=== PATIENT | female | born 1990 | race Caucasian/White ===

== ENCOUNTER 2016-12-19 12:30 | Emergency (ER) | payer OTHER ==
[2016-12-19 14:45] LABS: MEAN CORPUSCULAR HEMOGLOBIN 30.3 pg (27.0-33.0); MEAN CORPUSCULAR HGB CONC 33.9 g/dl (32.0-36.5); MEAN CORPUSCULAR VOLUME 89.2 fl (80.0-96.0); WHITE BLOOD COUNT 10.2 K/mm3 (4.0-10.0)
--- NOTE | 2016-12-19 16:27 | EDDOCDS ---
Physician Documentation [facility] Name: Lynnette Hinojosa Age: 26 yrs Sex: Female : 1990 Arrival Date: 12/19/2016 Time: 12:30 Bed PR Private MD: NO PRIMARY PHYSICIAN, . Disposition: 12/19/16 16:13 Discharged to Home/Self Care. Impression: related conditions, unspecified, first trimester, Pelvic and perineal pain. - Condition is Stable. - Discharge Instructions: First Trimester of , Pelvic Pain, Female. - Medication Reconciliation form. - Follow up: Your Family Nurse Practitioner; When: Call to arrange an appointment; Reason: Wound/Symptom Recheck, Recheck today's complaints, Worsening of conditions, Continuance of care. - Problem is an ongoing problem. - Symptoms are unchanged. Historical: - Allergies: Ibuprofen (Upset stomach); - Home Meds: 1. Folic Acid Oral 1 tab once daily 2. Prilosec Oral 1 cap once daily 3. Enbrel 25 mg (1 mL) SubQ solr 1 mL 2 times per wk - PMHx: Arthritis; Gastric Reflux; - PSHx: right foot surgery; - Social history: Smoking status: Patient states was never smoker of tobacco. No barriers to communication noted, The patient speaks fluent Malawian. - Family history: Not pertinent. - : The pt / caregiver states he / she is not on anticoagulants. Home medication list is obtained from the patient. - Exposure Risk Screening:: None identified. 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 1 in. (154.94 cm); Pain 9/10; 16:14 BP 133 / 80; Pulse 102; Resp 18; Temp 97.6(O); Pulse Ox 98% on R/A; Pain 5/10; ct3 12:32 Body Mass Index 30.23 (72.57 kg, 154.94 cm) elp MDM: 14:20 Complete Blood Count Ordered. EDMS 14:20 Hcg, Serum Quantitative Ordered. EDMS 14:20 Rh Only Ordered. EDMS 14:20 Urinalysis Ordered. EDMS 14:20 Urine Culture Ordered. EDMS 14:22 US 1st trimester Ordered. EDMS 14:39 Financial registration complete. lg 15:06 TRANSVAGINAL US Ordered. EDMS 15:06 DUPLEX SCAN LIMITED (DOPPLER) Ordered. EDMS 15:15 [facility] Payment Agreement was scanned into [employer] and attached to record. lg 16:01 Complete Blood Count Reviewed. cc10 16:01 Urinalysis Reviewed. cc10 16:01 Hcg, Serum Quantitative Reviewed. cc10 16:01 Rh Only Reviewed. cc10 Signatures: Dispatcher [employer] Garcia CarrasquilloRN RN ms2 [place], Reg Reg lg Brooke PalaciosRN RN rs3 Manohar Vogt, PAJoleen PAJoleen cc10 The chart was reviewed and I authenticate all verbal orders and agree with the evaluation and treatment provided.Corrections: (The following items were deleted from the chart) 12:52 12:51 Home Meds: embryl weekly; takes every thursday; rs3 rs3 Attachments: 15:15 [facility] Payment Agreement lg MTDD
--- NOTE | 2016-12-19 16:27 | EDDOCDS ---
Nurse's Notes [facility] Name: Lynnette Hinojosa Age: 26 yrs Sex: Female : 1990 Arrival Date: 12/19/2016 Time: 12:30 Bed PR Private MD: NO PRIMARY PHYSICIAN, . Diagnosis: related conditions, unspecified, first trimester;Pelvic and perineal pain Presentation: 12/19 12:48 Presenting complaint: Patient states: back pain radiates lower abdomen, vomiting since rs3 last night. Risk factors: the patient reports no vaginal bleeding. Adult Sepsis Screening: The patient does not have new or worsening altered mentation. Patient's respiratory rate is less than 22. Systolic blood pressure is greater than 100. Patient has a qSOFA score of 0- Negative Sepsis Screen. Suicide/Homicide risk assessment- the patient denies having any suicidal and/or homicidal ideations and does not present with any other emotional, behavioral or mental health complaints. Status: Patient is not a cash register servicer or dependent. Transition of care: patient was not received from another setting of care. 12:48 Acuity: JULIO CESAR Level 4 rs3 12:48 Method Of Arrival: Walkin/Carried/Asstd rs3 Triage Assessment: 12:51 General: Appears in no apparent distress. Pain: Location: lumbar area. Pt Declines HIV rs3 testing. GI: Parent/caregiver reports the patient having nausea. 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 Folic Acid Oral 1 tab once daily 2. Prilosec Oral 1 cap once daily 3. Enbrel 25 mg (1 mL) SubQ solr 1 mL 2 times per wk - PMHx: Arthritis; Gastric Reflux; - PSHx: right foot surgery; - Social history: Smoking status: Patient states was never smoker of tobacco. No barriers to communication noted, The patient speaks fluent Yakut. - Family history: Not pertinent. - : The pt / caregiver states he / she is not on anticoagulants. Home medication list is obtained from the patient. - Exposure Risk Screening:: None identified. Screenin:25 Screening information is obtained from prior medical records. Fall risk: No risks ms2 identified. Assistance ADL's: requires no assistance with activities of daily living. Abuse/DV Screen: The patient / caregiver reports he/she is: not in a situation that causes fear, pain or injury. Nutritional screening: No deficits noted. Advance Directives: Currently, there is no health care proxy. There is no active DNR order. There is no living will. There is no Power of Chief Investment Officer. Advance directive information has not previously been placed in an [facility] medical record. Further advance directive information is declined. home support is adequate. Assessment: 16:20 General: Appears in no apparent distress, Behavior is cooperative. Neurological: Level ms2 of Consciousness is awake, alert, obeys commands. Respiratory: No deficits noted. Airway is patent Respiratory effort is even, unlabored, Respiratory pattern is regular, symmetrical. GI: Abdomen is non- distended. Derm: Skin is pink, warm & dry. Musculoskeletal: Range of motion intact in all extremities. Vital Signs: 12:32 BP 142 / 85; Pulse 99; Resp 18; Temp 99.1; Pulse Ox 99% ; Weight 72.57 kg; Height 5 ft. elp 1 in. (154.94 cm); Pain 9/10; 16:14 BP 133 / 80; Pulse 102; Resp 18; Temp 97.6(O); Pulse Ox 98% on R/A; Pain 5/10; ct3 12:32 Body Mass Index 30.23 (72.57 kg, 154.94 cm) elp Vitals: 12:32 Log In Time: December 19, 2016 at 12:30. elp ED Course: 12:32 Patient visited by No Moran PCA. elp 12:32 NO PRIMARY PHYSICIAN, . is Private Physician. elp 12:32 Patient moved to Waiting elp 12:33 Patient moved to Pre RCE elp 12:49 Triage Initiated rs3 13:50 Patient moved to Triage 1 dwg 14:09 Manohar Vogt [facility]-C [facility] cc10 14:09 Maximilian Jackson MD is Attending Physician. cc10 14:15 Patient visited by Manohar Vogt PA-C. cc10 14:15 Patient visited by Manohar Vogt PA-C. cc10 14:32 Patient moved to TR3 ct3 14:32 Complete Blood Count Sent. ct3 14:32 Hcg, Serum Quantitative Sent. ct3 14:32 Rh Only Sent. ct3 14:32 Urinalysis Sent. ct3 14:32 Urine Culture Sent. ct3 14:37 Patient moved to TR1 ct3 14:50 Patient visited by Helen Salcido PCA. ct3 15:01 Patient moved to Ultrasound sm5 15:15 [facility] Payment Agreement was scanned into [employer] and attached to record. lg 15:51 Patient moved to TR1 sm5 15:54 Patient visited by Helen Salcido PCA. ct3 16:03 Patient moved to PR2 / ct3 16:13 Your Flanging Roll Operator is Referral Physician. cc10 16:15 Patient visited by Helen Salcido PCA. ct3 16:20 Patient visited by Garcia Phillips RN. ms2 16:25 The patient / caregiver is instructed regarding the plan of care and ED course. ms2 16:25 No IV's were initiated during this patient's visit. No procedures done that require ms2 assistance. Order Results: Lab Order: Complete Blood Count; SPEC'M 12/19/16 14:32 Test: WHITE BLOOD COUNT; Value: 10.2; Range: 4.0-10.0; Abnormal: Above high normal; Units: K/mm3; Status: F Test: RED BLOOD COUNT; Value: 4.38; Range: 4.00-5.40; Units: M/mm3; Status: F Test: HEMOGLOBIN; Value: 13.3; Range: 12.0-16.0; Units: g/dl; Status: F Test: HEMATOCRIT; Value: 39.1; Range: 36.0-47.0; Units: %; Status: F Test: MEAN CORPUSCULAR VOLUME; Value: 89.2; Range: 80.0-96.0; Units: fl; Status: F Test: MEAN CORPUSCULAR HEMOGLOBIN; Value: 30.3; Range: 27.0-33.0; Units: pg; Status: F Test: MEAN CORPUSCULAR HGB CONC; Value: 33.9; Range: 32.0-36.5; Units: g/dl; Status: F Test: RED CELL DISTRIBUTION WIDTH; Value: 13.0; Range: 11.5-14.5; Units: %; Status: F Test: PLATELET COUNT, AUTOMATED; Value: 297; Range: 150-450; Units: k/mm3; Status: F Lab Order: Hcg, Serum Quantitative; [facility] 12/19/16 14:32 Test: HCG, SERUM QUANTITATIVE; Value: 8436; Units: MIU/ML; Status: F Test Note: ; GESTATIONAL AGE APPROXIMATE HCG RANGE (MIU/ML) 0.2-1 WEEK 5-50 1-2 WEEKS 50-500 2-3 WEEKS 100-5,000 3-4 WEEKS 500-10,000 4-5 WEEKS 1,000-50,000 5-6 WEEKS 10,000-100,000 6-8 WEEKS 15,000-200,000 2-3 MONTHS 10,000-100,000 NON FEMALES LESS THAN 3.0 Patient samples may contain human heterophilic antibodies that could react with immunoassays to give falsely elevated or depressed results. This assay has been designed to minimize interference from heterophilic antibodies. Elevated hCG levels have also been associated with trophoblastic disease and nontrophoblastic neoplasms. The possibility of having these diseases should be considered before a diagnosis of is made. This test is not intended for use as a surrogate marker for aiding in the diagnosis or monitoring the treatment of cancer patients. Siemens Questli methodology. Lab Order: Rh Only; [facility] 12/19/16 14:32 Test: RH; Value: NEGATIVE; Status: F Lab Order: Urinalysis; [facility] 12/19/16 14:32 Test: APPEARANCE, URINE; Value: CLEAR; Range: CLEAR; Status: F Test: COLOR, URINE; Value: STRAW; Range: YELLOW; Status: F Test: PH,URINE; Value: 6.0; Range: 5.0-9.0; Units: UNITS; Status: F Test: SPECIFIC GRAVITY URINE AUTO; Value: 1.005; Range: 1.002-1.035; Status: F Test: PROTEIN, URINE AUTO; Value: NEGATIVE; Range: NEGATIVE; Units: mg/dL; Status: F Test: GLUCOSE, URINE (UA) AUTO; Value: NEGATIVE; Range: NEGATIVE; Units: mg/dL; Status: F Test: KETONE, URINE AUTO; Value: TRACE; Range: NEGATIVE; Abnormal: Above high normal; Units: mg/dL; Status: F Test: UROBILINOGEN, URINE AUTO; Value: 0.2; Range: 0.0-2.0; Units: mg/dL; Status: F Test: BILIRUBIN, URINE AUTO; Value: NEGATIVE; Range: NEGATIVE; Status: F Test: NITRITE, URINE AUTO; Value: NEGATIVE; Range: NEGATIVE; Status: F Test: LEUKOCYTE ESTERASE, URINE AUTO; Value: NEGATIVE; Range: NEGATIVE; Status: F Test: BLOOD, URINE BLOOD; Value: NEGATIVE; Range: NEGATIVE; Status: F Test: WBC, URINE AUTO; Value: 1; Range: 0-3; Units: /HPF; Status: F Test: RBC, URINE AUTO; Value: 1; Range: 0-3; Units: /HPF; Status: F Test: BACTERIA, URINE AUTO; Value: 1+; Range: NEGATIVE; Abnormal: Above high normal; Status: F Test: SQUAMOUS EPITHELIAL CELL UR AU; Value: 1; Range: 0-6; Units: /HPF; Status: F Test: MUCUS, URINE; Value: SMALL; Range: NEGATIVE; Status: F Test: HYALINE CAST, URINE AUTO; Value: 0; Range: 0-1; Units: /LPF; Status: F Outcome: 16:13 Discharge ordered by Provider. cc10 16:26 Discharge Assessment: patient administered narcotics - no. The following High Risk ms2 Discharge criteria are identified: None. Discharged to home ambulatory. Condition: stable. Discharge instructions given to patient, Instructed on discharge instructions, follow up and referral plans. Demonstrated understanding of instructions, Pt was receptive of discharge instructions/ teaching. No special radiology studies were completed. Property sent home with patient. 16:26 Patient left the ED. ms2 Signatures: Garcia PhillipsRN RN ms2 Fredy Yee, RN RN Alejo Nguyen, Jeremias Reg Liliam Kilgore Rosemary, RN RN rs3 Helen Salcido, AIRCRAFT SHIPPING CHECKER AIRCRAFT SHIPPING CHECKER ct3 No Moran, AIRCRAFT SHIPPING CHECKER AIRCRAFT SHIPPING CHECKER elp Manohar Vogt, PA-C PA-C cc10 Corrections: (The following items were deleted from the chart) 12:52 12:51 Home Meds: embryl weekly; takes every thursday; rs3 rs3 MTDD
[2016-12-19] MEDS ORDERED: IPRATROPIUM 0.5MG/ALBUTEROL 2.5MG INH SOL UD 3ML (DUONEB)(J7620) As Ordered ONE (20:27)
[2016-12-20] MEDS ORDERED: methylPREDNISolone INJ 125 MG/2 ML VIAL (J2930) As Ordered ONE (04:35)
[2016-12-20] MEDS ORDERED: IPRATROPIUM 0.5MG/ALBUTEROL 2.5MG INH SOL UD 3ML (DUONEB)(J7620) As Ordered ONE (08:08)
--- NOTE | 2016-12-20 22:05 | REP ---
First trimester OB ultrasound 12/19/16 Indication: Abdominal pain, cramping Comparison: None Technique: Transabdominal and transvaginal ultrasound was performed Findings: Date of last menstrual period is 11/13/16. According to last menstrual period fetus should be 0-cpdi-6-day gestational age. The patient is G1, P 0. Uterus measures 9.3 x 5.0 x 5.5 cm and is anteverted. There is a single intrauterine gestational sac measuring 0.98 x 1.08 x 0.64 cm corresponding to a mean sac size of 0.9 mm corresponding with 1-iobn-0-day gestational age. There is a small yolk sac within the intrauterine gestational sac. There is no definite pole at this time. There is no visualized subchorionic hemorrhage. There is a very minimally complex right adnexal cyst which measures 6.9 x 6.1 x 5.1 cm. The right ovary measures 9.8 x 7.6 x 5.7 cm. Left ovary measures 2.1 x 2.1 x 1.8 cm contains a few small follicles. Perfusion is noted to the bilateral ovaries, therefore no evidence of torsion. There is trace free fluid in the posterior cul-de-sac. Impression 1. Single intrauterine gestational sac with a mean sac diameter of 0.9 mm corresponding to 5 week 5-day gestational age. A small yolk sac is seen but no pole is yet identified. Recommend correlation with serial quantitative beta HCG and follow-up for sound to ensure a viable intrauterine with a pole. 2. Minimally complex 6.9 cm right ovarian cyst. Unremarkable left ovary. Perfusion is noted to the bilateral ovaries and therefore no evidence of torsion. 3. Trace free fluid in posterior cul-de-sac. Signed by Sissy Marte MD 12/20/2016 09:56 P
--- NOTE | 2016-12-21 17:28 | EDDOCDS ---
Nurse's Notes [facility] Name: Lynnette Hinojosa Age: 26 yrs Sex: Female : 1990 Arrival Date: 12/19/2016 Time: 12:30 Bed PR Private MD: NO PRIMARY PHYSICIAN, . Diagnosis: related conditions, unspecified, first trimester;Pelvic and perineal pain Presentation: 12/19 12:48 Presenting complaint: Patient states: back pain radiates lower abdomen, vomiting since rs3 last night. Risk factors: the patient reports no vaginal bleeding. Adult Sepsis Screening: The patient does not have new or worsening altered mentation. Patient's respiratory rate is less than 22. Systolic blood pressure is greater than 100. Patient has a qSOFA score of 0- Negative Sepsis Screen. Suicide/Homicide risk assessment- the patient denies having any suicidal and/or homicidal ideations and does not present with any other emotional, behavioral or mental health complaints. Status: Patient is not a child and family services specialist or dependent. Transition of care: patient was not received from another setting of care. 12:48 Acuity: JULIO CESAR Level 4 rs3 12:48 Method Of Arrival: Walkin/Carried/Asstd rs3 Triage Assessment: 12:51 General: Appears in no apparent distress. Pain: Location: lumbar area. Pt Declines HIV rs3 testing. GI: Parent/caregiver reports the patient having nausea. 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 Folic Acid Oral 1 tab once daily 2. Prilosec Oral 1 cap once daily 3. Enbrel 25 mg (1 mL) SubQ solr 1 mL 2 times per wk - PMHx: Arthritis; Gastric Reflux; - PSHx: right foot surgery; - Social history: Smoking status: Patient states was never smoker of tobacco. No barriers to communication noted, The patient speaks fluent Greek. - Family history: Not pertinent. - : The pt / caregiver states he / she is not on anticoagulants. Home medication list is obtained from the patient. - Exposure Risk Screening:: None identified. Screenin:25 Screening information is obtained from prior medical records. Fall risk: No risks ms2 identified. Assistance ADL's: requires no assistance with activities of daily living. Abuse/DV Screen: The patient / caregiver reports he/she is: not in a situation that causes fear, pain or injury. Nutritional screening: No deficits noted. Advance Directives: Currently, there is no health care proxy. There is no active DNR order. There is no living will. There is no Power of Medical Library Assistant. Advance directive information has not previously been placed in an [facility] medical record. Further advance directive information is declined. home support is adequate. Assessment: 16:20 General: Appears in no apparent distress, Behavior is cooperative. Neurological: Level ms2 of Consciousness is awake, alert, obeys commands. Respiratory: No deficits noted. Airway is patent Respiratory effort is even, unlabored, Respiratory pattern is regular, symmetrical. GI: Abdomen is non- distended. Derm: Skin is pink, warm & dry. Musculoskeletal: Range of motion intact in all extremities. Vital Signs: 12:32 BP 142 / 85; Pulse 99; Resp 18; Temp 99.1; Pulse Ox 99% ; Weight 72.57 kg; Height 5 ft. elp 1 in. (154.94 cm); Pain 9/10; 16:14 BP 133 / 80; Pulse 102; Resp 18; Temp 97.6(O); Pulse Ox 98% on R/A; Pain 5/10; ct3 12:32 Body Mass Index 30.23 (72.57 kg, 154.94 cm) elp Vitals: 12:32 Log In Time: December 19, 2016 at 12:30. elp ED Course: 12:32 Patient visited by No Moran PCA. elp 12:32 NO PRIMARY PHYSICIAN, . is Private Physician. elp 12:32 Patient moved to Waiting elp 12:33 Patient moved to Pre RCE elp 12:49 Triage Initiated rs3 13:50 Patient moved to Triage 1 dwg 14:09 [facility] cc10 14:09 Maximilian Jackson MD is Attending Physician. cc10 14:15 Patient visited by Manohar Vogt PA-C. cc10 14:15 Patient visited by Manohar Vogt PA-C. cc10 14:32 Patient moved to TR3 ct3 14:32 Complete Blood Count Sent. ct3 14:32 Hcg, Serum Quantitative Sent. ct3 14:32 Rh Only Sent. ct3 14:32 Urinalysis Sent. ct3 14:32 Urine Culture Sent. ct3 14:37 Patient moved to TR1 ct3 14:50 Patient visited by Helen Salcido PCA. ct3 15:01 Patient moved to Ultrasound sm5 15:15 [facility] [place] Agreement was scanned into [employer] and attached to record. lg 15:51 Patient moved to TR1 sm5 15:54 Patient visited by Helen Salcido PCA. ct3 16:03 Patient moved to PR2 / ct3 16:13 Your [facility] [employer] is Referral Physician. cc10 16:15 Patient visited by Helen Salcido PCA. ct3 16:20 Patient visited by Garcia Phillips RN. ms2 16:25 The patient / caregiver is instructed regarding the plan of care and ED course. ms2 16:25 No IV's were initiated during this patient's visit. No procedures done that require ms2 assistance. 12/20 12:51 T-Sheet-- Draft Copy was scanned into [employer] and attached to record. gb 22:57 US 1st trimester Returned. EDMS Order Results: Lab Order: Complete Blood Count; SPEC'M 12/19/16 14:32 Test: WHITE BLOOD COUNT; Value: 10.2; Range: 4.0-10.0; Abnormal: Above high normal; Units: K/mm3; Status: F Test: RED BLOOD COUNT; Value: 4.38; Range: 4.00-5.40; Units: M/mm3; Status: F Test: HEMOGLOBIN; Value: 13.3; Range: 12.0-16.0; Units: g/dl; Status: F Test: HEMATOCRIT; Value: 39.1; Range: 36.0-47.0; Units: %; Status: F Test: MEAN CORPUSCULAR VOLUME; Value: 89.2; Range: 80.0-96.0; Units: fl; Status: F Test: MEAN CORPUSCULAR HEMOGLOBIN; Value: 30.3; Range: 27.0-33.0; Units: pg; Status: F Test: MEAN CORPUSCULAR HGB CONC; Value: 33.9; Range: 32.0-36.5; Units: g/dl; Status: F Test: RED CELL DISTRIBUTION WIDTH; Value: 13.0; Range: 11.5-14.5; Units: %; Status: F Test: PLATELET COUNT, AUTOMATED; Value: 297; Range: 150-450; Units: k/mm3; Status: F Lab Order: Hcg, Serum Quantitative; [facility]' 12/19/16 14:32 Test: HCG, SERUM QUANTITATIVE; Value: 8436; Units: MIU/ML; Status: F Test Note: ; GESTATIONAL AGE APPROXIMATE HCG RANGE (MIU/ML) 0.2-1 WEEK 5-50 1-2 WEEKS 50-500 2-3 WEEKS 100-5,000 3-4 WEEKS 500-10,000 4-5 WEEKS 1,000-50,000 5-6 WEEKS 10,000-100,000 6-8 WEEKS 15,000-200,000 2-3 MONTHS 10,000-100,000 NON FEMALES LESS THAN 3.0 Patient samples may contain human heterophilic antibodies that could react with immunoassays to give falsely elevated or depressed results. This assay has been designed to minimize interference from heterophilic antibodies. Elevated hCG levels have also been associated with trophoblastic disease and nontrophoblastic neoplasms. The possibility of having these diseases should be considered before a diagnosis of is made. This test is not intended for use as a surrogate marker for aiding in the diagnosis or monitoring the treatment of cancer patients. Siemens [employer] methodology. Lab Order: Rh Only; [facility] 12/19/16 14:32 Test: RH; Value: NEGATIVE; Status: F Lab Order: Urinalysis; [facility]' 12/19/16 14:32 Test: APPEARANCE, URINE; Value: CLEAR; Range: CLEAR; Status: F Test: COLOR, URINE; Value: STRAW; Range: YELLOW; Status: F Test: PH,URINE; Value: 6.0; Range: 5.0-9.0; Units: UNITS; Status: F Test: SPECIFIC GRAVITY URINE AUTO; Value: 1.005; Range: 1.002-1.035; Status: F Test: PROTEIN, URINE AUTO; Value: NEGATIVE; Range: NEGATIVE; Units: mg/dL; Status: F Test: GLUCOSE, URINE (UA) AUTO; Value: NEGATIVE; Range: NEGATIVE; Units: mg/dL; Status: F Test: KETONE, URINE AUTO; Value: TRACE; Range: NEGATIVE; Abnormal: Above high normal; Units: mg/dL; Status: F Test: UROBILINOGEN, URINE AUTO; Value: 0.2; Range: 0.0-2.0; Units: mg/dL; Status: F Test: BILIRUBIN, URINE AUTO; Value: NEGATIVE; Range: NEGATIVE; Status: F Test: NITRITE, URINE AUTO; Value: NEGATIVE; Range: NEGATIVE; Status: F Test: LEUKOCYTE ESTERASE, URINE AUTO; Value: NEGATIVE; Range: NEGATIVE; Status: F Test: BLOOD, URINE BLOOD; Value: NEGATIVE; Range: NEGATIVE; Status: F Test: WBC, URINE AUTO; Value: 1; Range: 0-3; Units: /HPF; Status: F Test: RBC, URINE AUTO; Value: 1; Range: 0-3; Units: /HPF; Status: F Test: BACTERIA, URINE AUTO; Value: 1+; Range: NEGATIVE; Abnormal: Above high normal; Status: F Test: SQUAMOUS EPITHELIAL CELL UR AU; Value: 1; Range: 0-6; Units: /HPF; Status: F Test: MUCUS, URINE; Value: SMALL; Range: NEGATIVE; Status: F Test: HYALINE CAST, URINE AUTO; Value: 0; Range: 0-1; Units: /LPF; Status: F Lab Order: Urine Culture; SPEC'M 12/19/16 14:32 Test: URINE CULTURE; Value: URINE CULTURE RESULT NO GROWTH CLINICAL SIGNIFICANCE 1 ORGANISM; Status: F Radiology Order: US 1st trimester Test: US 1st trimester REASON FOR EXAMINATION: Abdomen Pain; First trimester OB ultrasound 12/19/16; ; Indication: Abdominal pain, cramping; ; Comparison: None; ; Technique: Transabdominal and transvaginal ultrasound was performed; ; Findings: Date of last menstrual period is 11/13/16. According to last menstrual; period fetus should be 8-lkpp-4-day gestational age. The patient is G1, P 0.; ; Uterus measures 9.3 x 5.0 x 5.5 cm and is anteverted.; ; There is a single intrauterine gestational sac measuring 0.98 x 1.08 x 0.64 cm; corresponding to a mean sac size of 0.9 mm corresponding with 0-zekc-3-day; gestational age. There is a small yolk sac within the intrauterine gestational; sac. There is no definite pole at this time. There is no visualized; subchorionic hemorrhage.; ; There is a very minimally complex right adnexal cyst which measures 6.9 x 6.1 x; 5.1 cm. The right ovary measures 9.8 x 7.6 x 5.7 cm.; ; Left ovary measures 2.1 x 2.1 x 1.8 cm contains a few small follicles. Perfusion; is noted to the bilateral ovaries, therefore no evidence of torsion.; ; There is trace free fluid in the posterior cul-de-sac.; ; Impression; 1. Single intrauterine gestational sac with a mean sac diameter of 0.9 mm; corresponding to 5 week 5-day gestational age. A small yolk sac is seen but no; pole is yet identified. Recommend correlation with serial quantitative; beta HCG and follow-up for sound to ensure a viable intrauterine with a; pole.; ; 2. Minimally complex 6.9 cm right ovarian cyst. Unremarkable left ovary.; Perfusion is noted to the bilateral ovaries and therefore no evidence of; torsion.; ; 3. Trace free fluid in posterior cul-de-sac.; ; ; ; ; Signed by; Sissy Marte MD 12/20/2016 09:56 P; Outcome: 12/19 16:13 Discharge ordered by Provider. cc10 16:26 Discharge Assessment: patient administered narcotics - no. The following High Risk ms2 Discharge criteria are identified: None. Discharged to home ambulatory. Condition: stable. Discharge instructions given to patient, Instructed on discharge instructions, follow up and referral plans. Demonstrated understanding of instructions, Pt was receptive of discharge instructions/ teaching. Ultrasound Study completed. Property sent home with patient. 16:26 Patient left the ED. ms2 Signatures: Dispatcher [employer] EDMS Garcia Phillips RN RN ms2 Fredy Yee RN RN dwg Patsy York, Reg Reg gb [place], Reg Reg lg Liliam Ramirez sm5 Brooke Palacios RN RN rs3 Helen Salcido, BUSINESS ANALYSIS CONSULTANT BUSINESS ANALYSIS CONSULTANT ct3 No Moran, BUSINESS ANALYSIS CONSULTANT BUSINESS ANALYSIS CONSULTANT elp Manohar Vogt, PA-C PA-C cc10 Corrections: (The following items were deleted from the chart) 12:52 12:51 Home Meds: embryl weekly; takes every thursday; rs3 rs3 16:27 16:26 No special radiology studies were completed ms2 ms2 Chart Complete MTDD
--- NOTE | 2016-12-21 17:28 | EDDOCDS ---
Physician Documentation [facility] Name: Lynnette Hinojosa Age: 26 yrs Sex: Female : 1990 Arrival Date: 12/19/2016 Time: 12:30 Bed PR Private MD: NO PRIMARY PHYSICIAN, . Disposition: 12/19/16 16:13 Discharged to Home/Self Care. Impression: related conditions, unspecified, first trimester, Pelvic and perineal pain. - Condition is Stable. - Discharge Instructions: First Trimester of , Pelvic Pain, Female. - Medication Reconciliation form. - Follow up: Your Population Health Manager; When: Call to arrange an appointment; Reason: Wound/Symptom Recheck, Recheck today's complaints, Worsening of conditions, Continuance of care. - Problem is an ongoing problem. - Symptoms are unchanged. Historical: - Allergies: Ibuprofen (Upset stomach); - Home Meds: 1. Folic Acid Oral 1 tab once daily 2. Prilosec Oral 1 cap once daily 3. Enbrel 25 mg (1 mL) SubQ solr 1 mL 2 times per wk - PMHx: Arthritis; Gastric Reflux; - PSHx: right foot surgery; - Social history: Smoking status: Patient states was never smoker of tobacco. No barriers to communication noted, The patient speaks fluent [place]. - Family history: Not pertinent. - : The pt / caregiver states he / she is not on anticoagulants. Home medication list is obtained from the patient. - Exposure Risk Screening:: None identified. 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 1 in. (154.94 cm); Pain 9/10; 16:14 BP 133 / 80; Pulse 102; Resp 18; Temp 97.6(O); Pulse Ox 98% on R/A; Pain 5/10; ct3 12:32 Body Mass Index 30.23 (72.57 kg, 154.94 cm) elp MDM: 14:20 Complete Blood Count Ordered. EDMS 14:20 Hcg, Serum Quantitative Ordered. EDMS 14:20 Rh Only Ordered. EDMS 14:20 Urinalysis Ordered. EDMS 14:20 Urine Culture Ordered. EDMS 14:22 US 1st trimester Ordered. EDMS 14:39 Financial registration complete. lg 15:06 TRANSVAGINAL US Ordered. EDMS 15:06 DUPLEX SCAN LIMITED (DOPPLER) Ordered. EDMS 15:15 [facility] [place] Agreement was scanned into [employer] and attached to record. lg 16:01 Complete Blood Count Reviewed. cc10 16:01 Urinalysis Reviewed. cc10 16:01 Hcg, Serum Quantitative Reviewed. cc10 16:01 Rh Only Reviewed. cc10 12/20 12:51 T-Sheet-- Draft Copy was scanned into [employer] and attached to record. gb Signatures: Dispatcher [employer] Garcia Carrasquillo,RN RN ms2 Patsy York, Reg Reg gb [place], Reg Reg lg Brooke Palacios RN RN rs3 Manohar Vogt, PATravisC PATravisC cc10 The chart was reviewed and I authenticate all verbal orders and agree with the evaluation and treatment provided.Corrections: (The following items were deleted from the chart) 12/19 12:52 12:51 Home Meds: embryl weekly; takes every thursday; rs3 rs3 Attachments: 15:15 [facility] Payment Agreement 12/20 12:51 T-Sheet-- Draft Copy gb Chart Complete MTDD
--- NOTE | 2016-12-21 17:28 | EDDOCDS ---
Physician Documentation [facility] Name: Lynnette Hinojosa Age: 26 yrs Sex: Female : 1990 Arrival Date: 12/19/2016 Time: 12:30 Bed PR Private MD: NO PRIMARY PHYSICIAN, . Disposition: 12/19/16 16:13 Discharged to Home/Self Care. Impression: related conditions, unspecified, first trimester, Pelvic and perineal pain. - Condition is Stable. - Discharge Instructions: First Trimester of , Pelvic Pain, Female. - Medication Reconciliation form. - Follow up: Your Pipeline Welder; When: Call to arrange an appointment; Reason: Wound/Symptom Recheck, Recheck today's complaints, Worsening of conditions, Continuance of care. - Problem is an ongoing problem. - Symptoms are unchanged. Historical: - Allergies: Ibuprofen (Upset stomach); - Home Meds: 1. Folic Acid Oral 1 tab once daily 2. Prilosec Oral 1 cap once daily 3. Enbrel 25 mg (1 mL) SubQ solr 1 mL 2 times per wk - PMHx: Arthritis; Gastric Reflux; - PSHx: right foot surgery; - Social history: Smoking status: Patient states was never smoker of tobacco. No barriers to communication noted, The patient speaks fluent [place]er. - Family history: Not pertinent. - : The pt / caregiver states he / she is not on anticoagulants. Home medication list is obtained from the patient. - Exposure Risk Screening:: None identified. 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 1 in. (154.94 cm); Pain 9/10; 16:14 BP 133 / 80; Pulse 102; Resp 18; Temp 97.6(O); Pulse Ox 98% on R/A; Pain 5/10; ct3 12:32 Body Mass Index 30.23 (72.57 kg, 154.94 cm) elp MDM: 14:20 Complete Blood Count Ordered. EDMS 14:20 Hcg, Serum Quantitative Ordered. EDMS 14:20 Rh Only Ordered. EDMS 14:20 Urinalysis Ordered. EDMS 14:20 Urine Culture Ordered. EDMS 14:22 US 1st trimester Ordered. EDMS 14:39 Financial registration complete. lg 15:06 TRANSVAGINAL US Ordered. EDMS 15:06 DUPLEX SCAN LIMITED (DOPPLER) Ordered. EDMS 15:15 [facility] [place] Agreement was scanned into [email or web address] and attached to record. lg 16:01 Complete Blood Count Reviewed. cc10 16:01 Urinalysis Reviewed. cc10 16:01 Hcg, Serum Quantitative Reviewed. cc10 16:01 Rh Only Reviewed. cc10 12/20 12:51 T-Sheet-- Draft Copy was scanned into [employer] and attached to record. gb Signatures: Dispatcher [employer] Garcia Carrasquillo,RN RN ms2 Patsy York, Reg Reg gb [place], Reg Reg lg Brooke Palacios RN RN rs3 Manohar Vogt, PATravisC PATravisC cc10 The chart was reviewed and I authenticate all verbal orders and agree with the evaluation and treatment provided.Corrections: (The following items were deleted from the chart) 12/19 12:52 12:51 Home Meds: embryl weekly; takes every thursday; rs3 rs3 Attachments: 15:15 [facility] Payment Agreement 12/20 12:51 T-Sheet-- Draft Copy gb Chart Complete MTDD
== END 2016-12-19 16:26 | disposition home or self-care (01) ==
LOC: M ED 12:30
DX: O99.89 Other specified diseases and conditions complicating pregnancy, childbirth and the puerperium (principal); R10.2 Pelvic and perineal pain; Z3A.01 Less than 8 weeks gestation of pregnancy; O99.611 Diseases of the digestive system complicating pregnancy, first trimester; K21.9 Gastro-esophageal reflux disease without esophagitis; M19.90 Unspecified osteoarthritis, unspecified site; Z79.899 Other long term (current) drug therapy; Z88.6 Allergy status to analgesic agent

== ENCOUNTER 2017-01-02 13:24 | Emergency (ER) | payer OTHER ==
[2017-01-02] MEDS ORDERED: METOCLOPRAMIDE INJ 10MG/2ML VIAL (J2765) As Ordered ONE (14:06)
[2017-01-02 14:20] LABS: MEAN CORPUSCULAR HEMOGLOBIN 30.8 pg (27.0-33.0); MEAN CORPUSCULAR HGB CONC 35.5 g/dl (32.0-36.5); MEAN CORPUSCULAR VOLUME 86.9 fl (80.0-96.0); RED CELL DISTRIBUTION WIDTH 12.9 % (11.5-14.5); WHITE BLOOD COUNT 12.1 K/mm3 (4.0-10.0)
[2017-01-02] MEDS ORDERED: PROMETHAZINE INJ 25 MG/ML VIAL (J2550) As Ordered ONE (16:29)
--- NOTE | 2017-01-02 19:53 | EDDOCDS ---
Nurse's Notes [facility] Name: Lynnette Hinojosa Age: 26 yrs Sex: Female : 1990 Arrival Date: 01/02/2017 Time: 13:24 Bed 8 Private MD: Vidhi Welch Diagnosis: Mild hyperemesis gravidarum Presentation: 01/02 13:28 Presenting complaint: Patient states: 7 weeks and nausea and vomiting slight pml lower abdominal pain. took zofran at 0800 this AM. Risk factors: the patient reports no vaginal bleeding. Adult Sepsis Screening: The patient does not have new or worsening altered mentation. Patient's respiratory rate is less than 22. Systolic blood pressure is greater than 100. Patient has a qSOFA score of 0- Negative Sepsis Screen. Suicide/Homicide risk assessment- the patient denies having any suicidal and/or homicidal ideations and does not present with any other emotional, behavioral or mental health complaints. Status: Patient is not a director career services or dependent. Transition of care: patient was not received from another setting of care. 13:28 Acuity: JULIO CESAR Level 3 pml 13:28 Method Of Arrival: Ambulance pml Triage Assessment: 13:44 General: Appears in no apparent distress, comfortable, Behavior is appropriate for age, pml cooperative. Pain: Location: suprapubic area Pain currently is 7 out of 10 on a pain scale. Quality of pain is described as crampy. HIV screening NA for this visit Offered previously. The patient is triaged at the bedside. See Assessment in Nurses Notes section of ED record. Neurological: Level of Consciousness is awake, alert, Oriented to person, place, time. Cardiovascular: Capillary refill < 3 seconds. Respiratory: Airway is patent Respiratory effort is even, unlabored. GI: Abdomen is non- distended. Derm: Skin is pink, warm & dry. 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 Zofran (as hydrochloride) 8 mg Oral tab 1 tab every 8 hours - PMHx: Arthritis; Gastric Reflux; - PSHx: right foot surgery; - Social history: Smoking status: No barriers to communication noted, The patient speaks fluent Lithuanian, Speaks appropriately for age. - Family history: Not pertinent. - : The pt / caregiver states he / she is not on anticoagulants. Home medication list is obtained from the patient. - Exposure Risk Screening:: None identified. Screenin:50 Screening information is obtained from the patient. Fall risk: No risks identified. ko2 Assistance ADL's: requires no assistance with activities of daily living. Abuse/DV Screen: The patient / caregiver reports he/she is: not in a situation that causes fear, pain or injury. Nutritional screening: No deficits noted. Advance Directives: Currently, there is no health care proxy. There is no active DNR order. There is no living will. There is no Power of Marionette Performer. home support is adequate. Assessment: 13:45 General: see triage note. pml 14:14 General: Appears in no apparent distress, Behavior is appropriate for age, cooperative. pml Pain: Location: suprapubic area. Neurological: Level of Consciousness is awake, alert, Oriented to person, place, time. Cardiovascular: Capillary refill < 3 seconds. GI: Abdomen is non- distended Bowel sounds present X 4 quads. Abd is soft X 4 quads Abd is tender to palpation in suprapubic area, right lower quadrant and left lower quadrant. Derm: Skin is pink, warm & dry. 15:15 General: reports continued abdominal discomfort and vomiting small amounts of yellow pml colored emesis.. 15:53 General: tolerating small sips of PO fluids. pml 16:34 General: pt vomited small amount of liquid emesis. . pml 17:27 General: Appears in no apparent distress, to be sleeping. Neurological: Level of pml Consciousness is awake, alert, Oriented to person, place, time. Cardiovascular: Capillary refill < 3 seconds. Respiratory: Airway is patent Respiratory effort is even, unlabored. Derm: Skin is pink, warm & dry. 18:12 Reassessment: Patient states feeling better. Patient states symptoms have improved. pml General: diet tray provided,. encouraged to take start slowly with more bland options provided. 19:49 General: Appears in no apparent distress, comfortable, Behavior is appropriate for age, ko2 cooperative. Pain: Denies pain. Neurological: Level of Consciousness is awake, alert, Oriented to person, place, time. Respiratory: Airway is patent Respiratory effort is even, unlabored. Derm: Skin is pink, warm & dry. Vital Signs: 13:39 BP 123 / 80; Pulse 83; Resp 16; Temp 98.9(O); Pulse Ox 98% on R/A; Weight 63.5 kg; sew Height 5 ft. 11 in. (180.34 cm); Pain 7/10; 14:14 BP 118 / 72 Supine; Pulse 74; pml 14:14 BP 113 / 75 Sitting; Pulse 89; pml 14:14 BP 116 / 77 Standing; Pulse 92; pml 15:10 Pulse 78 MON; Pulse Ox 99% ; pml 15:10 BP 109 / 67 (auto/); pml 19:46 BP 110 / 68; Pulse 76; Resp 16; Temp 98.7; Pulse Ox 99% ; Pain 0/10; ko2 13:39 Body Mass Index 19.53 (63.50 kg, 180.34 cm) [facility] [place]: 13:39 Log In Time N/A - [place] [facility] [place] Course: 13:25 Patient visited by Dolores Muller PCA. rs6 13:25 Patient moved to Waiting rs6 13:26 Vidhi Welch RPA-C is Private Physician. rs6 13:28 Nubia Zaldivar,RN is Primary Nurse. hs1 13:28 Bebe Swain,BESSY is Primary Nurse. hs1 13:28 Patient moved to 8 hs1 13:31 Triage Initiated pml 13:38 [facility] 13:40 Patient visited by Susie Singh. sew 13:45 Patient visited by Bebe Swain,BESSY. pml 14:05 Patient visited by Sobeida Hong FNP. le 14:05 Patient visited by Sobeida Hong FNP. le 14:14 CBC Sent. ead 14:14 Hcg, Serum Quantitative Sent. ead 14:15 Inserted peripheral IV: 20gauge IV in right antecubital area and blood collected. pml Patient tolerated the procedure well. 14:16 Patient visited by Bebe Swain,BESSY. pml 15:16 Patient visited by Bebe Swain,BESSY. pml 15:18 [facility] [place] Payment Agreement was scanned into [employer] and attached to record. mm15 15:53 Patient visited by Bebe Swain,BESSY. pml 16:35 Patient visited by Bebe Swain RN. pml 17:27 Patient visited by Bebe Swain RN. pml 18:12 Patient visited by Bebe Swain RN. pml 19:02 Digna Resendiz,BESSY is Primary Nurse. ko2 19:13 Patient visited by Digna Resendiz RN. ko2 19:22 Brennan Tristan MD is Referral Physician. le 19:31 Primary Nurse role handed off by Bebe Swain RN mcp 19:51 The patient / caregiver is instructed regarding the plan of care and ED course. ko2 19:51 Discontinued lock intact, bleeding controlled, pressure dressing applied, No ko2 redness/swelling at site. No procedures done that require assistance. Administered Medications: 14:14 Drug: NS 0.9% 1000 ml [sodium chloride 0.9 % intravenous solution] Route: IV; Rate: ead bolus; Site: right antecubital; 15:15 Follow up: IV Status: Completed infusion; IV Intake: 1000ml pml 14:14 Drug: Metoclopramide 10 mg [metoclopramide 5 mg/mL injection solution] Route: IV; Rate: ead 40 mg/hr; Infused Over: 15 mins; Site: right antecubital; 16:34 Drug: Promethazine 25 mg [promethazine 25 mg/mL injection solution (1 mL)] Route: IVP; pml Site: right antecubital; Intake: 15:15 IV: 1000.00ml; Total: 1000.00ml. pml Order Results: Lab Order: Hcg, Serum Quantitative; SPEC'M 01/02/17 14:13 Test: HCG, SERUM QUANTITATIVE; Value: [id number]; Units: MIU/ML; Status: F Test Note: ; GESTATIONAL AGE APPROXIMATE HCG RANGE (MIU/ML) 0.2-1 WEEK 5-50 1-2 WEEKS 50-500 2-3 WEEKS 100-5,000 3-4 WEEKS 500-10,000 4-5 WEEKS 1,000-50,000 5-6 WEEKS 10,000-100,000 6-8 WEEKS 15,000-200,000 2-3 MONTHS 10,000-100,000 NON FEMALES LESS THAN 3.0 Patient samples may contain human heterophilic antibodies that could react with immunoassays to give falsely elevated or depressed results. This assay has been designed to minimize interference from heterophilic antibodies. Elevated hCG levels have also been associated with trophoblastic disease and nontrophoblastic neoplasms. The possibility of having these diseases should be considered before a diagnosis of is made. This test is not intended for use as a surrogate marker for aiding in the diagnosis or monitoring the treatment of cancer patients. Siemens Captricity methodology. Lab Order: CBC; SPEC'M 01/02/17 14:13 Test: WHITE BLOOD COUNT; Value: 12.1; Range: 4.0-10.0; Abnormal: Above high normal; Units: K/mm3; Status: F Test: RED BLOOD COUNT; Value: 4.51; Range: 4.00-5.40; Units: M/mm3; Status: F Test: HEMOGLOBIN; Value: 13.9; Range: 12.0-16.0; Units: g/dl; Status: F Test: HEMATOCRIT; Value: 39.1; Range: 36.0-47.0; Units: %; Status: F Test: MEAN CORPUSCULAR VOLUME; Value: 86.9; Range: 80.0-96.0; Units: fl; Status: F Test: MEAN CORPUSCULAR HEMOGLOBIN; Value: 30.8; Range: 27.0-33.0; Units: pg; Status: F Test: MEAN CORPUSCULAR HGB CONC; Value: 35.5; Range: 32.0-36.5; Units: g/dl; Status: F Test: RED CELL DISTRIBUTION WIDTH; Value: 12.9; Range: 11.5-14.5; Units: %; Status: F Test: PLATELET COUNT, AUTOMATED; Value: 277; Range: 150-450; Units: k/mm3; Status: F Outcome: 19:22 Discharge ordered by Provider. le 19:51 Discharge Assessment: Patient awake, alert and oriented x 3. No cognitive and/or ko2 functional deficits noted. Patient verbalized understanding of disposition instructions. patient administered narcotics - no. The following High Risk Discharge criteria are identified: None. Discharged to home ambulatory, with significant other. Condition: stable. Discharge instructions given to patient, Instructed on discharge instructions, follow up and referral plans. medication usage, Demonstrated understanding of instructions, medications, Pt was receptive of discharge instructions/ teaching. Prescriptions given X 2. No special radiology studies were completed. Property sent home with patient. 19:52 Patient left the ED. ko2 Signatures: Kalani Sylvester, RN RN Sobeida Hatch, Kim Mcelroy RN RN hs1 Bebe Swain,RN RN Susie Dorsey Marlynn mm15 Clementina Oneill RN RN ead Ogden, Kari, RN RN ko2 Dolores Muller, MADONNA STUDY ABROAD ADVISOR rs6 MTDD
--- NOTE | 2017-01-02 19:53 | EDDOCDS ---
Physician Documentation [facility] Name: Lynnette Hinojosa Age: 26 yrs Sex: Female : 1990 Arrival Date: 01/02/2017 Time: 13:24 Bed 8 Private MD: Vidhi Welch Disposition: 01/02 19:25 Critical Care: Critical care not applicable. le Disposition: 01/02/17 19:22 Discharged to Home/Self Care. Impression: Mild hyperemesis gravidarum. - Condition is Stable. - Discharge Instructions: First Trimester of , Medicines During , Morning Sickness, [id number], Eating Plan for Hyperemesis Gravidarum, Heartburn During , Ypjw-ff-Khdk. - Prescriptions for Vitamin 27- 0.8 mg Oral Tablet - take 1 tablet by ORAL route once daily; 60 tablet. Phenergan 25 mg Rectal Suppository - insert 1 suppository by RECTAL route every 6 hours As needed; 12 suppository. - Medication Reconciliation, Local Pharmacy Hours form. - Follow up: Brennan Tristan MD; When: Keep your scheduled appointment; Reason: Recheck today's complaints, Continuance of care. - Problem is an ongoing problem. - Symptoms have improved. - Notes: Eat 6 small meals a day and sip on fluids throughout the day Return to the ED for any further concerns Historical: - Allergies: Ibuprofen (Upset stomach); - Home Meds: 1. Zofran (as hydrochloride) 8 mg Oral tab 1 tab every 8 hours - PMHx: Arthritis; Gastric Reflux; - PSHx: right foot surgery; - Social history: Smoking status: No barriers to communication noted, The patient speaks fluent Greek, Speaks appropriately for age. - Family history: Not pertinent. - : The pt / caregiver states he / she is not on anticoagulants. Home medication list is obtained from the patient. - Exposure Risk Screening:: None identified. 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 11 in. (180.34 cm); Pain 7/10; 14:14 BP 118 / 72 Supine; Pulse 74; pml 14:14 BP 113 / 75 Sitting; Pulse 89; pml 14:14 BP 116 / 77 Standing; Pulse 92; pml 15:10 Pulse 78 MON; Pulse Ox 99% ; pml 15:10 BP 109 / 67 (auto/); pml 19:46 BP 110 / 68; Pulse 76; Resp 16; Temp 98.7; Pulse Ox 99% ; Pain 0/10; ko2 13:39 Body Mass Index 19.53 (63.50 kg, 180.34 cm) sew MDM: 14:02 Orthostatic VS ordered. le 14:02 IV Saline Lock ordered. le 14:02 NS 0.9% 1000 ml IV at bolus once ordered. le 14:02 Metoclopramide 10 mg IV at 40 mg/hr once over 15 mins ordered. le 14:03 Hcg, Serum Quantitative Ordered. EDMS 14:03 CBC Ordered. EDMS 14:30 CBC Reviewed. le 15:17 Financial registration complete. mm15 15:18 [facility] Payment Agreement was scanned into [employer] and attached to record. mm15 15:49 Hcg, Serum Quantitative Reviewed. le 16:24 Promethazine 25 mg IVP once; dilute and administer 30-60 minutes ordered. le 16:26 REGULAR+DIET ordered. EDMS Administered Medications: 14:14 Drug: NS 0.9% 1000 ml [sodium chloride 0.9 % intravenous solution] Route: IV; Rate: ead bolus; Site: right antecubital; 15:15 Follow up: IV Status: Completed infusion; IV Intake: 1000ml pml 14:14 Drug: Metoclopramide 10 mg [metoclopramide 5 mg/mL injection solution] Route: IV; Rate: ead 40 mg/hr; Infused Over: 15 mins; Site: right antecubital; 16:34 Drug: Promethazine 25 mg [promethazine 25 mg/mL injection solution (1 mL)] Route: IVP; pml Site: right antecubital; Signatures: Dispatcher [employer] EDMS Sobeida Hong, Bebe Morris RN RN pml Alex Francisco mm15 Digna Resendiz RN RN ko2 Clementina Oneill RN The chart was reviewed and I authenticate all verbal orders and agree with the evaluation and treatment provided.Attachments: 15:18 [facility] Payment Agreement mm15 MTDD
--- NOTE | 2017-01-04 20:53 | EDDOCDS ---
Physician Documentation [facility] Name: Lynnette Hinojosa Age: 26 yrs Sex: Female : 1990 Arrival Date: 01/02/2017 Time: 13:24 Bed 8 Private MD: Vidhi Welch Disposition: 01/02 19:25 Critical Care: Critical care not applicable. le Disposition: 01/02/17 19:22 Discharged to Home/Self Care. Impression: Mild hyperemesis gravidarum. - Condition is Stable. - Discharge Instructions: First Trimester of , Medicines During , Morning Sickness, Jxlr-[id number], Eating Plan for Hyperemesis Gravidarum, Heartburn During , Obna-ds-Aeqf. - Prescriptions for Vitamin 27- 0.8 mg Oral Tablet - take 1 tablet by ORAL route once daily; 60 tablet. Phenergan 25 mg Rectal Suppository - insert 1 suppository by RECTAL route every 6 hours As needed; 12 suppository. - Medication Reconciliation, Local Pharmacy Hours form. - Follow up: Brennan Tristan MD; When: Keep your scheduled appointment; Reason: Recheck today's complaints, Continuance of care. - Problem is an ongoing problem. - Symptoms have improved. - Notes: Eat 6 small meals a day and sip on fluids throughout the day Return to the ED for any further concerns Historical: - Allergies: Ibuprofen (Upset stomach); - Home Meds: 1. Zofran (as hydrochloride) 8 mg Oral tab 1 tab every 8 hours - PMHx: Arthritis; Gastric Reflux; - PSHx: right foot surgery; - Social history: Smoking status: No barriers to communication noted, The patient speaks fluent Irish, Speaks appropriately for age. - Family history: Not pertinent. - : The pt / caregiver states he / she is not on anticoagulants. Home medication list is obtained from the patient. - Exposure Risk Screening:: None identified. 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 11 in. (180.34 cm); Pain 7/10; 14:14 BP 118 / 72 Supine; Pulse 74; pml 14:14 BP 113 / 75 Sitting; Pulse 89; pml 14:14 BP 116 / 77 Standing; Pulse 92; pml 15:10 Pulse 78 MON; Pulse Ox 99% ; pml 15:10 BP 109 / 67 (auto/); pml 19:46 BP 110 / 68; Pulse 76; Resp 16; Temp 98.7; Pulse Ox 99% ; Pain 0/10; ko2 13:39 Body Mass Index 19.53 (63.50 kg, 180.34 cm) sew MDM: 14:02 Orthostatic VS ordered. le 14:02 IV Saline Lock ordered. le 14:02 NS 0.9% 1000 ml IV at bolus once ordered. le 14:02 Metoclopramide 10 mg IV at 40 mg/hr once over 15 mins ordered. le 14:03 Hcg, Serum Quantitative Ordered. EDMS 14:03 CBC Ordered. EDMS 14:30 CBC Reviewed. le 15:17 Financial registration complete. mm15 15:18 [facility] Payment Agreement was scanned into [email or web address] and attached to record. mm15 15:49 Hcg, Serum Quantitative Reviewed. le 16:24 Promethazine 25 mg IVP once; dilute and administer 30-60 minutes ordered. le 16:26 REGULAR+DIET ordered. EDMS 01/03 10:29 [facility] Payment Agreement was scanned into [email or web address] and attached to record. mm15 Administered Medications: 01/02 14:14 Drug: NS 0.9% 1000 ml [sodium chloride 0.9 % intravenous solution] Route: IV; Rate: ead bolus; Site: right antecubital; 15:15 Follow up: IV Status: Completed infusion; IV Intake: 1000ml pml 14:14 Drug: Metoclopramide 10 mg [metoclopramide 5 mg/mL injection solution] Route: IV; Rate: ead 40 mg/hr; Infused Over: 15 mins; Site: right antecubital; 16:34 Drug: Promethazine 25 mg [promethazine 25 mg/mL injection solution (1 mL)] Route: IVP; pml Site: right antecubital; Signatures: Dispatcher [employer] [place] EDMS Sobeida Hong, SEB SAND MILL GRINDER Bebe Umana RN RN pml McGrath, Marlynn mm15 Digna Resendiz,RN RN koClementina Mina RN The chart was reviewed and I authenticate all verbal orders and agree with the evaluation and treatment provided.Attachments: 15:18 [facility] Payment Agreement mm15 01/03 10:29 [facility] Payment Agreement mm15 Chart Complete YOBANY
--- NOTE | 2017-01-04 20:53 | EDDOCDS ---
Physician Documentation [facility] Name: Lynnette Hinojosa Age: 26 yrs Sex: Female : 1990 Arrival Date: 01/02/2017 Time: 13:24 Bed 8 Private MD: Vidhi Welch Disposition: 01/02 19:25 Critical Care: Critical care not applicable. le Disposition: 01/02/17 19:22 Discharged to Home/Self Care. Impression: Mild hyperemesis gravidarum. - Condition is Stable. - Discharge Instructions: First Trimester of , Medicines During , Morning Sickness, Tcbn-at-Prwe, Eating Plan for Hyperemesis Gravidarum, Heartburn During , Xlon-pl-Ysnf. - Prescriptions for Vitamin 27- 0.8 mg Oral Tablet - take 1 tablet by ORAL route once daily; 60 tablet. Phenergan 25 mg Rectal Suppository - insert 1 suppository by RECTAL route every 6 hours As needed; 12 suppository. - Medication Reconciliation, Local Pharmacy Hours form. - Follow up: Brennan Tristan MD; When: Keep your scheduled appointment; Reason: Recheck today's complaints, Continuance of care. - Problem is an ongoing problem. - Symptoms have improved. - Notes: Eat 6 small meals a day and sip on fluids throughout the day Return to the ED for any further concerns Historical: - Allergies: Ibuprofen (Upset stomach); - Home Meds: 1. Zofran (as hydrochloride) 8 mg Oral tab 1 tab every 8 hours - PMHx: Arthritis; Gastric Reflux; - PSHx: right foot surgery; - Social history: Smoking status: No barriers to communication noted, The patient speaks fluent Slovenian, Speaks appropriately for age. - Family history: Not pertinent. - : The pt / caregiver states he / she is not on anticoagulants. Home medication list is obtained from the patient. - Exposure Risk Screening:: None identified. 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 11 in. (180.34 cm); Pain 7/10; 14:14 BP 118 / 72 Supine; Pulse 74; pml 14:14 BP 113 / 75 Sitting; Pulse 89; pml 14:14 BP 116 / 77 Standing; Pulse 92; pml 15:10 Pulse 78 MON; Pulse Ox 99% ; pml 15:10 BP 109 / 67 (auto/); pml 19:46 BP 110 / 68; Pulse 76; Resp 16; Temp 98.7; Pulse Ox 99% ; Pain 0/10; ko2 13:39 Body Mass Index 19.53 (63.50 kg, 180.34 cm) sew MDM: 14:02 Orthostatic VS ordered. le 14:02 IV Saline Lock ordered. le 14:02 NS 0.9% 1000 ml IV at bolus once ordered. le 14:02 Metoclopramide 10 mg IV at 40 mg/hr once over 15 mins ordered. le 14:03 Hcg, Serum Quantitative Ordered. EDMS 14:03 CBC Ordered. EDMS 14:30 CBC Reviewed. le 15:17 Financial registration complete. mm15 15:18 [facility] Payment Agreement was scanned into [employer] and attached to record. mm15 15:49 Hcg, Serum Quantitative Reviewed. le 16:24 Promethazine 25 mg IVP once; dilute and administer 30-60 minutes ordered. le 16:26 REGULAR+DIET ordered. EDMS 01/03 10:29 [facility] Payment Agreement was scanned into [employer] and attached to record. mm15 Administered Medications: 01/02 14:14 Drug: NS 0.9% 1000 ml [sodium chloride 0.9 % intravenous solution] Route: IV; Rate: ead bolus; Site: right antecubital; 15:15 Follow up: IV Status: Completed infusion; IV Intake: 1000ml pml 14:14 Drug: Metoclopramide 10 mg [metoclopramide 5 mg/mL injection solution] Route: IV; Rate: ead 40 mg/hr; Infused Over: 15 mins; Site: right antecubital; 16:34 Drug: Promethazine 25 mg [promethazine 25 mg/mL injection solution (1 mL)] Route: IVP; pml Site: right antecubital; Signatures: Dispatcher [employer] EDMS Sobeida Hong, SEB DIVISION PLANT ENGINEER Bebe Umana RN RN pml McGrath, Marlynn mm15 Digna Resendiz,RN RN koClementina Mina RN The chart was reviewed and I authenticate all verbal orders and agree with the evaluation and treatment provided.Attachments: 15:18 [facility] Payment Agreement mm15 01/03 10:29 [facility] Payment Agreement mm15 Chart Complete YOBANY
--- NOTE | 2017-01-04 20:54 | EDDOCDS ---
Nurse's Notes [facility] Name: Lynnette Hinojosa Age: 26 yrs Sex: Female : 1990 Arrival Date: 01/02/2017 Time: 13:24 Bed 8 Private MD: Vidhi Welch Diagnosis: Mild hyperemesis gravidarum Presentation: 01/02 13:28 Presenting complaint: Patient states: 7 weeks and nausea and vomiting slight pml lower abdominal pain. took zofran at 0800 this AM. Risk factors: the patient reports no vaginal bleeding. Adult Sepsis Screening: The patient does not have new or worsening altered mentation. Patient's respiratory rate is less than 22. Systolic blood pressure is greater than 100. Patient has a qSOFA score of 0- Negative Sepsis Screen. Suicide/Homicide risk assessment- the patient denies having any suicidal and/or homicidal ideations and does not present with any other emotional, behavioral or mental health complaints. 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 Transition of care: patient was not received from another setting of care. 13:28 Acuity: JULIO CESAR Level 3 pml 13:28 Method Of Arrival: Ambulance pml Triage Assessment: 13:44 General: Appears in no apparent distress, comfortable, Behavior is appropriate for age, pml cooperative. Pain: Location: suprapubic area Pain currently is 7 out of 10 on a pain scale. Quality of pain is described as crampy. HIV screening NA for this visit Offered previously. The patient is triaged at the bedside. See Assessment in Nurses Notes section of ED record. Neurological: Level of Consciousness is awake, alert, Oriented to person, place, time. Cardiovascular: Capillary refill < 3 seconds. Respiratory: Airway is patent Respiratory effort is even, unlabored. GI: Abdomen is non- distended. Derm: Skin is pink, warm & dry. 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 Zofran (as hydrochloride) 8 mg Oral tab 1 tab every 8 hours - PMHx: Arthritis; Gastric Reflux; - PSHx: right foot surgery; - Social history: Smoking status: No barriers to communication noted, The patient speaks fluent Latvian, Speaks appropriately for age. - Family history: Not pertinent. - : The pt / caregiver states he / she is not on anticoagulants. Home medication list is obtained from the patient. - Exposure Risk Screening:: None identified. Screenin:50 Screening information is obtained from the patient. Fall risk: No risks identified. ko2 Assistance ADL's: requires no assistance with activities of daily living. Abuse/DV Screen: The patient / caregiver reports he/she is: not in a situation that causes fear, pain or injury. Nutritional screening: No deficits noted. Advance Directives: Currently, there is no health care proxy. There is no active DNR order. There is no living will. There is no Power of Clinical Academic Allergist. home support is adequate. Assessment: 13:45 General: see triage note. pml 14:14 General: Appears in no apparent distress, Behavior is appropriate for age, cooperative. pml Pain: Location: suprapubic area. Neurological: Level of Consciousness is awake, alert, Oriented to person, place, time. Cardiovascular: Capillary refill < 3 seconds. GI: Abdomen is non- distended Bowel sounds present X 4 quads. Abd is soft X 4 quads Abd is tender to palpation in suprapubic area, right lower quadrant and left lower quadrant. Derm: Skin is pink, warm & dry. 15:15 General: reports continued abdominal discomfort and vomiting small amounts of yellow pml colored emesis.. 15:53 General: tolerating small sips of PO fluids. pml 16:34 General: pt vomited small amount of liquid emesis. . pml 17:27 General: Appears in no apparent distress, to be sleeping. Neurological: Level of pml Consciousness is awake, alert, Oriented to person, place, time. Cardiovascular: Capillary refill < 3 seconds. Respiratory: Airway is patent Respiratory effort is even, unlabored. Derm: Skin is pink, warm & dry. 18:12 Reassessment: Patient states feeling better. Patient states symptoms have improved. pml General: diet tray provided,. encouraged to take start slowly with more bland options provided. 19:49 General: Appears in no apparent distress, comfortable, Behavior is appropriate for age, ko2 cooperative. Pain: Denies pain. Neurological: Level of Consciousness is awake, alert, Oriented to person, place, time. Respiratory: Airway is patent Respiratory effort is even, unlabored. Derm: Skin is pink, warm & dry. Vital Signs: 13:39 BP 123 / 80; Pulse 83; Resp 16; Temp 98.9(O); Pulse Ox 98% on R/A; Weight 63.5 kg; sew Height 5 ft. 11 in. (180.34 cm); Pain 7/10; 14:14 BP 118 / 72 Supine; Pulse 74; pml 14:14 BP 113 / 75 Sitting; Pulse 89; pml 14:14 BP 116 / 77 Standing; Pulse 92; pml 15:10 Pulse 78 MON; Pulse Ox 99% ; pml 15:10 BP 109 / 67 (auto/); pml 19:46 BP 110 / 68; Pulse 76; Resp 16; Temp 98.7; Pulse Ox 99% ; Pain 0/10; ko2 13:39 Body Mass Index 19.53 (63.50 kg, 180.34 cm) [facility] [place] Vitals: 13:39 Log In Time N/A - ambulance arrival. [facility] ED Course: 13:25 Patient visited by Dolores Muller PCA. rs6 13:25 Patient moved to Waiting rs6 13:26 Vidhi Welch RPA-C is Private Physician. rs6 13:28 Nubia Zaldivar,RN is Primary Nurse. hs1 13:28 Bebe Swain,BESSY is Primary Nurse. hs1 13:28 Patient moved to 8 hs1 13:31 Triage Initiated pml 13:38 [facility] le 13:40 Patient visited by Susie Singh. sew 13:45 Patient visited by Bebe Swain,BESSY. pml 14:05 Patient visited by Sobeida Hong FNP. le 14:05 Patient visited by Sobeida Hong FNP. le 14:14 CBC Sent. ead 14:14 Hcg, Serum Quantitative Sent. ead 14:15 Inserted peripheral IV: 20gauge IV in right antecubital area and blood collected. pml Patient tolerated the procedure well. 14:16 Patient visited by Bebe Swain,BESSY. pml 15:16 Patient visited by Bebe Swain,BESSY. pml 15:18 [facility] Payment Agreement was scanned into [employer] and attached to record. mm15 15:53 Patient visited by Bebe Swain,BESSY. pml 16:35 Patient visited by Bebe Swain RN. pml 17:27 Patient visited by Bebe Swain RN. pml 18:12 Patient visited by Bebe Swain RN. pml 19:02 Digna Resendiz,BESSY is Primary Nurse. ko2 19:13 Patient visited by Digna Resendiz RN. ko2 19:22 Brennan Tristan MD is Referral Physician. le 19:31 Primary Nurse role handed off by Bebe Swain RN mcp 19:51 The patient / caregiver is instructed regarding the plan of care and ED course. ko2 19:51 Discontinued lock intact, bleeding controlled, pressure dressing applied, No ko2 redness/swelling at site. No procedures done that require assistance. 01/03 10:29 [facility] Payment Agreement was scanned into [employer] and attached to record. mm15 Administered Medications: 01/02 14:14 Drug: NS 0.9% 1000 ml [sodium chloride 0.9 % intravenous solution] Route: IV; Rate: ead bolus; Site: right antecubital; 15:15 Follow up: IV Status: Completed infusion; IV Intake: 1000ml pml 14:14 Drug: Metoclopramide 10 mg [metoclopramide 5 mg/mL injection solution] Route: IV; Rate: ead 40 mg/hr; Infused Over: 15 mins; Site: right antecubital; 16:34 Drug: Promethazine 25 mg [promethazine 25 mg/mL injection solution (1 mL)] Route: IVP; pml Site: right antecubital; Intake: 15:15 IV: 1000.00ml; Total: 1000.00ml. pml Order Results: Lab Order: Hcg, Serum Quantitative; SPEC'M 01/02/17 14:13 Test: HCG, SERUM QUANTITATIVE; Value: [id number]; Units: MIU/ML; Status: F Test Note: ; GESTATIONAL AGE APPROXIMATE HCG RANGE (MIU/ML) 0.2-1 WEEK 5-50 1-2 WEEKS 50-500 2-3 WEEKS 100-5,000 3-4 WEEKS 500-10,000 4-5 WEEKS 1,000-50,000 5-6 WEEKS 10,000-100,000 6-8 WEEKS 15,000-200,000 2-3 MONTHS 10,000-100,000 NON FEMALES LESS THAN 3.0 Patient samples may contain human heterophilic antibodies that could react with immunoassays to give falsely elevated or depressed results. This assay has been designed to minimize interference from heterophilic antibodies. Elevated hCG levels have also been associated with trophoblastic disease and nontrophoblastic neoplasms. The possibility of having these diseases should be considered before a diagnosis of is made. This test is not intended for use as a surrogate marker for aiding in the diagnosis or monitoring the treatment of cancer patients. [employer] methodology. Lab Order: CBC; SPEC'M 01/02/17 14:13 Test: WHITE BLOOD COUNT; Value: 12.1; Range: 4.0-10.0; Abnormal: Above high normal; Units: K/mm3; Status: F Test: RED BLOOD COUNT; Value: 4.51; Range: 4.00-5.40; Units: M/mm3; Status: F Test: HEMOGLOBIN; Value: 13.9; Range: 12.0-16.0; Units: g/dl; Status: F Test: HEMATOCRIT; Value: 39.1; Range: 36.0-47.0; Units: %; Status: F Test: MEAN CORPUSCULAR VOLUME; Value: 86.9; Range: 80.0-96.0; Units: fl; Status: F Test: MEAN CORPUSCULAR HEMOGLOBIN; Value: 30.8; Range: 27.0-33.0; Units: pg; Status: F Test: MEAN CORPUSCULAR HGB CONC; Value: 35.5; Range: 32.0-36.5; Units: g/dl; Status: F Test: RED CELL DISTRIBUTION WIDTH; Value: 12.9; Range: 11.5-14.5; Units: %; Status: F Test: PLATELET COUNT, AUTOMATED; Value: 277; Range: 150-450; Units: k/mm3; Status: F Outcome: 19:22 Discharge ordered by Provider. silas 19:51 Discharge Assessment: Patient awake, alert and oriented x 3. No cognitive and/or ko2 functional deficits noted. Patient verbalized understanding of disposition instructions. patient administered narcotics - no. The following High Risk Discharge criteria are identified: None. Discharged to home ambulatory, with significant other. Condition: stable. Discharge instructions given to patient, Instructed on discharge instructions, follow up and referral plans. medication usage, Demonstrated understanding of instructions, medications, Pt was receptive of discharge instructions/ teaching. Prescriptions given X 2. No special radiology studies were completed. Property sent home with patient. 19:52 Patient left the ED. ko2 Signatures: Kalani Sylvester, RN RN Sobeida Hatch, CARPET SEWER Kim Salmon RN RN hs1 Bebe SwainRN RN Susie Dorsey Marlynn mm15 Clementina OneillRN RN Digna Billy RN RN ko2 Dolores Muller, [place] ADMINISTRATOR rs6 Chart Complete MTDD
== END 2017-01-02 19:52 | disposition home or self-care (01) ==
LOC: M ED 13:24
DX: O21.0 Mild hyperemesis gravidarum (principal); Z3A.01 Less than 8 weeks gestation of pregnancy; O26.891 Other specified pregnancy related conditions, first trimester; O99.611 Diseases of the digestive system complicating pregnancy, first trimester; Z79.899 Other long term (current) drug therapy

== ENCOUNTER → 2017-01-05 | Outpatient (REF) | payer OTHER ==
[2017-01-05 19:00] LABS: BASO % 0.4 % (0.0-1.0); EOS # 0.1 K/mm3 (0.0-0.50); EOS % 1.2 % (0.0-3.0); LARGE UNSTAINED CELL # 0.1 K/mm3 (0.0-0.4); LARGE UNSTAINED CELL % 1.4 % (0.0-4.0); LYMPH # 1.7 K/mm3 (1.5-6.5); LYMPH % 18.1 % (24.0-44.0); MEAN CORPUSCULAR HEMOGLOBIN 29.4 pg (27.0-33.0); MEAN CORPUSCULAR HGB CONC 32.9 g/dl (32.0-36.5); MEAN CORPUSCULAR VOLUME 89.4 fl (80.0-96.0); MONO # 0.4 K/mm3 (0.0-0.8); MONO % 4.8 % (0.0-5.0); NEUTROPHILS # 6.8 K/mm3 (1.8-7.7); NEUTROPHILS % 74.1 % (36.0-66.0); PLATELET COUNT, AUTOMATED 209 k/mm3 (150-450); RED CELL DISTRIBUTION WIDTH 13.1 % (11.5-14.5); WHITE BLOOD COUNT 9.1 K/mm3 (4.0-10.0)
[2017-01-06 08:43] LABS: HIV SCRN NEGATIVE (NEGATIVE); HIV SCRN1 NEGATIVE (NEGATIVE)
[2017-01-06 08:44] LABS: CONTROL LINE INT CTR LINE PRESENT
[2017-01-07 11:04] LABS: HBsAg Prenatal NEGATIVE (NEGATIVE)
== END ==
LOC: M LABSMT 17:22
PROVIDERS: ATTEND Obstetrics & Gynecology
DX: Z36 Encounter for antenatal screening of mother (principal)

== ENCOUNTER 2017-01-10 17:36 | Emergency (ER) | payer OTHER ==
[2017-01-10] MEDS ORDERED: ONDANSETRON 4MG/2ML VIAL (J2405) As Ordered ONE (18:35)
[2017-01-10 18:39] LABS: BASO % 0.5 % (0.0-1.0); EOS # 0.1 K/mm3 (0.0-0.50); EOS % 1.3 % (0.0-3.0); LARGE UNSTAINED CELL # 0.1 K/mm3 (0.0-0.4); LARGE UNSTAINED CELL % 1.3 % (0.0-4.0); LYMPH # 1.6 K/mm3 (1.5-6.5); LYMPH % 18.5 % (24.0-44.0); MEAN CORPUSCULAR HEMOGLOBIN 30.2 pg (27.0-33.0); MEAN CORPUSCULAR HGB CONC 34.1 g/dl (32.0-36.5); MEAN CORPUSCULAR VOLUME 88.7 fl (80.0-96.0); MONO # 0.4 K/mm3 (0.0-0.8); MONO % 4.6 % (0.0-5.0); NEUTROPHILS # 6.3 K/mm3 (1.8-7.7); NEUTROPHILS % 73.8 % (36.0-66.0); PLATELET COUNT, AUTOMATED 226 k/mm3 (150-450); RED CELL DISTRIBUTION WIDTH 12.8 % (11.5-14.5); WHITE BLOOD COUNT 8.6 K/mm3 (4.0-10.0)
[2017-01-10 19:18] LABS: ANION GAP 9 MEQ/L (8-16); BLOOD UREA NITROGEN 6 MG/DL (7-18); CALCIUM LEVEL 8.5 MG/DL (8.5-10.1); CARBON DIOXIDE LEVEL 25 MEQ/L (21-32); CHLORIDE LEVEL 102 MEQ/L (98-107); CREATININE FOR GFR 0.63 MG/DL (0.55-1.02); GLOMERULAR FILTRATION RATE > 60.0 (>60); GLUCOSE, FASTING 75 MG/DL (70-105); POTASSIUM SERUM 3.7 MEQ/L (3.5-5.1); SODIUM LEVEL 136 MEQ/L (136-145)
[2017-01-10 19:50] LABS: HCG, SERUM QUANTITATIVE 215300 MIU/ML
--- NOTE | 2017-01-10 20:10 | REPUSA ---
CLINICAL HISTORY: . TECHNIQUE: Realtime sonographic images were obtained in multiple projections. COMMENTS: A single, living, intrauterine was identified utilizing transabdominal imaging technique. The estimated gestational age is 8 weeks 2 days, based on a pole measurement of 18 mm. The fet al heart rate was documented at 180 bpm. No subchorionic hemorrhage was identified. Evaluation of the maternal adnexal and cul-de-sac regions revealed 2 right ovarian cysts, likely a co rpus luteum. Based on today's examination, the estimated date of delivery is 08/18/2017. Although a complete anatomical survey is not possible at this gestational age, no gross anomali es were identified. A repeat scan at 19-20 weeks for a detailed anatomical survey is recommended. IMPRESSION: Single live IUP dated at 8 w 2 days. Thank you for your kind referral of this patient. We appreciate the opportunity to participate in thi s patient's care.
--- NOTE | 2017-01-10 22:46 | EDDOCDS ---
Physician Documentation [facility] Name: Lynnette Hinojosa Age: 26 yrs Sex: Female : 1990 Arrival Date: 01/10/2017 Time: 17:36 Bed I2 / M2 Private MD: Brennan Jon P. Disposition: 01/10/17 22:30 Discharged to Home/Self Care. Impression: Threatened , Vomiting of , unspecified. - Condition is Stable. - Discharge Instructions: Hyperemesis Gravidarum, Threatened Miscarriage, Pelvic Rest. - Prescriptions for Diclegis 10- 10 mg - take 2 tablet by ORAL route every 6-8 hours; 30 tablet. - Medication Reconciliation, Local Pharmacy Hours form. - Follow up: Brennan Jon; When: 1 - 2 days; Reason: Recheck today's complaints, Continuance of care. - Problem is new. - Symptoms have improved. - Notes: PLEASE FOLLOW UP WITH DR JON IN 2 DAYS, RETURN TO THE ER IF THE SYMPTOMS WORSEN OR BECOME CONCERNING Historical: - Allergies: Ibuprofen (Upset stomach); - Home Meds: 1. Phenergan 25 mg Rectal supp 1 suppository every 6 hours - PMHx: Arthritis; Gastric Reflux; - PSHx: right foot surgery; - Social history: Smoking status: Patient states was never smoker of tobacco. No barriers to communication noted, The patient speaks fluent Frisian, Speaks appropriately for age. - Family history: Not pertinent. - : The pt / caregiver states he / she is not on anticoagulants. Home medication list is obtained from the patient. - Exposure Risk Screening:: None identified. 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 1 in. (154.94 cm); Pain 9/10; 21:59 BP 121 / 75; Pulse 66; Resp 18; Temp 98.9(O); Pulse Ox 97% on R/A; Pain 2/10; jmb 22:43 BP 117 / 73; Pulse 67; Resp 18; Temp 98.6; Pulse Ox 98% ; Pain 0/10; ajs 17:37 Body Mass Index 28.34 (68.04 kg, 154.94 cm) dem1 MDM: 18:03 Financial registration complete. [id number] 18:14 IV Saline Lock ordered. ck7 18:14 NS 0.9% 1000 ml IV at bolus once ordered. ck7 18:14 Ondansetron 4 mg IVP once ordered. ck7 18:14 Set up pelvic ordered. ck7 18:14 CBC with Diff Ordered. EDMS 18:14 MED Profile Ordered. EDMS 18:15 UA Ordered. EDMS 18:15 Urine Culture Ordered. EDMS 18:15 Hcg, Serum Quantitative Ordered. EDMS 18:15 Type & Screen Ordered. EDMS 18:15 GC & Chlamydia Amplification Ordered. EDMS 18:15 Wet Prep Ordered. EDMS 18:15 US 1st trimester Ordered. EDMS 18:38 [facility] Payment Agreement was scanned into [employer] and attached to record. ks16 18:51 CBC with Diff Reviewed. ck7 18:51 UA Reviewed. ck7 19:52 Type & Screen Reviewed. ck7 20:24 MED Profile Reviewed. ck7 20:24 Hcg, Serum Quantitative Reviewed. ck7 20:24 Wet Prep Reviewed. ck7 20:48 US 1st trimester Reviewed. ck7 20:55 -RhoGAM Ultra-Filtered Plus 300 mcg IM once ordered. ck7 20:56 Draw Rhogam Ordered. EDMS Administered Medications: 18:46 Drug: NS 0.9% 1000 ml [sodium chloride 0.9 % intravenous solution] Route: IV; Rate: jmb bolus; Site: right antecubital; 18:46 Drug: Ondansetron 4 mg [ondansetron HCl 2 mg/mL intravenous solution (2 mL)] Route: jmb IVP; Site: right antecubital; 21:59 Drug: -RhoGAM Ultra-Filtered Plus 300 mcg [RhoGAM Ultra-Filtered PLUS 1,500 unit (300 jmb mcg) intramuscular syringe (300 mcg)] Route: IM; Site: right gluteus; Signatures: Dispatcher [employer] EDMS Kalani Sylvester RN Duc Rajan mcp, RN RN mlb1 Jaspreet Santacruz, RPA-C [id number] Jagdish Prado RN RN jmb Sorenson, Kimberly, Reg Reg [email or web address] The chart was reviewed and I authenticate all verbal orders and agree with the evaluation and treatment provided.Attachments: 18:38 [facility] Payment Agreement [email or web address] MTDD
--- NOTE | 2017-01-10 22:46 | EDDOCDS ---
Nurse's Notes [facility] Name: Lynnette Hinojosa Age: 26 yrs Sex: Female : 1990 Arrival Date: 01/10/2017 Time: 17:36 Bed I2 / M2 Private MD: Brennan Tristan P. Diagnosis: Threatened ;Vomiting of , unspecified Presentation: 01/10 17:41 Presenting complaint: Patient states: 8 weeks , nausea states cramping and mlb1 spotty vaginal bleeding began today. Risk factors: The patient reports no loss of conciousness prior to arrival. This patient has not had a hysterectomy. This patient has not begun menopause. Adult Sepsis Screening: The patient does not have new or worsening altered mentation. Patient's respiratory rate is less than 22. Systolic blood pressure is greater than 100. Patient has a qSOFA score of 0- Negative Sepsis Screen. Suicide/Homicide risk assessment- the patient denies having any suicidal and/or homicidal ideations and does not present with any other emotional, behavioral or mental health complaints. Status: Patient is not a emergency service worker or dependent. Transition of care: patient was not received from another setting of care. 17:41 Acuity: JULIO CESAR Level 3 mlb1 17:41 Method Of Arrival: Walkin/Carried/Asstd mlb1 Triage Assessment: 17:44 General: Appears in no apparent distress, Behavior is anxious, cooperative. Pain: mlb1 Location: pelvis Pain currently is 8 out of 10 on a pain scale. Quality of pain is described as crampy. HIV screening NA for this visit Offered previously. : Reports vaginal bleeding that is spotty. 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 Phenergan 25 mg Rectal supp 1 suppository every 6 hours - PMHx: Arthritis; Gastric Reflux; - PSHx: right foot surgery; - Social history: Smoking status: Patient states was never smoker of tobacco. No barriers to communication noted, The patient speaks fluent Egyptian, Speaks appropriately for age. - Family history: Not pertinent. - : The pt / caregiver states he / she is not on anticoagulants. Home medication list is obtained from the patient. - Exposure Risk Screening:: None identified. Screenin:29 Screening information is obtained from the patient. Fall risk: No risks identified. jmb Assistance ADL's: requires no assistance with activities of daily living. Abuse/DV Screen: The patient / caregiver reports he/she is: not in a situation that causes fear, pain or injury. Nutritional screening: No deficits noted. home support is adequate. 22:45 Advance Directives: There is no active DNR order. mcp Assessment: 18:29 General: Appears in no apparent distress, Behavior is appropriate for age, cooperative. jmb Pain: Location: pelvis Pain currently is 6 out of 10 on a pain scale. 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 Cardiovascular: Capillary refill < 3 seconds Heart tones S1 S2 present Pulses are all present. Rhythm is regular. Respiratory: Airway is patent Respiratory effort is even, unlabored, Respiratory pattern is regular, symmetrical, Breath sounds are clear bilaterally. GI: Abdomen is non- distended Bowel sounds present X 4 quads. Abd is soft X 4 quads. : Patient reports bleeding. Derm: Skin is pink, warm & dry. Musculoskeletal: Range of motion intact in all extremities. 19:05 General: Appears in no apparent distress, comfortable, Behavior is appropriate for age, jmb cooperative, Patient laying on stretcher, appears comfortable. Patient voices no complaints at this time. Family at bedside. . Neurological: Level of Consciousness is awake, alert, obeys commands, Oriented to person, place, time. Respiratory: Airway is patent Respiratory effort is even, unlabored, Respiratory pattern is regular, symmetrical. 19:44 General: Appears in no apparent distress, comfortable, Behavior is appropriate for age, jmb cooperative. Neurological: Level of Consciousness is awake, alert, obeys commands, Oriented to person, place, time. Respiratory: Airway is patent Respiratory effort is even, unlabored, Respiratory pattern is regular, symmetrical. 21:36 General: Appears in no apparent distress, comfortable, Behavior is appropriate for age, jmb cooperative, Patient up to bathroom. Patient voices no concerns at this time. Laying on stretcher with significant other at bedside. . Neurological: Level of Consciousness is awake, alert, obeys commands, Oriented to person, place, time. Respiratory: Airway is patent Respiratory effort is even, unlabored, Respiratory pattern is regular, symmetrical. Vital Signs: 17:37 BP 121 / 79; Pulse 84; Resp 16; Temp 98.0(O); Pulse Ox 100% on R/A; Weight 68.04 kg; dem1 Height 5 ft. 1 in. (154.94 cm); Pain 9/10; 21:59 BP 121 / 75; Pulse 66; Resp 18; Temp 98.9(O); Pulse Ox 97% on R/A; Pain 2/10; jmb 22:43 BP 117 / 73; Pulse 67; Resp 18; Temp 98.6; Pulse Ox 98% ; Pain 0/10; ajs 17:37 Body Mass Index 28.34 (68.04 kg, 154.94 cm) [facility] Vitals: 17:37 Log In Time: January 10, 2017 at 17:35. [facility] ED Course: 17:37 Patient visited by Gianni Martins. dem1 17:37 Brennan Tristan is Private Physician. dem1 17:37 Patient moved to Waiting dem1 17:38 Patient moved to Pre RCE dem1 17:41 Patient visited by Duc Rossi, RN. mlb1 17:42 Triage Initiated mlb1 17:44 Patient visited by Duc Rossi, RN. mlb1 17:44 Patient moved to Triage 1 mlb1 17:59 [facility] ck7 17:59 Quintin Gonzalez MD is Attending Physician. ck7 17:59 Patient visited by Jaspreet Santacruz RPA-C. ck7 18:18 Patient moved to I3 / M3 ck1 18:22 Urine Culture Sent. jp4 18:22 UA Sent. jp4 18:25 Patient moved to I2 / M2 jm 18:29 The patient / caregiver is instructed regarding the plan of care and ED course. bhavani 18:29 Type & Screen Sent. bhavani 18:29 Hcg, Serum Quantitative Sent. johnnieb 18:29 MED Profile Sent. bhavani 18:29 CBC with Diff Sent. bhavani 18:29 Inserted saline lock: 20 gauge in right antecubital area and blood collected. The [facility] patient tolerated the procedure well. Labs drawn. (by ED staff). Sent per order to lab. 18:32 Patient visited by Jagdish Prado RN. jmb 18:38 [facility] Payment Agreement was scanned into [employer] and attached to record. ks16 19:06 Patient visited by Jagdish Prado RN. jmb 19:44 Patient visited by Jagdish Prado RN. jmb 20:14 Patient visited by Kalani Sylvester RN. mcp 20:14 Wet Prep Sent. mcp 20:14 GC & Chlamydia Amplification Sent. mcp 20:14 Assist provider with pelvic exam: Set up pelvic tray. Specimens sent to lab. Performed mcp by Jaspreet SINGH Patient tolerated well. 20:29 US 1st trimester Returned. EDMS 20:48 Patient visited by Jaspreet Santacruz RPA-C. ck7 20:57 Draw Rhogam Sent. mcp 21:37 Patient visited by Jagdish Prado RN. jmb 22:07 Patient visited by Jaspreet Santacruz RPA-C. ck7 22:30 Brennan Tristan is Referral Physician. ck7 22:43 Patient visited by Lynnette Erwin. ajs 22:44 Discontinued lock intact, bleeding controlled, pressure dressing applied, No mcp redness/swelling at site. Administered Medications: 18:46 Drug: NS 0.9% 1000 ml [sodium chloride 0.9 % intravenous solution] Route: IV; Rate: jmb bolus; Site: right antecubital; 18:46 Drug: Ondansetron 4 mg [ondansetron HCl 2 mg/mL intravenous solution (2 mL)] Route: jmb IVP; Site: right antecubital; 21:59 Drug: -RhoGAM Ultra-Filtered Plus 300 mcg [RhoGAM Ultra-Filtered PLUS 1,500 unit (300 jmb mcg) intramuscular syringe (300 mcg)] Route: IM; Site: right gluteus; Order Results: Lab Order: CBC with Diff; SPEC'M 01/10/17 18:26 Test: WHITE BLOOD COUNT; Value: 8.6; Range: 4.0-10.0; Units: K/mm3; Status: F Test: RED BLOOD COUNT; Value: 4.30; Range: 4.00-5.40; Units: M/mm3; Status: F Test: HEMOGLOBIN; Value: 13.0; Range: 12.0-16.0; Units: g/dl; Status: F Test: HEMATOCRIT; Value: 38.1; Range: 36.0-47.0; Units: %; Status: F Test: MEAN CORPUSCULAR VOLUME; Value: 88.7; Range: 80.0-96.0; Units: fl; Status: F Test: MEAN CORPUSCULAR HEMOGLOBIN; Value: 30.2; Range: 27.0-33.0; Units: pg; Status: F Test: MEAN CORPUSCULAR HGB CONC; Value: 34.1; Range: 32.0-36.5; Units: g/dl; Status: F Test: RED CELL DISTRIBUTION WIDTH; Value: 12.8; Range: 11.5-14.5; Units: %; Status: F Test: PLATELET COUNT, AUTOMATED; Value: 226; Range: 150-450; Units: k/mm3; Status: F Test: NEUTROPHILS %; Value: 73.8; Range: 36.0-66.0; Abnormal: Above high normal; Units: %; Status: F Test: LYMPH %; Value: 18.5; Range: 24.0-44.0; Abnormal: Below low normal; Units: %; Status: F Test: MONO %; Value: 4.6; Range: 0.0-5.0; Units: %; Status: F Test: EOS %; Value: 1.3; Range: 0.0-3.0; Units: %; Status: F Test: BASO %; Value: 0.5; Range: 0.0-1.0; Units: %; Status: F Test: LARGE UNSTAINED CELL %; Value: 1.3; Range: 0.0-4.0; Units: %; Status: F Test: NEUTROPHILS #; Value: 6.3; Range: 1.8-7.7; Units: K/mm3; Status: F Test: LYMPH #; Value: 1.6; Range: 1.5-6.5; Units: K/mm3; Status: F Test: MONO #; Value: 0.4; Range: 0.0-0.8; Units: K/mm3; Status: F Test: EOS #; Value: 0.1; Range: 0.0-0.50; Units: K/mm3; Status: F Test: BASO #; Value: 0.0; Range: 0.0-0.2; Units: K/mm3; Status: F Test: LARGE UNSTAINED CELL #; Value: 0.1; Range: 0.0-0.4; Units: K/mm3; Status: F Lab Order: MED Profile; SPEC'M 01/10/17 18:26 Test: GLUCOSE, FASTING; Value: 75; Range: 70-105; Units: MG/DL; Status: F Test: BLOOD UREA NITROGEN; Value: 6; Range: 7-18; Abnormal: Below low normal; Units: MG/DL; Status: F Test: CREATININE FOR GFR; Value: 0.63; Range: 0.55-1.02; Units: MG/DL; Status: F Test: GLOMERULAR FILTRATION RATE; Value: > 60.0; Range: >60; Status: F Test: SODIUM LEVEL; Value: 136; Range: 136-145; Units: MEQ/L; Status: F Test: POTASSIUM SERUM; Value: 3.7; Range: 3.5-5.1; Units: MEQ/L; Status: F Test: CHLORIDE LEVEL; Value: 102; Range: 98-107; Units: MEQ/L; Status: F Test: CARBON DIOXIDE LEVEL; Value: 25; Range: 21-32; Units: MEQ/L; Status: F Test: ANION GAP; Value: 9; Range: 8-16; Units: MEQ/L; Status: F Test: CALCIUM LEVEL; Value: 8.5; Range: 8.5-10.1; Units: MG/DL; Status: F Test Note: ; Units are mL/min/1.73 m2 Chronic Kidney Disease Staging per NKF: Stage I & II GFR >=60 Normal to Mildly Decreased Stage III GFR 30-59 Moderately Decreased Stage IV GFR 15-29 Severely Decreased Stage V GFR <15 Very Little GFR Left ESRD GFR <15 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 Lab Order: UA; SPEC'M 01/10/17 18:20 Test: APPEARANCE, URINE; Value: HAZY; Range: CLEAR; Status: F Test: COLOR, URINE; Value: DAMARIS; Range: YELLOW; Status: F Test: PH,URINE; Value: 6.0; Range: 5.0-9.0; Units: UNITS; Status: F Test: SPECIFIC GRAVITY URINE AUTO; Value: 1.026; Range: 1.002-1.035; Status: F Test: PROTEIN, URINE AUTO; Value: 1+; Range: NEGATIVE; Abnormal: Above high normal; Units: mg/dL; Status: F Test: GLUCOSE, URINE (UA) AUTO; Value: NEGATIVE; Range: NEGATIVE; Units: mg/dL; Status: F Test: KETONE, URINE AUTO; Value: 2+; Range: NEGATIVE; Abnormal: Above high normal; Units: mg/dL; Status: F Test: UROBILINOGEN, URINE AUTO; Value: 4.0; Range: 0.0-2.0; Abnormal: Above high normal; Units: mg/dL; Status: F Test: BILIRUBIN, URINE AUTO; Value: 1+; Range: NEGATIVE; Abnormal: Above high normal; Status: F Test: NITRITE, URINE AUTO; Value: NEGATIVE; Range: NEGATIVE; Status: F Test: LEUKOCYTE ESTERASE, URINE AUTO; Value: NEGATIVE; Range: NEGATIVE; Status: F Test: BLOOD, URINE BLOOD; Value: NEGATIVE; Range: NEGATIVE; Status: F Test: WBC, URINE AUTO; Value: 3; Range: 0-3; Units: /HPF; Status: F Test: RBC, URINE AUTO; Value: 1; Range: 0-3; Units: /HPF; Status: F Test: BACTERIA, URINE AUTO; Value: NEGATIVE; Range: NEGATIVE; Status: F Test: SQUAMOUS EPITHELIAL CELL UR AU; Value: 4; Range: 0-6; Units: /HPF; Status: F Test: MUCUS, URINE; Value: LARGE; Range: NEGATIVE; Status: F Test: HYALINE CAST, URINE AUTO; Value: 0; Range: 0-1; Units: /LPF; Status: F Lab Order: Hcg, Serum Quantitative; SPEC'M 01/10/17 18:26 Test: HCG, SERUM QUANTITATIVE; Value: [id number]; Units: MIU/ML; Status: F Test Note: ; GESTATIONAL AGE APPROXIMATE HCG RANGE (MIU/ML) 0.2-1 WEEK 5-50 1-2 WEEKS 50-500 2-3 WEEKS 100-5,000 3-4 WEEKS 500-10,000 4-5 WEEKS 1,000-50,000 5-6 WEEKS 10,000-100,000 6-8 WEEKS 15,000-200,000 2-3 MONTHS 10,000-100,000 NON FEMALES LESS THAN 3.0 Patient samples may contain human heterophilic antibodies that could react with immunoassays to give falsely elevated or depressed results. This assay has been designed to minimize interference from heterophilic antibodies. Elevated hCG levels have also been associated with trophoblastic disease and nontrophoblastic neoplasms. The possibility of having these diseases should be considered before a diagnosis of is made. This test is not intended for use as a surrogate marker for aiding in the diagnosis or monitoring the treatment of cancer patients. Siemens [place] methodology. Lab Order: Type & Screen; SPEC'M 01/10/17 18:26 Test: BLOOD TYPE; Value: O NEG; Status: F Test: AB SCREEN (INDIRECT CARLITOS)VIS; Value: NEGATIVE; Status: F Lab Order: Wet Prep; SPEC'M 01/10/17 20:11 Test: WET PREP; Value: WET PREP RESULT; Status: F Test: WET PREP; Value: MANY EPITHELIAL CELLS PRESENT; Status: F Test: WET PREP; Value: FEW WBC; Status: F Test: WET PREP; Value: FEW RBC; Status: F Test: WET PREP; Value: MANY LONG RODS PRESENT; Status: F Test: WET PREP; Value: MANY SHORT RODS PRESENT; Status: F Radiology Order: US 1st trimester Test: US 1st trimester REASON FOR EXAMINATION: Bleeding; ; CLINICAL HISTORY: .; ; TECHNIQUE: Realtime sonographic images were obtained in multiple projections.; ; COMMENTS:; A single, living, intrauterine was identified utilizing transabdominal imaging technique.; The estimated gestational age is 8 weeks 2 days, based on a pole measurement of 18 mm. The fet; al heart rate was documented at 180 bpm. No subchorionic hemorrhage was identified.; Evaluation of the maternal adnexal and cul-de-sac regions revealed 2 right ovarian cysts, likely a co; rpus luteum. Based on today's examination, the estimated date of delivery is 08/18/2017.; Although a complete anatomical survey is not possible at this gestational age, no gross anomali; es were identified. A repeat scan at 19-20 weeks for a detailed anatomical survey is recommended.; ; IMPRESSION:; Single live IUP dated at 8 w 2 days.; ; ; Thank you for your kind referral of this patient. We appreciate the opportunity to participate in thi; s patient's care.; ; Outcome: 22:30 Discharge ordered by Provider. ck7 22:45 Discharge Assessment: patient administered narcotics - no. The following High Risk [facility] Discharge criteria are identified: None. Discharged to home ambulatory, with significant other. Condition: stable. Discharge instructions given to patient, Instructed on discharge instructions, follow up and referral plans. medication usage, Demonstrated understanding of instructions, medications, Pt was receptive of discharge instructions/ teaching. Prescriptions given X 1. Ultrasound Study completed. Property sent home with patient. 22:45 Patient left the ED. [facility] Signatures: Dispatcher [employer] EDKalani More, RN RN Duc Arenas RN RN mlb1 Paty AvilaRN RN ck1 Lynnette Erwin Demeishia dem1 Kwaczala, Christopher, RPA-C RPA-Cck7 Jagdish PradoRN RN Ayan Regalado jp4 Irma Carmona, Reg Reg ks16 YOBANY
--- NOTE | 2017-01-12 23:47 | EDDOCDS ---
Physician Documentation [facility] Name: Lynnette Hinojosa Age: 26 yrs Sex: Female : 1990 Arrival Date: 01/10/2017 Time: 17:36 Bed I2 / M2 Private MD: Brennan Jon P. Disposition: 01/10/17 22:30 Discharged to Home/Self Care. Impression: Threatened , Vomiting of , unspecified. - Condition is Stable. - Discharge Instructions: Hyperemesis Gravidarum, Threatened Miscarriage, Pelvic Rest. - Prescriptions for Diclegis 10- 10 mg - take 2 tablet by ORAL route every 6-8 hours; 30 tablet. - Medication Reconciliation, Local Pharmacy Hours form. - Follow up: Brennan Jon; When: 1 - 2 days; Reason: Recheck today's complaints, Continuance of care. - Problem is new. - Symptoms have improved. - Notes: PLEASE FOLLOW UP WITH DR JON IN 2 DAYS, RETURN TO THE ER IF THE SYMPTOMS WORSEN OR BECOME CONCERNING Historical: - Allergies: Ibuprofen (Upset stomach); - Home Meds: 1. Phenergan 25 mg Rectal supp 1 suppository every 6 hours - PMHx: Arthritis; Gastric Reflux; - PSHx: right foot surgery; - Social history: Smoking status: Patient states was never smoker of tobacco. No barriers to communication noted, The patient speaks fluent Kazakh, Speaks appropriately for age. - Family history: Not pertinent. - : The pt / caregiver states he / she is not on anticoagulants. Home medication list is obtained from the patient. - Exposure Risk Screening:: None identified. 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 1 in. (154.94 cm); Pain 9/10; 21:59 BP 121 / 75; Pulse 66; Resp 18; Temp 98.9(O); Pulse Ox 97% on R/A; Pain 2/10; jmb 22:43 BP 117 / 73; Pulse 67; Resp 18; Temp 98.6; Pulse Ox 98% ; Pain 0/10; ajs 17:37 Body Mass Index 28.34 (68.04 kg, 154.94 cm) dem1 MDM: 18:03 Financial registration complete. [email or web address] 18:14 IV Saline Lock ordered. ck7 18:14 NS 0.9% 1000 ml IV at bolus once ordered. ck7 18:14 Ondansetron 4 mg IVP once ordered. ck7 18:14 Set up pelvic ordered. ck7 18:14 CBC with Diff Ordered. EDMS 18:14 MED Profile Ordered. EDMS 18:15 UA Ordered. EDMS 18:15 Urine Culture Ordered. EDMS 18:15 Hcg, Serum Quantitative Ordered. EDMS 18:15 Type & Screen Ordered. EDMS 18:15 GC & Chlamydia Amplification Ordered. EDMS 18:15 Wet Prep Ordered. EDMS 18:15 US 1st trimester Ordered. EDMS 18:38 [facility] Payment Agreement was scanned into [employer] and attached to record. [email or web address] 18:51 CBC with Diff Reviewed. ck7 18:51 UA Reviewed. ck7 19:52 Type & Screen Reviewed. ck7 20:24 MED Profile Reviewed. ck7 20:24 Hcg, Serum Quantitative Reviewed. ck7 20:24 Wet Prep Reviewed. ck7 20:48 US 1st trimester Reviewed. ck7 20:55 -RhoGAM Ultra-Filtered Plus 300 mcg IM once ordered. ck7 20:56 Draw Rhogam Ordered. EDMS 01/11 22:47 T-Sheet-- Draft Copy was scanned into [employer] and attached to record. klr Administered Medications: 01/10 18:46 Drug: NS 0.9% 1000 ml [sodium chloride 0.9 % intravenous solution] Route: IV; Rate: jmb bolus; Site: right antecubital; 18:46 Drug: Ondansetron 4 mg [ondansetron HCl 2 mg/mL intravenous solution (2 mL)] Route: jmb IVP; Site: right antecubital; 21:59 Drug: -RhoGAM Ultra-Filtered Plus 300 mcg [RhoGAM Ultra-Filtered PLUS 1,500 unit (300 jmb mcg) intramuscular syringe (300 mcg)] Route: IM; Site: right gluteus; Signatures: Dispatcher [employer] EDMS Kalani Sylvester RN RN [facility] Duc Rossi RN RN mlb1 Jaspreet Santacruz RPA-C RPA-Cck7 Jagdish Prado, RN RN Irma Martinez, Reg Reg [email or web address] Priyanka Mullins The chart was reviewed and I authenticate all verbal orders and agree with the evaluation and treatment provided.Attachments: 18:38 [facility] Payment Agreement [email or web address] 01/11 22:47 T-Sheet-- Draft Copy klr Chart Complete MTDD
--- NOTE | 2017-01-12 23:47 | EDDOCDS ---
Nurse's Notes [facility] Name: Lynnette Hinojosa Age: 26 yrs Sex: Female : 1990 Arrival Date: 01/10/2017 Time: 17:36 Bed I2 / M2 Private MD: Brennan Tristan P. Diagnosis: Threatened ;Vomiting of , unspecified Presentation: 01/10 17:41 Presenting complaint: Patient states: 8 weeks , nausea states cramping and mlb1 spotty vaginal bleeding began today. Risk factors: The patient reports no loss of conciousness prior to arrival. This patient has not had a hysterectomy. This patient has not begun menopause. Adult Sepsis Screening: The patient does not have new or worsening altered mentation. Patient's respiratory rate is less than 22. Systolic blood pressure is greater than 100. Patient has a qSOFA score of 0- Negative Sepsis Screen. Suicide/Homicide risk assessment- the patient denies having any suicidal and/or homicidal ideations and does not present with any other emotional, behavioral or mental health complaints. Status: Patient is not a field services director or dependent. Transition of care: patient was not received from another setting of care. 17:41 Acuity: JULIO CESAR Level 3 mlb1 17:41 Method Of Arrival: Walkin/Carried/Asstd mlb1 Triage Assessment: 17:44 General: Appears in no apparent distress, Behavior is anxious, cooperative. Pain: mlb1 Location: pelvis Pain currently is 8 out of 10 on a pain scale. Quality of pain is described as crampy. HIV screening NA for this visit Offered previously. : Reports vaginal bleeding that is spotty. 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 Phenergan 25 mg Rectal supp 1 suppository every 6 hours - PMHx: Arthritis; Gastric Reflux; - PSHx: right foot surgery; - Social history: Smoking status: Patient states was never smoker of tobacco. No barriers to communication noted, The patient speaks fluent Emirati, Speaks appropriately for age. - Family history: Not pertinent. - : The pt / caregiver states he / she is not on anticoagulants. Home medication list is obtained from the patient. - Exposure Risk Screening:: None identified. Screenin:29 Screening information is obtained from the patient. Fall risk: No risks identified. jmb Assistance ADL's: requires no assistance with activities of daily living. Abuse/DV Screen: The patient / caregiver reports he/she is: not in a situation that causes fear, pain or injury. Nutritional screening: No deficits noted. home support is adequate. 22:45 Advance Directives: There is no active DNR order. mcp Assessment: 18:29 General: Appears in no apparent distress, Behavior is appropriate for age, cooperative. jmb Pain: Location: pelvis Pain currently is 6 out of 10 on a pain scale. 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 Cardiovascular: Capillary refill < 3 seconds Heart tones S1 S2 present Pulses are all present. Rhythm is regular. Respiratory: Airway is patent Respiratory effort is even, unlabored, Respiratory pattern is regular, symmetrical, Breath sounds are clear bilaterally. GI: Abdomen is non- distended Bowel sounds present X 4 quads. Abd is soft X 4 quads. : Patient reports bleeding. Derm: Skin is pink, warm & dry. Musculoskeletal: Range of motion intact in all extremities. 19:05 General: Appears in no apparent distress, comfortable, Behavior is appropriate for age, jmb cooperative, Patient laying on stretcher, appears comfortable. Patient voices no complaints at this time. Family at bedside. . Neurological: Level of Consciousness is awake, alert, obeys commands, Oriented to person, place, time. Respiratory: Airway is patent Respiratory effort is even, unlabored, Respiratory pattern is regular, symmetrical. 19:44 General: Appears in no apparent distress, comfortable, Behavior is appropriate for age, jmb cooperative. Neurological: Level of Consciousness is awake, alert, obeys commands, Oriented to person, place, time. Respiratory: Airway is patent Respiratory effort is even, unlabored, Respiratory pattern is regular, symmetrical. 21:36 General: Appears in no apparent distress, comfortable, Behavior is appropriate for age, jmb cooperative, Patient up to bathroom. Patient voices no concerns at this time. Laying on stretcher with significant other at bedside. . Neurological: Level of Consciousness is awake, alert, obeys commands, Oriented to person, place, time. Respiratory: Airway is patent Respiratory effort is even, unlabored, Respiratory pattern is regular, symmetrical. Vital Signs: 17:37 BP 121 / 79; Pulse 84; Resp 16; Temp 98.0(O); Pulse Ox 100% on R/A; Weight 68.04 kg; dem1 Height 5 ft. 1 in. (154.94 cm); Pain 9/10; 21:59 BP 121 / 75; Pulse 66; Resp 18; Temp 98.9(O); Pulse Ox 97% on R/A; Pain 2/10; jmb 22:43 BP 117 / 73; Pulse 67; Resp 18; Temp 98.6; Pulse Ox 98% ; Pain 0/10; ajs 17:37 Body Mass Index 28.34 (68.04 kg, 154.94 cm) [facility] Vitals: 17:37 Log In Time: January 10, 2017 at 17:35. [facility] ED Course: 17:37 Patient visited by Gianni Martins. dem1 17:37 Brennan Tristan is Private Physician. dem1 17:37 Patient moved to Waiting dem1 17:38 Patient moved to Pre RCE dem1 17:41 Patient visited by Duc Rossi, RN. mlb1 17:42 Triage Initiated mlb1 17:44 Patient visited by Duc Rossi, RN. mlb1 17:44 Patient moved to Triage 1 mlb1 17:59 [facility] ck7 17:59 Quintin Gonzalez MD is Attending Physician. ck7 17:59 Patient visited by Jaspreet Santacruz RPA-C. ck7 18:18 Patient moved to I3 / M3 ck1 18:22 Urine Culture Sent. jp4 18:22 UA Sent. jp4 18:25 Patient moved to I2 / M2 jm 18:29 The patient / caregiver is instructed regarding the plan of care and ED course. bhavani 18:29 Type & Screen Sent. bhavani 18:29 Hcg, Serum Quantitative Sent. johnnieb 18:29 MED Profile Sent. bhavani 18:29 CBC with Diff Sent. bhavani 18:29 Inserted saline lock: 20 gauge in right antecubital area and blood collected. [facility] patient tolerated the procedure well. Labs drawn. (by ED staff). Sent per order to lab. 18:32 Patient visited by Jagdish Prado RN. jmb 18:38 [facility] Payment Agreement was scanned into [employer] and attached to record. ks16 19:06 Patient visited by Jagdish Prado RN. jmb 19:44 Patient visited by Jagdish Prado RN. jmb 20:14 Patient visited by Kalani Sylvester RN. mcp 20:14 Wet Prep Sent. mcp 20:14 GC & Chlamydia Amplification Sent. mcp 20:14 Assist provider with pelvic exam: Set up pelvic tray. Specimens sent to lab. Performed mcp by Jaspreet SINGH Patient tolerated well. 20:29 US 1st trimester Returned. EDMS 20:48 Patient visited by Jaspreet Santacruz RPA-C. ck7 20:57 Draw Rhogam Sent. mcp 21:37 Patient visited by Jagdish Prado RN. jmb 22:07 Patient visited by Jaspreet Santacruz RPA-C. ck7 22:30 Brennan Tristan is Referral Physician. ck7 22:43 Patient visited by Lynnette Erwin. ajs 22:44 Discontinued lock intact, bleeding controlled, pressure dressing applied, No mcp redness/swelling at site. 01/11 22:47 T-Sheet-- Draft Copy was scanned into [employer] and attached to record. klr Administered Medications: 01/10 18:46 Drug: NS 0.9% 1000 ml [sodium chloride 0.9 % intravenous solution] Route: IV; Rate: jmb bolus; Site: right antecubital; 18:46 Drug: Ondansetron 4 mg [ondansetron HCl 2 mg/mL intravenous solution (2 mL)] Route: jmb IVP; Site: right antecubital; 21:59 Drug: -RhoGAM Ultra-Filtered Plus 300 mcg [RhoGAM Ultra-Filtered PLUS 1,500 unit (300 jmb mcg) intramuscular syringe (300 mcg)] Route: IM; Site: right gluteus; Order Results: Lab Order: CBC with Diff; SPEC'M 01/10/17 18:26 Test: WHITE BLOOD COUNT; Value: 8.6; Range: 4.0-10.0; Units: K/mm3; Status: F Test: RED BLOOD COUNT; Value: 4.30; Range: 4.00-5.40; Units: M/mm3; Status: F Test: HEMOGLOBIN; Value: 13.0; Range: 12.0-16.0; Units: g/dl; Status: F Test: HEMATOCRIT; Value: 38.1; Range: 36.0-47.0; Units: %; Status: F Test: MEAN CORPUSCULAR VOLUME; Value: 88.7; Range: 80.0-96.0; Units: fl; Status: F Test: MEAN CORPUSCULAR HEMOGLOBIN; Value: 30.2; Range: 27.0-33.0; Units: pg; Status: F Test: MEAN CORPUSCULAR HGB CONC; Value: 34.1; Range: 32.0-36.5; Units: g/dl; Status: F Test: RED CELL DISTRIBUTION WIDTH; Value: 12.8; Range: 11.5-14.5; Units: %; Status: F Test: PLATELET COUNT, AUTOMATED; Value: 226; Range: 150-450; Units: k/mm3; Status: F Test: NEUTROPHILS %; Value: 73.8; Range: 36.0-66.0; Abnormal: Above high normal; Units: %; Status: F Test: LYMPH %; Value: 18.5; Range: 24.0-44.0; Abnormal: Below low normal; Units: %; Status: F Test: MONO %; Value: 4.6; Range: 0.0-5.0; Units: %; Status: F Test: EOS %; Value: 1.3; Range: 0.0-3.0; Units: %; Status: F Test: BASO %; Value: 0.5; Range: 0.0-1.0; Units: %; Status: F Test: LARGE UNSTAINED CELL %; Value: 1.3; Range: 0.0-4.0; Units: %; Status: F Test: NEUTROPHILS #; Value: 6.3; Range: 1.8-7.7; Units: K/mm3; Status: F Test: LYMPH #; Value: 1.6; Range: 1.5-6.5; Units: K/mm3; Status: F Test: MONO #; Value: 0.4; Range: 0.0-0.8; Units: K/mm3; Status: F Test: EOS #; Value: 0.1; Range: 0.0-0.50; Units: K/mm3; Status: F Test: BASO #; Value: 0.0; Range: 0.0-0.2; Units: K/mm3; Status: F Test: LARGE UNSTAINED CELL #; Value: 0.1; Range: 0.0-0.4; Units: K/mm3; Status: F Lab Order: MED Profile; SPEC'M 01/10/17 18:26 Test: GLUCOSE, FASTING; Value: 75; Range: 70-105; Units: MG/DL; Status: F Test: BLOOD UREA NITROGEN; Value: 6; Range: 7-18; Abnormal: Below low normal; Units: MG/DL; Status: F Test: CREATININE FOR GFR; Value: 0.63; Range: 0.55-1.02; Units: MG/DL; Status: F Test: GLOMERULAR FILTRATION RATE; Value: > 60.0; Range: >60; Status: F Test: SODIUM LEVEL; Value: 136; Range: 136-145; Units: MEQ/L; Status: F Test: POTASSIUM SERUM; Value: 3.7; Range: 3.5-5.1; Units: MEQ/L; Status: F Test: CHLORIDE LEVEL; Value: 102; Range: 98-107; Units: MEQ/L; Status: F Test: CARBON DIOXIDE LEVEL; Value: 25; Range: 21-32; Units: MEQ/L; Status: F Test: ANION GAP; Value: 9; Range: 8-16; Units: MEQ/L; Status: F Test: CALCIUM LEVEL; Value: 8.5; Range: 8.5-10.1; Units: MG/DL; Status: F Test Note: ; Units are mL/min/1.73 m2 Chronic Kidney Disease Staging per NKF: Stage I & II GFR >=60 Normal to Mildly Decreased Stage III GFR 30-59 Moderately Decreased Stage IV GFR 15-29 Severely Decreased Stage V GFR <15 Very Little GFR Left ESRD GFR <15 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 Lab Order: UA; SPEC'M 01/10/17 18:20 Test: APPEARANCE, URINE; Value: HAZY; Range: CLEAR; Status: F Test: COLOR, URINE; Value: DAMARIS; Range: YELLOW; Status: F Test: PH,URINE; Value: 6.0; Range: 5.0-9.0; Units: UNITS; Status: F Test: SPECIFIC GRAVITY URINE AUTO; Value: 1.026; Range: 1.002-1.035; Status: F Test: PROTEIN, URINE AUTO; Value: 1+; Range: NEGATIVE; Abnormal: Above high normal; Units: mg/dL; Status: F Test: GLUCOSE, URINE (UA) AUTO; Value: NEGATIVE; Range: NEGATIVE; Units: mg/dL; Status: F Test: KETONE, URINE AUTO; Value: 2+; Range: NEGATIVE; Abnormal: Above high normal; Units: mg/dL; Status: F Test: UROBILINOGEN, URINE AUTO; Value: 4.0; Range: 0.0-2.0; Abnormal: Above high normal; Units: mg/dL; Status: F Test: BILIRUBIN, URINE AUTO; Value: 1+; Range: NEGATIVE; Abnormal: Above high normal; Status: F Test: NITRITE, URINE AUTO; Value: NEGATIVE; Range: NEGATIVE; Status: F Test: LEUKOCYTE ESTERASE, URINE AUTO; Value: NEGATIVE; Range: NEGATIVE; Status: F Test: BLOOD, URINE BLOOD; Value: NEGATIVE; Range: NEGATIVE; Status: F Test: WBC, URINE AUTO; Value: 3; Range: 0-3; Units: /HPF; Status: F Test: RBC, URINE AUTO; Value: 1; Range: 0-3; Units: /HPF; Status: F Test: BACTERIA, URINE AUTO; Value: NEGATIVE; Range: NEGATIVE; Status: F Test: SQUAMOUS EPITHELIAL CELL UR AU; Value: 4; Range: 0-6; Units: /HPF; Status: F Test: MUCUS, URINE; Value: LARGE; Range: NEGATIVE; Status: F Test: HYALINE CAST, URINE AUTO; Value: 0; Range: 0-1; Units: /LPF; Status: F Lab Order: Urine Culture; SPEC'M 01/10/17 18:20 Test: URINE CULTURE; Value: <EXTERNAL COMMENT eCWMed> FULL REPORT IN LAB NOTES (eCW and Medent).; Status: F Test: URINE CULTURE; Value: URINE CULTURE RESULT NO GROWTH; Status: F Lab Order: Hcg, Serum Quantitative; SPEC'M 01/10/17 18:26 Test: HCG, SERUM QUANTITATIVE; Value: [id number]; Units: MIU/ML; Status: F Test Note: ; GESTATIONAL AGE APPROXIMATE HCG RANGE (MIU/ML) 0.2-1 WEEK 5-50 1-2 WEEKS 50-500 2-3 WEEKS 100-5,000 3-4 WEEKS 500-10,000 4-5 WEEKS 1,000-50,000 5-6 WEEKS 10,000-100,000 6-8 WEEKS 15,000-200,000 2-3 MONTHS 10,000-100,000 NON FEMALES LESS THAN 3.0 Patient samples may contain human heterophilic antibodies that could react with immunoassays to give falsely elevated or depressed results. This assay has been designed to minimize interference from heterophilic antibodies. Elevated hCG levels have also been associated with trophoblastic disease and nontrophoblastic neoplasms. The possibility of having these diseases should be considered before a diagnosis of is made. This test is not intended for use as a surrogate marker for aiding in the diagnosis or monitoring the treatment of cancer patients. Siemens Lissie methodology. Lab Order: Type & Screen; SPEC'M 01/10/17 18:26 Test: BLOOD TYPE; Value: O NEG; Status: F Test: AB SCREEN (INDIRECT CARLITOS)VIS; Value: NEGATIVE; Status: F Lab Order: GC & Chlamydia Amplification; SPEC'M 01/10/17 20:11 Test: CHLAMYDIA DNA AMPLIFICATION; Value: NEGATIVE; Range: NEGATIVE; Status: F Test: GC DNA AMPLIFICATION; Value: NEGATIVE; Range: NEGATIVE; Status: F Lab Order: Wet Prep; SPEC' 01/10/17 20:11 Test: WET PREP; Value: WET PREP RESULT; Status: F Test: WET PREP; Value: MANY EPITHELIAL CELLS PRESENT; Status: F Test: WET PREP; Value: FEW WBC; Status: F Test: WET PREP; Value: FEW RBC; Status: F Test: WET PREP; Value: MANY LONG RODS PRESENT; Status: F Test: WET PREP; Value: MANY SHORT RODS PRESENT; Status: F Radiology Order: US 1st trimester Test: US 1st trimester REASON FOR EXAMINATION: Bleeding; ; CLINICAL HISTORY: .; ; TECHNIQUE: Realtime sonographic images were obtained in multiple projections.; ; COMMENTS:; A single, living, intrauterine was identified utilizing transabdominal imaging technique.; The estimated gestational age is 8 weeks 2 days, based on a pole measurement of 18 mm. The fet; al heart rate was documented at 180 bpm. No subchorionic hemorrhage was identified.; Evaluation of the maternal adnexal and cul-de-sac regions revealed 2 right ovarian cysts, likely a co; rpus luteum. Based on today's examination, the estimated date of delivery is 08/18/2017.; Although a complete anatomical survey is not possible at this gestational age, no gross anomali; es were identified. A repeat scan at 19-20 weeks for a detailed anatomical survey is recommended.; ; IMPRESSION:; Single live IUP dated at 8 w 2 days.; ; ; Thank you for your kind referral of this patient. We appreciate the opportunity to participate in thi; s patient's care.; ; Outcome: 22:30 Discharge ordered by Provider. ck7 22:45 Discharge Assessment: patient administered narcotics - no. The following High Risk [facility] Discharge criteria are identified: None. Discharged to home ambulatory, with significant other. Condition: stable. Discharge instructions given to patient, Instructed on discharge instructions, follow up and referral plans. medication usage, Demonstrated understanding of instructions, medications, Pt was receptive of discharge instructions/ teaching. Prescriptions given X 1. Ultrasound Study completed. Property sent home with patient. 22:45 Patient left the ED. [facility] Signatures: Dispatcher [employer] Kalani Quinn RN RN mcp Barney, Michael B RN RN mlb1 Paty AvilaRN RN ck1 Lynnette Erwin Demeishia dem1 Kwaczala, Christopher, RPA-C RPA-Cck7 Jagdish Prado RN RN bhavani Armando, Ayan gonzales4 Irma Carmona, Reg Reg ks16 Priyanka Mullins Chart Complete MTDD
--- NOTE | 2017-01-12 23:47 | EDDOCDS ---
Physician Documentation [facility] Name: Lynnette Hinojosa Age: 26 yrs Sex: Female : 1990 Arrival Date: 01/10/2017 Time: 17:36 Bed I2 / M2 Private MD: Brennan Jon P. Disposition: 01/10/17 22:30 Discharged to Home/Self Care. Impression: Threatened , Vomiting of , unspecified. - Condition is Stable. - Discharge Instructions: Hyperemesis Gravidarum, Threatened Miscarriage, Pelvic Rest. - Prescriptions for Diclegis 10- 10 mg - take 2 tablet by ORAL route every 6-8 hours; 30 tablet. - Medication Reconciliation, Local Pharmacy Hours form. - Follow up: Brennan Jon; When: 1 - 2 days; Reason: Recheck today's complaints, Continuance of care. - Problem is new. - Symptoms have improved. - Notes: PLEASE FOLLOW UP WITH DR JON IN 2 DAYS, RETURN TO THE ER IF THE SYMPTOMS WORSEN OR BECOME CONCERNING Historical: - Allergies: Ibuprofen (Upset stomach); - Home Meds: 1. Phenergan 25 mg Rectal supp 1 suppository every 6 hours - PMHx: Arthritis; Gastric Reflux; - PSHx: right foot surgery; - Social history: Smoking status: Patient states was never smoker of tobacco. No barriers to communication noted, The patient speaks fluent Amharic, Speaks appropriately for age. - Family history: Not pertinent. - : The pt / caregiver states he / she is not on anticoagulants. Home medication list is obtained from the patient. - Exposure Risk Screening:: None identified. 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 1 in. (154.94 cm); Pain 9/10; 21:59 BP 121 / 75; Pulse 66; Resp 18; Temp 98.9(O); Pulse Ox 97% on R/A; Pain 2/10; jmb 22:43 BP 117 / 73; Pulse 67; Resp 18; Temp 98.6; Pulse Ox 98% ; Pain 0/10; ajs 17:37 Body Mass Index 28.34 (68.04 kg, 154.94 cm) dem1 MDM: 18:03 Financial registration complete. ks16 18:14 IV Saline Lock ordered. ck7 18:14 NS 0.9% 1000 ml IV at bolus once ordered. ck7 18:14 Ondansetron 4 mg IVP once ordered. ck7 18:14 Set up pelvic ordered. ck7 18:14 CBC with Diff Ordered. EDMS 18:14 MED Profile Ordered. EDMS 18:15 UA Ordered. EDMS 18:15 Urine Culture Ordered. EDMS 18:15 Hcg, Serum Quantitative Ordered. EDMS 18:15 Type & Screen Ordered. EDMS 18:15 GC & Chlamydia Amplification Ordered. EDMS 18:15 Wet Prep Ordered. EDMS 18:15 US 1st trimester Ordered. EDMS 18:38 [facility] Payment Agreement was scanned into [employer] and attached to record. ks16 18:51 CBC with Diff Reviewed. ck7 18:51 UA Reviewed. ck7 19:52 Type & Screen Reviewed. ck7 20:24 MED Profile Reviewed. ck7 20:24 Hcg, Serum Quantitative Reviewed. ck7 20:24 Wet Prep Reviewed. ck7 20:48 US 1st trimester Reviewed. ck7 20:55 -RhoGAM Ultra-Filtered Plus 300 mcg IM once ordered. ck7 20:56 Draw Rhogam Ordered. EDMS 01/11 22:47 T-Sheet-- Draft Copy was scanned into [employer] and attached to record. klr Administered Medications: 01/10 18:46 Drug: NS 0.9% 1000 ml [sodium chloride 0.9 % intravenous solution] Route: IV; Rate: jmb bolus; Site: right antecubital; 18:46 Drug: Ondansetron 4 mg [ondansetron HCl 2 mg/mL intravenous solution (2 mL)] Route: jmb IVP; Site: right antecubital; 21:59 Drug: -RhoGAM Ultra-Filtered Plus 300 mcg [RhoGAM Ultra-Filtered PLUS 1,500 unit (300 jmb mcg) intramuscular syringe (300 mcg)] Route: IM; Site: right gluteus; Signatures: Dispatcher [employer] EDMS Kalani Sylvester RN RN [facility] Duc Rossi RN RN mlb1 Jaspreet Santacruz RPA-C RPA-Cck7 Jagdish Prado, RN RN Irma aMrtinez, Reg Reg ks16 Priyanka Mullins The chart was reviewed and I authenticate all verbal orders and agree with the evaluation and treatment provided.Attachments: 18:38 [facility] Payment Agreement [email or web address] 01/11 22:47 T-Sheet-- Draft Copy klr Chart Complete MTDD
== END 2017-01-10 22:45 | disposition home or self-care (01) ==
LOC: M ED 17:36
DX: O20.0 Threatened abortion (principal); O21.9 Vomiting of pregnancy, unspecified; Z3A.08 8 weeks gestation of pregnancy; O99.611 Diseases of the digestive system complicating pregnancy, first trimester; K21.9 Gastro-esophageal reflux disease without esophagitis

== ENCOUNTER 2017-01-12 14:16 | Observation (INO) | payer OTHER ==
[2017-01-12] MEDS ORDERED: ONDANSETRON 4MG/2ML VIAL (J2405) IV PRN (15:00)
[2017-01-12 15:50] VITALS: BP 139/87
[2017-01-12] MEDS ORDERED: PHEN1SUP6 PR (15:57)
[2017-01-12 16:06] LABS: MEAN CORPUSCULAR HEMOGLOBIN 30.4 pg (27.0-33.0); MEAN CORPUSCULAR HGB CONC 34.5 g/dl (32.0-36.5); MEAN CORPUSCULAR VOLUME 88.2 fl (80.0-96.0); RED CELL DISTRIBUTION WIDTH 13.1 % (11.5-14.5); WHITE BLOOD COUNT 9.3 K/mm3 (4.0-10.0)
[2017-01-12 16:54] LABS: ALBUMIN 3.9 GM/DL (3.2-5.2); ALBUMIN/GLOBULIN RATIO 0.98 (1.00-1.93); ALKALINE PHOSPHATASE 69 U/L (45-117); ALT/SGPT 31 U/L (12-78); ANION GAP 12 MEQ/L (8-16); AST/SGOT 23 U/L (15-37); BILIRUBIN,TOTAL 0.7 MG/DL (0.2-1.0); BLOOD UREA NITROGEN 6 MG/DL (7-18); CALCIUM LEVEL 8.9 MG/DL (8.5-10.1); CARBON DIOXIDE LEVEL 23 MEQ/L (21-32); CHLORIDE LEVEL 104 MEQ/L (98-107); CREATININE FOR GFR 0.59 MG/DL (0.55-1.02); GLOMERULAR FILTRATION RATE > 60.0 (>60); GLUCOSE, FASTING 76 MG/DL (70-105); POTASSIUM SERUM 3.8 MEQ/L (3.5-5.1); SODIUM LEVEL 139 MEQ/L (136-145); TOTAL PROTEIN 7.9 GM/DL (6.4-8.2)
[2017-01-12] MEDS ORDERED: MULTIVITAMIN -ADULT INJECTION 10 ML, THIAMINE INJection 100 MG, FOLIC ACID 1 MG in NS 1... IV ONE (17:00)
--- NOTE | 2017-01-12 17:07 | HPEPDOC ---
Obstetrical History & Physical General Date of Admission Jan 12, 2017 at 15:44 History of Present Illness 26-year-old female 8-6/7 weeks gestational age which is dated by last menstrual period consistent with 6 week ultrasound and a EDC of 08/18/2017 presents with nausea and vomiting for a couple weeks. Patient has been seen outpatient for a couple times due to this complaint. Patient reports not being able to keep solids and liquids down. Reports emesis of several times a day. Patient has tried Zofran oral as well as Phenergan rectal for this. Patient has also tried trevon and trevon yusef with no relief. Patient reports that urinating for the past 2 days. Patient was recently seen in the ER on 01/10/2017. In the ER patient received 1 L normal saline IV as well as Zofran. Patient was discharged from the ER with Phenergan rectal suppositories. Patient reports that she has had no relief since this time. Presented to the office today 01/12/2017. At this time she was deemed eligible for admission to hospital. Patient agreed with this treatment plan. 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 Cooperative. Nausea upon sitting, patient lying down in bed for relief. No acute distress. ABDOMEN: Gravid and non-tender to touch. Bowel sounds on auscultation. No epigastric tenderness to palpation. HEART RATE: Regular rate and rhythm. No clicks, rubs, gallops or murmurs. LUNGS: Clear to auscultation (CTA). Equal Bilaterally. Vital Signs/I&O Vital Signs Date Time Temp Pulse Resp B/P Pulse Ox O2 Delivery O2 Flow Rate FiO2 01/12/17 15:50 97.0 92 22 139/87 96 Laboratory Data 24H LABS Laboratory Tests 2 01/12/17 15:55: CBC/BMP Laboratory Tests 01/12/17 15:55 Red Blood Count 4.17, Mean Corpuscular Volume 88.2, Mean Corpuscular Hemoglobin 30.4, Mean Corpuscular Hemoglobin Concent 34.5, Red Cell Distribution Width 13.1 Pertinent Laboratoy Data Blood Type: O- Assessment/Plan Assessment Lynnette is a 0.4-year-old (G) 1 para (P) 0 -0-0-0 at 8 + 6/7 weeks by 6- week ultrasound. Presents to Labor and Delivery (L&D) with nausea and vomiting for a couple weeks. Patient has had a greater than 5% weight loss since prepregnancy weight. Patient reports not being able to keep any food or drink down. Patient reports no urination for past 2 days. She is tried several different things such as Zofran oral and Phenergan rectal suppositories without any relief. Was recently in the ER for nausea and vomiting was given normal saline IV as well as Zofran. Patient also had bleed while in the ER and was given a shot of program. Patient was in outpatient office and received a ultrasound today. Ultrasound showed 8 week fetus and gestational sac. No twin or molar was visualized. Heart rate was obtained. Patient's symptoms and signs are consistent with hyperemesis gravidarum. Admitting patient for overnight to replenish her fluids with a banana bag. Will monitor patient's electrolytes status. Ordering a CMP. Monitor patient for ketonuria by urinalysis. Plan on following up urinalysis in the morning to see if ketonuria resolves. Patient has been ordered Zofran and Phenergan IV every 6 hours for urine for nausea. Patient also ordered a regular diet as tolerated. Plan is to monitor patient overnight for electrolytes status and vomiting. To assess patient's electrolyte status as well as ketonuria. Plan Admit and orient. [employer] and consent. Diet: As tolerated regular diet.. Group B Streptococcus (GBS) [negative]. Rehydration therapy ordered with banana bag. CBC and CMP ordered to evaluate electrolyte status. Urinalysis ordered to evaluate patient for ketonuria. GME ATTESTATION GME ATTESTATION My preceptor for this patient encounter was Dr. Tristan and he was physically present in the building during the encounter and was fully available. As needed , all aspects of the patient interview, examination, medical decision making process, and medical care plan development were reviewed and approved by the preceptor. Preceptor is aware and concurs with the plan as stated in the body of this note and will attest to such by his/her cosignature. KAELA CAMARENA DO Jan 12, 2017 16:38
[2017-01-12 17:36] VITALS: BP 127/67
[2017-01-12] MEDS: PROMETHAZINE INJ 25 MG/ML VIAL (J2550) IV PRN (18:23)
[2017-01-12 20:00] VITALS: BP 95/54
[2017-01-12 21:09] VITALS: BP 99/58
[2017-01-13] VITALS: BP 103/65
[2017-01-13] MEDS: LR 1,000 ML IV SCH ×4 (00:03→22:05)
[2017-01-13] MEDS: PROMETHAZINE INJ 25 MG/ML VIAL (J2550) IV PRN (00:30)
[2017-01-13 08:00] VITALS: BP 99/53
[2017-01-13 16:00] VITALS: BP 113/62
[2017-01-13 20:00] VITALS: BP 102/57
[2017-01-14] VITALS: BP 99/66
[2017-01-14 08:00] VITALS: BP 104/58
[2017-01-14] MEDS: PROMETHAZINE 25 MG TAB PO PRN ×2 (08:34→21:55)
[2017-01-14] MEDS: LR 1,000 ML IV SCH (12:21)
[2017-01-14 16:00] VITALS: BP 98/52
[2017-01-14 20:00] VITALS: BP 104/66
[2017-01-15] VITALS: BP 96/61
[2017-01-15] MEDS: LR 1,000 ML IV SCH ×2 (01:00→03:58)
[2017-01-15 08:00] VITALS: BP 103/56
[2017-01-15] MEDS ORDERED: PROM25TA PO (08:30)
[2017-01-15] MEDS ORDERED: ONDA8TAB8 PO (08:30)
--- NOTE | 2017-01-15 16:41 | DSES ---
DATE OF ADMISSION: 01/12/2017 DATE OF DISCHARGE: 01/15/2017 A 26-year-old 1 at 9 weeks gestation, hospitalized here for hyperemesis. Has been tolerating fluids without vomiting since last evening, utilizing Zofran and Phenergan to control nausea. Vital signs are stable. She is afebrile and normotensive. She is alert, oriented in no apparent distress. She verbalized understanding of dietary recommendations and appropriate use of antiemetics. Warnings reviewed related to persistent vomiting and signs and symptoms to report. The patient was encouraged to make appointment in the office in 1-2 weeks. Discharged to home.
== END 2017-01-15 10:57 | disposition home or self-care (01) ==
LOC: PREINTOOBSV 15:41 → M PED 15:44
PROVIDERS: ADMIT Obstetrics & Gynecology; ATTEND Obstetrics & Gynecology
DX: O21.0 Mild hyperemesis gravidarum (principal)

== ENCOUNTER → 2017-03-12 | Outpatient (CLI) | payer OTHER ==
[~2017-03-12] MED LIST: ONDA8TAB8 PO; PHEN1SUP6 PR; PROM25TA PO
== END ==
LOC: M SMT 14:20
PROVIDERS: ATTEND Advanced Practice Midwife
DX: Z13.79 Encounter for other screening for genetic and chromosomal anomalies (principal)

== ENCOUNTER → 2017-03-23 | Outpatient (CLI) | payer OTHER ==
--- NOTE | 2017-03-24 04:23 | REP ---
Clinical: Anatomical evaluation. Comparison: 01/10/2017 . Findings: Examination demonstrates a single live intrauterine in transverse (head to the maternal right side) presentation. motion is identified by technologist. Placenta is noted anteriorly and grade zero without evidence for placenta previa or abruption. Amniotic fluid volume is normal. Cervix measures 5.0 cm in length and appears closed. No evidence for nuchal cord. Gestational age by LMP 18 weeks 6 days with SHAGGY 08/18/2017. Gestational age by current measurements 19 weeks 0 days with SAHGGY 08/17/2017 . FHR equals 150 beats per minute. BPD 4.3 cm 19 weeks 0 days HC 16.8 cm 19 weeks 3 days AC 13.6 cm 19 weeks 0 days FL 2.8 cm 18 weeks 5 days HL 2.8 cm 19 weeks 1 day HC/AC ratio 1.24 Estimated weight 264 grams ( 47th percentile). Anatomical assessment demonstrates normal structures including cranium, choroid plexus, cavum, cerebellum/posterior fossa, nose/lips , lungs, four-chamber heart/ left ventricular outflow tracts, diaphragm, stomach, cord insertion/three-vessel cord, kidneys/bladder, spine, and extremities. Limited evaluation of the facial profile and right cardiac ventricular outflow tract due to positioning. Impression: Single live intrauterine in transverse lie demonstrating appropriate interval growth. While no gross abnormalities are identified, limited evaluation of the facial profile and right cardiac ventricular outflow tract may warrant reevaluation/follow-up. Signed by Dante Beauchamp MD 03/24/2017 04:15 A
== END ==
LOC: M RAD 14:52
PROVIDERS: ATTEND Obstetrics & Gynecology
DX: Z36 Encounter for antenatal screening of mother (principal); Z3A.18 18 weeks gestation of pregnancy

== ENCOUNTER 2017-04-24 16:29 | Outpatient (CLI) | payer OTHER ==
[~2017-04-24] VITALS: Ht 154.9 cm; Wt 67.0 kg
== END 2017-04-24 18:00 | disposition home or self-care (01) ==
LOC: M LDO 16:29
PROVIDERS: ATTEND Specialist
DX: O26.892 Other specified pregnancy related conditions, second trimester (principal); Z3A.23 23 weeks gestation of pregnancy; R10.2 Pelvic and perineal pain

== ENCOUNTER → 2017-05-13 | Outpatient (CLI) | payer OTHER ==
[2017-05-13 13:29] LABS: MEAN CORPUSCULAR HEMOGLOBIN 30.6 pg (27.0-33.0); MEAN CORPUSCULAR HGB CONC 33.3 g/dl (32.0-36.5); RED CELL DISTRIBUTION WIDTH 13.9 % (11.5-14.5)
== END ==
LOC: M SMT 09:16
PROVIDERS: ATTEND Advanced Practice Midwife
DX: Z36 Encounter for antenatal screening of mother (principal); Z3A.00 Weeks of gestation of pregnancy not specified

== ENCOUNTER 2017-05-21 22:04 | Emergency (ER) | payer OTHER ==
[~2017-05-21] VITALS: Ht 154.9 cm; Wt 71.1 kg
[2017-05-21 22:33] VITALS: BP 115/64
[2017-05-21] MEDS ORDERED: NS 1,000 ML IV ONE (22:45)
[2017-05-21] MEDS: MORPHINE 4 MG/ML 1ML SYRINGE IV PRN (23:22)
[2017-05-21 23:24] LABS: BASO % 0.4 % (0.0-1.0); EOS # 0.1 K/mm3 (0.0-0.50); EOS % 1.2 % (0.0-3.0); LARGE UNSTAINED CELL # 0.1 K/mm3 (0.0-0.4); LARGE UNSTAINED CELL % 0.8 % (0.0-4.0); LYMPH # 1.6 K/mm3 (1.5-6.5); LYMPH % 13.6 % (24.0-44.0); MEAN CORPUSCULAR HEMOGLOBIN 30.3 pg (27.0-33.0); MEAN CORPUSCULAR HGB CONC 34.3 g/dl (32.0-36.5); MEAN CORPUSCULAR VOLUME 88.5 fl (80.0-96.0); MONO # 0.4 K/mm3 (0.0-0.8); MONO % 3.5 % (0.0-5.0); NEUTROPHILS # 9.2 K/mm3 (1.8-7.7); NEUTROPHILS % 80.4 % (36.0-66.0); PLATELET COUNT, AUTOMATED 227 k/mm3 (150-450); RED CELL DISTRIBUTION WIDTH 14.2 % (11.5-14.5); VENOUS O2 SATURATION 98.2 % (60.0-80.0); WHITE BLOOD COUNT 11.5 K/mm3 (4.0-10.0)
[2017-05-21 23:26] LABS: VENOUS BASE EXCESS -2.3 (-2.0-2.0); VENOUS PARTIAL PRESSURE O2 119.5 mmHg (30.0-50.0); VENOUS STANDARD HCO3 22.6 MEQ/L
[2017-05-21 23:39] LABS: INR 1.03
--- NOTE | 2017-05-21 23:50 | REPUSA ---
CT of the abdomen and pelvis without contrast Clinical statement: trauma. Technique: Multiple axial CT images were obtained from the base of the lungs to the floor of the pelv is utilizing 5 mm axial slices without administration of contrast. Coronal and sagittal reconstructio ns were also obtained. Comparison: None. Findings: Chest: The visualized lung bases are clear. Abdomen: The kidneys are normal in size bilaterally. There is no evidence of hydronephrosis or nephro lithiasis. The liver, spleen, pancreas, gallbladder and adrenal glands are unremarkable. The aorta de monstrates normal caliber and contour. There is no abdominal lymphadenopathy or ascites. Pelvis: Gravid uterus is noted. Anterior placenta is appreciated. There is no evidence of hemorrhage. The remainder of the uterus is unremarkable. The bowel is unremarkable, with no obstructive or infla mmatory changes. The urinary bladder is within normal limits. There is no pelvic lymphadenopathy or a scites. The other pelvic structures appear unremarkable. Bones: There are no suspicious osseous abnormalities seen. Impression: No acute traumatic injury appreciated.
--- NOTE | 2017-05-21 23:50 | REPUSA ---
CT of the head Clinical history: trauma. Technique: Multiple axial CT images were obtained through the head without administration of contrast . Comparison: None. Findings: The ventricles and sulci are symmetric bilaterally. There is no evidence of acute hemorrhag e or infarct. There is no midline shift, mass effect, or extra-axial fluid collection. The osseous st ructures are unremarkable. The visualized paranasal sinuses and mastoid air cells are clear. Impression: Negative study.
--- NOTE | 2017-05-21 23:50 | REPUSA ---
CT of the cervical spine Clinical history: Pain. Technique: Multiple axial CT images were obtained through the cervical spine without administration o f contrast. Coronal and sagittal 3-D reconstructed images were also obtained. Comparison: None. Findings: The cervical vertebral bodies are in satisfactory positioning and alignment. No fractures or dislocat ions are demonstrated. The odontoid process is intact. Intervertebral disc spaces are well-maintained . There is no evidence of facet subluxation. The neural foramen appear grossly patent. The cervical c ranial junction is intact. The cervical spinal canal demonstrates normal caliber and contour without evidence of spinal stenosis. The surrounding soft tissues are within normal limits. Impression: Unremarkable CT examination of the cervical spine.
--- NOTE | 2017-05-21 23:50 | REPUSA ---
CT of the lumbar spine without contrast Clinical history: trauma. Technique: Multiple axial CT images were obtained through the lumbar spine without administration of contrast. Coronal and sagittal 3-D reconstructed images were also obtained. Findings: The lumbar vertebral bodies are in satisfactory positioning and alignment. No fractures or dislocatio ns are demonstrated. Intervertebral disc spaces are well-maintained. There is no evidence of facet son bluxation. The neural foramen appear grossly patent. The spinal canal demonstrates normal caliber and contour without evidence of spinal stenosis. The surrounding soft tissues are within normal limits. A gravid uterus is noted. Impression: Unremarkable CT examination of the lumbar spine.
[2017-05-21 23:59] LABS: ALBUMIN 2.5 GM/DL (3.2-5.2); ALBUMIN/GLOBULIN RATIO 0.68 (1.00-1.93); ALKALINE PHOSPHATASE 75 U/L (45-117); ALT/SGPT 13 U/L (12-78); AMYLASE 45 U/L (25-115); ANION GAP 9 MEQ/L (8-16); AST/SGOT 13 U/L (15-37); BILIRUBIN,DIRECT < 0.1 MG/DL (0.0-0.2); BILIRUBIN,TOTAL 0.1 MG/DL (0.2-1.0); BLOOD UREA NITROGEN 3 MG/DL (7-18); CALCIUM LEVEL 7.7 MG/DL (8.5-10.1); CARBON DIOXIDE LEVEL 22 MEQ/L (21-32); CHLORIDE LEVEL 110 MEQ/L (98-107); CREATININE FOR GFR 0.51 MG/DL (0.55-1.02); GLOMERULAR FILTRATION RATE > 60.0 (>60); GLUCOSE, FASTING 114 MG/DL (70-105); POTASSIUM SERUM 3.1 MEQ/L (3.5-5.1); SODIUM LEVEL 141 MEQ/L (136-145); TOTAL PROTEIN 6.2 GM/DL (6.4-8.2)
[2017-05-22] MEDS: MORPHINE 4 MG/ML 1ML SYRINGE IV PRN
--- NOTE | 2017-05-22 00:44 | REP ---
Clinical: Trauma . Comparison: None . Findings: The mediastinum and cardiac silhouette are stable and within normal limits for portable technique. The lung nina are clear without acute consolidation, effusion, or pneumothorax. Skeletal structures are intact. Questionable small foreign body overlies the left breast/thorax. Impression: Normal portable chest x-ray. Cannot exclude small foreign body overlying the left breast/thorax. Signed by Dante Beauchamp MD 05/22/2017 12:36 A
[2017-05-22] MEDS ORDERED: VITACHTA PO (00:59)
[2017-05-22 01:30] LABS: METHADONE URINE NEGATIVE (NEGATIVE)
== END 2017-05-22 01:19 | disposition admitted as inpatient to this hospital (09) ==
LOC: EDBD 22:04 → M ED 22:56
DX: S06.0X1A Concussion with loss of consciousness of 30 minutes or less, initial encounter (principal); W10.9XXA Fall (on) (from) unspecified stairs and steps, initial encounter; Y92.019 Unspecified place in single-family (private) house as the place of occurrence of the external cause; Y93.89 Activity, other specified; Y99.8 Other external cause status; Z79.899 Other long term (current) drug therapy; Z88.6 Allergy status to analgesic agent; Z3A.00 Weeks of gestation of pregnancy not specified

== ENCOUNTER 2017-05-22 01:32 | Outpatient (CLI) | payer OTHER ==
[~2017-05-22] VITALS: Ht 154.9 cm; Wt 74.0 kg
[~2017-05-22 01:32] MED LIST changes: +VITACHTA PO
[2017-05-22] MEDS ORDERED: ACETAMINOPHEN 500 MG TAB PO PRN (05:15)
--- NOTE | 2017-05-22 05:26 | HPE ---
DATE OF ADMISSION: 05/22/2017 HISTORY: 27-year-old (G) 1, para (P) 0 female at 27-2/7 weeks gestation by last menstrual period (LMP) consistent with 6-week ultrasound, estimated date of confinement (EDC) of 08/18/2017, presents to the emergency room after being found unconscious at the bottom of a set of steps at home. Time of this event was 8:45 p.m. on the day of admission. The patient was not responsive for about 10 minutes and was found right at the bottom of the steps. When she finally came to, she felt sore all over her body. It was assumed that she had a fall down the steps. The total number of steps starting from the top was about five steps. The patient recalls feeling dizzy or lightheaded slightly before the whole episode started. The patient was seen in the emergency room and had clearance for trauma including imaging studies. She had assessment of the fetus by nonstress test while she was in the emergency room (ER). Once she was cleared from a trauma standpoint, she was sent to the labor floor for prolonged monitoring. MEDICAL HISTORY: Rheumatoid arthritis. MEDICATIONS: No current medications, patient was on methotrexate. SURGICAL HISTORY: None. ALLERGIES: 1. IBUPROFEN. 2. HUMIRA. SOCIAL HISTORY: The father of the baby is involved. Patient denies cigarettes, alcohol or drug use. FAMILY HISTORY: Noncontributory. PHYSICAL EXAMINATION: VITAL SIGNS: Blood pressure 115/64, temperature 98.0, pulse 93, oxygen saturation 99%. She is in no apparent distress. HEAD/NECK: Examination normal. LUNGS: Clear. HEART: Regular rate and rhythm. ABDOMEN: Nontender. Gravid. heart tones category 1. Contractions none. EXTREMITIES: Nontender. She has no apparent signs of trauma. No bruising or abrasions on her body. LABORATORIES: Blood type is O negative. Antibody screen negative. Rubella immune. RPR nonreactive. ASSESSMENT: 27-year-old (G) 1, para (P) 0 female at 27-2/7 weeks gestation by last menstrual period (LMP) consistent with 6-week ultrasound, possible trauma and loss of consciousness. PLAN: To monitor for a prolonged period of time due to presumed trauma. Does not appear there is any cardiac event that led to this episode. Patient had extensive workup in the emergency room. Patient did receive RhoGAM as well.
[2017-05-22 07:14] VITALS: BP 87/52
[2017-05-22 08:55] VITALS: BP 97/65
[2017-05-22 11:46] VITALS: BP 90/51
[2017-05-22 12:49] VITALS: BP 98/62
== END 2017-05-22 14:08 | disposition home or self-care (01) ==
LOC: M LDO 01:32
PROVIDERS: ATTEND Specialist
DX: O99.89 Other specified diseases and conditions complicating pregnancy, childbirth and the puerperium (principal); W10.9XXA Fall (on) (from) unspecified stairs and steps, initial encounter; R55 Syncope and collapse; M54.9 Dorsalgia, unspecified; R51 Headache; Z3A.27 27 weeks gestation of pregnancy; M06.9 Rheumatoid arthritis, unspecified; Z88.8 Allergy status to other drugs, medicaments and biological substances; X58.XXXA Exposure to other specified factors, initial encounter; Y93.9 Activity, unspecified; Y92.9 Unspecified place or not applicable; Y99.8 Other external cause status

== ENCOUNTER 2017-05-25 21:58 | Outpatient (CLI) | payer OTHER ==
[~2017-05-25] VITALS: Ht 154.9 cm; Wt 70.0 kg
[2017-05-25 22:13] VITALS: BP 118/69
[2017-05-25 23:04] VITALS: BP 105/68
== END 2017-05-25 23:15 | disposition home or self-care (01) ==
LOC: M LDO 21:58
PROVIDERS: ATTEND Specialist
DX: O26.893 Other specified pregnancy related conditions, third trimester (principal); Z3A.27 27 weeks gestation of pregnancy

== ENCOUNTER 2017-06-27 18:06 | Outpatient (CLI) | payer MEDICAID, OTHER ==
[~2017-06-27] VITALS: Ht 154.9 cm; Wt 75.0 kg
[2017-06-27 18:22] VITALS: BP 112/67
--- NOTE | 2017-06-27 20:32 | IPNPDOC ---
Text Note Date of Service The patient was seen on 06/27/17 at 1845. NOTE Subjective: Patient is a 27-year-old female who is a at 32 weeks 4 days gestation with an SHAGGY of 08/18/2017 based off of her LMP and consistent with her first trimester ultrasound. [facility] at [facility]. Patient's has been complicated by hyperemesis gravidarum and rheumatoid arthritis. Patient was also seen in the ED and L&D after having a syncopal episode and found unresponsive in her home. She presents to labor and delivery with complaints of nausea that has been consistent during the day. She also vomited 1 time in this afternoon. She's been unable to eat since this morning. She does report drinking fluids and being able to keep it down. She also complains of cramping which has been consistent over the last week. She reports not feeling her baby move since 3 AM. She denies taking any medications today. She denies leaking of fluid or vaginal bleeding. She also denies feeling contractions. After patient was placed on the monitor she does report feeling movement and movement is also audible on the external monitor. Allergies: Ibuprofen Current medications: Zantac Medical history: Rheumatoid arthritis which was managed with methotrexate. Surgical history: None Family history: Patient is adopted and does not know family history. Social history: Significant other is present and at bedside with patient. She denies tobacco, alcohol or illegal drug use. Objective: Urine dip: PH 1.005 and all negative. Vital signs: See below. heart rate 135, moderate variability, positive accelerations, no decelerations. Contractions: one 40 second contraction noted. Abdomen: Gravid and soft to palpation. No tenderness with palpation. Respiratory: Rate is regular and no use of accessory muscles. Extremities: Bilateral lower extremities with no pitting edema. Assessment: IUP at 32 weeks 4 days gestation, decreased movement, category 1 heart rate tracing Plan: Encouraged patient to take either a Zofran or Phenergan that she was prescribed for her hyperemesis. Encouraged a BRAT diet until patient's nausea has decreased. Extensive review on movement and kick counting. Patient is encouraged to contact provider if she experiences any vaginal bleeding, leaking of fluid, labor signs or symptoms, or decreased movement. Patient is to contact provider if she is unable to keep fluids or food down for more than 24 hours. Patient discharged to home. VS,Fishbone, I+O VS, Fishbone, I+O Vital Signs Date Time Temp Pulse Resp B/P (MAP) Pulse Ox O2 Delivery O2 Flow Rate FiO2 06/27/17 18:22 98.2 89 16 112/67 (82) ARMINDA LEDESMA CNM Jun 27, 2017 20:32
== END 2017-06-27 19:10 | disposition home or self-care (01) ==
LOC: M LDO 18:06
PROVIDERS: ATTEND Advanced Practice Midwife
DX: O47.03 False labor before 37 completed weeks of gestation, third trimester (principal); O26.893 Other specified pregnancy related conditions, third trimester; M54.9 Dorsalgia, unspecified; O36.8130 Decreased fetal movements, third trimester, not applicable or unspecified; Z3A.32 32 weeks gestation of pregnancy; R11.0 Nausea; M06.9 Rheumatoid arthritis, unspecified; Z88.8 Allergy status to other drugs, medicaments and biological substances

== ENCOUNTER → 2017-07-24 | Outpatient (REF) | payer OTHER ==
[~2017-07-24] MED LIST changes: +OXYC1TAB23 PO; +PRENTAB9 PO
== END ==
LOC: M LAB REF 13:36 → MERGE 13:36
PROVIDERS: ATTEND Advanced Practice Midwife
DX: Z34.83 Encounter for supervision of other normal pregnancy, third trimester (principal)

== ENCOUNTER 2017-08-24 08:07 | Inpatient (IN) | payer OTHER ==
[~2017-08-24] VITALS: Ht 154.9 cm; Wt 82.8 kg
[2017-08-24] VITALS (10 sets, daily range): BP systolic 110–125; BP diastolic 63–89
[~2017-08-24 08:07] MED LIST changes: -OXYC1TAB23 PO; -PRENTAB9 PO
[2017-08-24] MEDS ORDERED: PRENTAB9 PO (08:21)
[2017-08-24] MEDS ORDERED: LR 1,000 ML IV SCH (11:00)
[2017-08-24] MEDS ORDERED: LACTATED RINGER'S 1000 ML IV STA (11:14)
[2017-08-24] MEDS ORDERED: miSOPROStol 50 MCG 1/2 TAB (S0191) SL ONE ×2 (11:15→17:45)
[2017-08-24 11:56] LABS: MEAN CORPUSCULAR HEMOGLOBIN 29.6 pg (27.0-33.0); MEAN CORPUSCULAR HGB CONC 32.6 g/dl (32.0-36.5); MEAN CORPUSCULAR VOLUME 90.7 fl (80.0-96.0); RED CELL DISTRIBUTION WIDTH 16.2 % (11.5-14.5); WHITE BLOOD COUNT 11.4 10^3/uL (4.0-10.0)
[2017-08-24] MEDS ORDERED: PROMETHAZINE INJ 25 MG/ML VIAL (J2550) IV ONE (18:45)
[2017-08-24] MEDS ORDERED: OXYTOCIN DRIP 30 UNITS in APPROPRIATE DILUENT 1 EA IV SCH (18:45)
[2017-08-24] MEDS ORDERED: BUTORPHANOL 2 MG/ML INJ (J0595) IV ONE (18:45)
[2017-08-24] MEDS ORDERED: FENTANYL 2MCG/ML ROPIVACAINE 0.2% IN 0.9% NACL 200ML IVBAG As Ordered ONE (21:44)
[2017-08-24] MEDS ORDERED: fentaNYL 100 MCG/2 ML INJECTION (J3010) As Ordered ONE (23:49)
[2017-08-25] VITALS (7 sets, daily range): BP systolic 96–114; BP diastolic 51–63
[2017-08-25] MEDS ORDERED: EPIDURAL/PCA KEYS XX PRN (00:15)
[2017-08-25] MEDS ORDERED: FENTANYL/ROPIVACAINE/NACL BAG 200 ML EPIDURAL SCH (00:15)
[2017-08-25] MEDS ORDERED: LACTATED RINGER'S 1000 ML IV PRN (00:15)
[2017-08-25] MEDS ORDERED: NALOXONE INJ 0.4 MG/1 ML VIAL (J2310) IV PRN ×3 (00:15→06:20)
[2017-08-25] MEDS ORDERED: REFRIGERATOR IV KEYS XX PRN (00:15)
[2017-08-25] MEDS ORDERED: EPIDURAL COMMENT XX SCH (00:15)
[2017-08-25] MEDS ORDERED: diphenhydrAMINE INJ 50MG/ML VIAL (J1200) IV PRN ×2 (00:15→07:30)
[2017-08-25] MEDS ORDERED: ONDANSETRON 4MG/2ML VIAL (J2405) IV PRN ×4 (00:15→07:30)
[2017-08-25] MEDS ORDERED: ePHEDrine SULFATE 25 MG/5 ML(5MG/ML) SYRINGE IV PRN (00:15)
[2017-08-25] MEDS ORDERED: fentaNYL 100 MCG/2 ML INJECTION (J3010) As Ordered ONE (03:05)
[2017-08-25] MEDS ORDERED: BICITRA 30ML SOLN UDC PO ONE (05:15)
[2017-08-25] MEDS ORDERED: OXYTOCIN INJ 10 UNITS/ML VIAL (J2590) As Ordered ONE ×2 (05:41→06:14)
[2017-08-25] MEDS ORDERED: LIDOCAINE 2% W/EPIN INJ 20ML **PRES FREE As Ordered ONE (05:45)
[2017-08-25] MEDS ORDERED: MORPHINE PRES-FREE INJ 10 MG/10 ML VIAL (J2274) As Ordered ONE (06:11)
[2017-08-25] MEDS ORDERED: ONDANSETRON 4MG/2ML VIAL (J2405) As Ordered ONE (06:14)
[2017-08-25] MEDS ORDERED: METOCLOPRAMIDE INJ 10MG/2ML VIAL (J2765) IV PRN (06:20)
[2017-08-25] MEDS ORDERED: NALBUPHINE HCL 10 MG/ML AMP (J2300) IV PRN ×2 (06:20→07:30)
[2017-08-25 06:37] LABS: CORD GAS ABE A -4.3; CORD GAS HCO3 A 22.2 MEQ/L; CORD GAS O2 SAT A 65.7 %; CORD GAS PCO2 A 45.6 mmHg; CORD GAS PH A 7.305 UNITS; CORD GAS PO2 A 28.6 mmHg; CORD GAS SBC A 20.2 MEQ/L; CORD GAS TCO2 A 23.6 MEQ/L
[2017-08-25 06:39] LABS: CORD GAS ABE V -3.1; CORD GAS HCO3 V 21.5 MEQ/L; CORD GAS O2 SAT V 86.1 %; CORD GAS PCO2 V 37.2 mmHg; CORD GAS PH V 7.38 UNITS; CORD GAS PO2 V 46.1 mmHg; CORD GAS SBC V 21.7 MEQ/L; CORD GAS TCO2 V 22.7 MEQ/L
[2017-08-25] MEDS ORDERED: LR 1,000 ML IV SCH (07:06)
[2017-08-25] MEDS ORDERED: KETOROLAC 30 MG/ML VIAL (J1885) IV SCH (07:15)
[2017-08-25] MEDS ORDERED: MEASLES,MUMPS,RUBELLA VACCINE INJ (MMR-II) (90707) SC SCH (07:15)
[2017-08-25] MEDS ORDERED: PROMETHAZINE 25 MG TAB PO PRN (07:15)
[2017-08-25] MEDS ORDERED: PERCOCET 5MG/325MG TAB PO PRN (07:15)
[2017-08-25] MEDS ORDERED: RHOGAM 300 MCG (1500 IU) INJ (J2790) IM SCH (07:15)
[2017-08-25] MEDS ORDERED: MEPERIDINE INJ 25 MG/ML VIAL (J2175) IV PRN (07:30)
[2017-08-25] MEDS ORDERED: fentaNYL 100 MCG/2 ML INJECTION (J3010) IV PRN (07:30)
[2017-08-25] MEDS ORDERED: OXYC1TAB23 PO (08:50)
[2017-08-25] MEDS: PRENATAL VITAMINS CHEWABLE TABLET PO SCH (09:00)
[2017-08-25] MEDS: DOCUSATE SODIUM 100 MG CAP PO SCH ×2 (09:00→21:14)
[2017-08-25] MEDS: PERCOCET 5MG/325MG TAB PO PRN ×3 (10:39→23:29)
[2017-08-25] MEDS ORDERED: MORPHINE 4 MG/ML 1ML SYRINGE IV PRN (20:00)
[2017-08-26] MEDS: MORPHINE 10 MG/ML 1ML VIAL IV PRN ×2 (02:48→05:59)
[2017-08-26 03:00] VITALS: BP 102/57
[2017-08-26] MEDS: PERCOCET 5MG/325MG TAB PO PRN ×5 (04:59→22:26)
[2017-08-26 06:00] VITALS: BP 97/60
[2017-08-26 06:52] LABS: MEAN CORPUSCULAR HEMOGLOBIN 29.3 pg (27.0-33.0); MEAN CORPUSCULAR HGB CONC 32.1 g/dl (32.0-36.5); MEAN CORPUSCULAR VOLUME 91.2 fl (80.0-96.0); RED CELL DISTRIBUTION WIDTH 16.6 % (11.5-14.5); WHITE BLOOD COUNT 14.2 10^3/uL (4.0-10.0)
[2017-08-26 10:00] VITALS: BP 114/72
[2017-08-26] MEDS: DOCUSATE SODIUM 100 MG CAP PO SCH ×2 (10:11→21:04)
[2017-08-26] MEDS: PRENATAL VITAMINS CHEWABLE TABLET PO SCH (10:11)
[2017-08-26 14:00] VITALS: BP 115/68
[2017-08-26 18:00] VITALS: BP 112/72
[2017-08-26 21:55] VITALS: BP 103/59
[2017-08-27 00:36] VITALS: BP 106/67
[2017-08-27] MEDS: PERCOCET 5MG/325MG TAB PO PRN ×2 (03:12→08:29)
[2017-08-27 06:00] VITALS: BP 113/67
[2017-08-27] MEDS: PRENATAL VITAMINS CHEWABLE TABLET PO SCH (08:28)
[2017-08-27] MEDS: DOCUSATE SODIUM 100 MG CAP PO SCH (08:28)
[2017-08-27] MEDS ORDERED: OXYC1TAB23 PO (09:10)
--- NOTE | 2017-08-27 13:20 | DSES ---
DATE OF ADMISSION: 08/24/2017 DATE OF DISCHARGE: 08/27/2017 27-year-old, 1 female presented at 40 and 6/7 weeks gestation for induction due to late term gestation. course unremarkable. HOSPITAL COURSE: The patient was admitted on 08/24/2017. She received misoprostol for labor induction. She made slow but adequate progress in labor. Upon reaching the second stage of labor, she pushed for several hours but no further descent of the vortex. Decision was made to proceed with section due to arrest of descent. On 08/25/2017, she underwent primary low transverse section. The procedure was without complication. Her postoperative course was unremarkable. She had adequate return of bowel and bladder function. She was deemed stable for discharge on postoperative day number 2. ADMISSION DIAGNOSES: , late term. DISCHARGE DIAGNOSIS: Delivered. PROCEDURE: Primary low transverse section. DISPOSITION: The patient will followup with [facility] in two weeks. Instructions were reviewed.
== END 2017-08-27 12:05 | disposition home or self-care (01) | DRG 540 ==
LOC: M LDI 08:07 → MERGE 08:07 → M OBS 08-25 09:07
PROVIDERS: ADMIT Obstetrics & Gynecology; ATTEND Obstetrics & Gynecology
PROC: 3E0DXGC Introduction of Other Therapeutic Substance into Mouth and Pharynx, External Approach (ICD-10-PCS; 2017-08-24)
PROC: 10D00Z1 Extraction of Products of Conception, Low, Open Approach (ICD-10-PCS; principal; 2017-08-25 06:04)
DX: O48.0 Post-term pregnancy (principal); Z37.0 Single live birth; Z3A.40 40 weeks gestation of pregnancy; O32.4XX0 Maternal care for high head at term, not applicable or unspecified; O64.0XX0 Obstructed labor due to incomplete rotation of fetal head, not applicable or unspecified

== ENCOUNTER 2017-09-17 03:32 | Emergency (ER) | payer OTHER ==
[~2017-09-17] VITALS: Ht 154.9 cm; Wt 75.9 kg
[~2017-09-17 03:32] MED LIST changes: +OXYC1TAB23 PO; +PRENTAB9 PO
[2017-09-17 03:38] VITALS: BP 124/86
[2017-09-17] MEDS ORDERED: GI COCKTAIL 50ML BTL(HYOSCYAMINE/MAALOX/LIDOCAINE VISCOUS)(1:3:1) PO ONE (04:15)
[2017-09-17 04:31] LABS: BASO # 0.1 10^3/uL (0.0-0.2); BASO % 0.7 % (0.0-1.0); EOS # 1.1 10^3/uL (0.0-0.50); EOS % 13.3 % (0.0-3.0); IMMATURE GRANULOCYTE % 0.5 % (0-0); LYMPH # 1.8 10^3/uL (1.5-6.5); LYMPH % 21.3 % (24.0-44.0); MEAN CORPUSCULAR HEMOGLOBIN 28.3 pg (27.0-33.0); MEAN CORPUSCULAR VOLUME 88.5 fl (80.0-96.0); MONO # 0.6 10^3/uL (0.0-0.8); MONO % 7.3 % (0.0-5.0); NEUTROPHILS # 4.8 10^3/uL (1.8-7.7); NEUTROPHILS % 56.9 % (36.0-66.0); PLATELET COUNT, AUTOMATED 297 10^3/uL (150-450); RED CELL DISTRIBUTION WIDTH 14.6 % (11.5-14.5); WHITE BLOOD COUNT 8.5 10^3/uL (4.0-10.0)
[2017-09-17 05:06] LABS: ALBUMIN 3.3 GM/DL (3.2-5.2); ALBUMIN/GLOBULIN RATIO 0.92 (1.00-1.93); ALKALINE PHOSPHATASE 100 U/L (45-117); ALT/SGPT 43 U/L (12-78); ANION GAP 9 MEQ/L (8-16); AST/SGOT 33 U/L (15-37); BILIRUBIN,DIRECT < 0.1 MG/DL (0.0-0.2); BILIRUBIN,TOTAL 0.2 MG/DL (0.2-1.0); BLOOD UREA NITROGEN 16 MG/DL (7-18); CALCIUM LEVEL 8.6 MG/DL (8.5-10.1); CARBON DIOXIDE LEVEL 26 MEQ/L (21-32); CHLORIDE LEVEL 106 MEQ/L (98-107); CREATININE FOR GFR 0.64 MG/DL (0.55-1.02); GLOMERULAR FILTRATION RATE > 60.0 (>60); GLUCOSE, FASTING 95 MG/DL (70-105); POTASSIUM SERUM 4.3 MEQ/L (3.5-5.1); SODIUM LEVEL 141 MEQ/L (136-145); TOTAL PROTEIN 6.9 GM/DL (6.4-8.2)
--- NOTE | 2017-09-17 07:13 | ECGEPIP ---
Stationary ECG Study 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
--- NOTE | 2017-09-17 07:28 | REP ---
Clinical: Chest pain . Comparison: None . Technique: PA and lateral. Findings: The mediastinum and cardiac silhouette are normal. The lung nina are clear and without acute consolidation, effusion, or pneumothorax. The skeletal structures are intact and normal. Impression: 1. No acute cardiopulmonary process. Signed by Dante Beauchamp MD 09/17/2017 07:19 A
== END 2017-09-17 05:31 | disposition home or self-care (01) ==
LOC: MERGE 03:32 → M ED 03:32
DX: R07.9 Chest pain, unspecified (principal)

== ENCOUNTER 2018-01-29 16:40 | Emergency (ER) | payer OTHER, MEDICAID ==
[2018-01-29] MEDS: NS 1,000 ML IV (17:49)
[2018-01-29] MEDS: ONDANSETRON 4MG/2ML VIAL (J2405) IV (17:50)
[2018-01-29] MEDS: MORPHINE 4 MG/ML 1ML VIAL (J2270) IV ×2 (17:50→18:55)
[2018-01-29 18:08] LABS: BASO # 0.1 10^3/uL (0.0-0.2); BASO % 0.7 % (0.0-1.0); EOS # 0.5 10^3/uL (0.0-0.50); EOS % 4.9 % (0.0-3.0); HEMATOCRIT 37.1 % (36.0-47.0); HEMOGLOBIN 12.1 g/dl (12.0-16.0); IMMATURE GRANULOCYTE % 0.3 % (0-3.0); LYMPH # 1.9 10^3/uL (1.5-6.5); LYMPH % 18.8 % (24.0-44.0); MEAN CORPUSCULAR HEMOGLOBIN 27.8 pg (27.0-33.0); MEAN CORPUSCULAR HGB CONC 32.6 g/dl (32.0-36.5); MEAN CORPUSCULAR VOLUME 85.3 fl (80.0-96.0); MONO # 0.7 10^3/uL (0.0-0.8); MONO % 6.9 % (0.0-5.0); NEUTROPHILS # 6.8 10^3/uL (1.8-7.7); NEUTROPHILS % 68.4 % (36.0-66.0); PLATELET COUNT, AUTOMATED 269 10^3/uL (150-450); RED BLOOD COUNT 4.35 10^6/uL (4.00-5.40); RED CELL DISTRIBUTION WIDTH 14.7 % (11.5-14.5); WHITE BLOOD COUNT 9.9 10^3/uL (4.0-10.0)
[2018-01-29 18:34] LABS: ALBUMIN 3.7 GM/DL (3.2-5.2); ALKALINE PHOSPHATASE 78 U/L (45-117); ALT/SGPT 24 U/L (12-78); ANION GAP 4 MEQ/L (8-16); AST/SGOT 18 U/L (7-37); BILIRUBIN,DIRECT 0.1 MG/DL (0.0-0.2); BILIRUBIN,TOTAL 0.4 MG/DL (0.2-1.0); BLOOD UREA NITROGEN 9 MG/DL (7-18); CALCIUM LEVEL 8.4 MG/DL (8.5-10.1); CARBON DIOXIDE LEVEL 27 MEQ/L (21-32); CHLORIDE LEVEL 108 MEQ/L (98-107); CREATININE FOR GFR 0.68 MG/DL (0.55-1.30); GLOMERULAR FILTRATION RATE > 60.0 (>60); GLUCOSE, FASTING 78 MG/DL (70-100); LIPASE 148 U/L (73-393); SODIUM LEVEL 139 MEQ/L (136-145); TOTAL PROTEIN 7.4 GM/DL (6.4-8.2)
[2018-01-29 19:03] LABS: CONTROL LINE HCG INT CTR LINE PRESENT; HCG, SERUM QUALITATIVE NEGATIVE (NEGATIVE)
[2018-01-29] MEDS: KETOROLAC 30 MG/ML VIAL (J1885) IV (20:43)
[2018-01-29 22:07] LABS: KETONE, URINE AUTO RFX NEGATIVE (NEGATIVE); LEUKOCYTE ESTERASE UR AUTO RFX NEGATIVE (NEGATIVE); MUCUS, URINE RFX SMALL (NEGATIVE); NITRITE, URINE AUTO RFX NEGATIVE (NEGATIVE); RBC, URINE AUTO RFX 0 /HPF (0-3); SPECIFIC GRAVITY UR AUTO RFX 1.012 (1.002-1.035); SQUAM EPITHELIAL CELL UR AURFX 0 /HPF (0-6); WBC, URINE AUTO RFX 0 /HPF (0-3)
== END 2018-01-29 22:33 | disposition home or self-care (01) ==
LOC: M ED 16:40
DX: R33.9 Retention of urine, unspecified (principal); R10.32 Left lower quadrant pain; M54.5 Low back pain; M19.90 Unspecified osteoarthritis, unspecified site; Z79.899 Other long term (current) drug therapy; Z88.8 Allergy status to other drugs, medicaments and biological substances
CPT/HCPCS: J2270

== ENCOUNTER → 2018-03-31 | Outpatient (REF) | payer OTHER ==
[2018-03-31 12:55] LABS: BASO # 0.1 10^3/uL (0.0-0.2); BASO % 0.9 % (0.0-1.0); EOS # 0.4 10^3/uL (0.0-0.50); EOS % 2.9 % (0.0-3.0); HEMATOCRIT 39.9 % (36.0-47.0); IMMATURE GRANULOCYTE % 0.5 % (0-3.0); LYMPH # 1.9 10^3/uL (1.5-6.5); LYMPH % 15.5 % (24.0-44.0); MEAN CORPUSCULAR HEMOGLOBIN 28.1 pg (27.0-33.0); MEAN CORPUSCULAR HGB CONC 32.6 g/dl (32.0-36.5); MEAN CORPUSCULAR VOLUME 86.2 fl (80.0-96.0); MONO # 0.8 10^3/uL (0.0-0.8); MONO % 6.5 % (0.0-5.0); NEUTROPHILS % 73.7 % (36.0-66.0); PLATELET COUNT, AUTOMATED 293 10^3/uL (150-450); RED BLOOD COUNT 4.63 10^6/uL (4.00-5.40); RED CELL DISTRIBUTION WIDTH 14.5 % (11.5-14.5); WHITE BLOOD COUNT 12.2 10^3/uL (4.0-10.0)
[2018-03-31 13:22] LABS: VITAMIN B12 LEVEL 1033 PG/ML
[2018-03-31 13:42] LABS: RHEUMATOID FACTOR QUANT < 10.0 IU/ML (<15.0); TOTAL PROTEIN 7.8 GM/DL (6.4-8.2)
[2018-03-31 14:23] LABS: ERYTHROCYTE SEDIMENTATION RATE 8 mm/hr (0-20)
[2018-03-31 14:49] LABS: ESTIMATED AVERAGE GLUCOSE 91 MG/DL (60-110); HEMOGLOBIN A1c 4.8 %
[2018-04-01 11:06] LABS: ALBUMIN 4.25 GM/DL (3.29-5.55); ALBUMIN % 54.5 % (55.8-66.1); ALPHA-1-GLOBULINS 0.39 GM/DL (0.17-0.41); ALPHA-2-GLOBULINS 0.77 GM/DL (0.42-0.99); ALPHA-2-GLOBULINS % 9.9 % (7.1-11.8); BETA-1-GLOBULINS 0.48 GM/DL (0.28-0.60); BETA-1-GLOBULINS % 6.2 % (4.7-7.2); BETA-2-GLOBULINS 0.41 GM/DL (0.19-0.55); BETA-2-GLOBULINS % 5.2 % (3.2-6.5); GAMMA GLOBULIN % 19.2 % (11.1-18.8)
[2018-04-05 00:08] LABS: ANGIOTENSIN 1 CONVERTING ENZYM 32 U/L (14-82); ANTI DOUBLE STRAND-DNA AB 1 IU/mL (0-9); ANTINUCLEAR ANTIBODIES DIRECT Negative (Negative); Lyme Disease IgG/IgM Antibodie <0.91 ISR (0.00-0.90); Lyme Disease IgM Ab Quantitati <0.80 index (0.00-0.79); SJOGREN'S ANTI SS-A <0.2 AI (0.0-0.9); SJOGREN'S ANTI SS-B <0.2 AI (0.0-0.9); VITAMIN B1 LEVEL WHOLE BLOOD 153.5 nmol/L (66.5-200.0); VITAMIN B6,PYRIDOXAL PHOSPHATE 15.1 ug/L (2.0-32.8); VITAMIN E(ALPHA TOCOPHEROL) 6.4 mg/L (5.9-19.4); VITAMIN E(GAMMA TOCOPHEROL) 1.2 mg/L (0.7-4.9)
== END ==
LOC: M LABNEURO 10:03
DX: G62.9 Polyneuropathy, unspecified (principal)
CPT/HCPCS: 82746

== ENCOUNTER 2018-07-14 10:54 | Emergency (ER) | payer OTHER ==
[2018-07-14] MEDS ORDERED: ONDANSETRON 4MG/2ML VIAL (J2405) IV (11:30)
[2018-07-14] MEDS: NS 1,000 ML IV (12:36)
[2018-07-14] MEDS: GI COCKTAIL 50ML BTL(HYOSCYAMINE/MAALOX/LIDOCAINE VISCOUS)(1:3:1) PO (12:36)
[2018-07-14 12:42] LABS: BASO # 0.1 10^3/uL (0.0-0.2); BASO % 0.6 % (0.0-1.0); EOS # 0.1 10^3/uL (0.0-0.50); EOS % 1.7 % (0.0-3.0); HEMATOCRIT 37.1 % (36.0-47.0); HEMOGLOBIN 12.1 g/dl (12.0-15.5); IMMATURE GRANULOCYTE % 0.4 % (0-3.0); LYMPH # 1.5 10^3/uL (1.5-6.5); LYMPH % 18.4 % (24.0-44.0); MEAN CORPUSCULAR HEMOGLOBIN 27.4 pg (27.0-33.0); MEAN CORPUSCULAR HGB CONC 32.6 g/dl (32.0-36.5); MEAN CORPUSCULAR VOLUME 83.9 fl (80.0-96.0); MONO # 0.5 10^3/uL (0.0-0.8); MONO % 6.5 % (0.0-5.0); NEUTROPHILS # 5.8 10^3/uL (1.8-7.7); NEUTROPHILS % 72.4 % (36.0-66.0); PLATELET COUNT, AUTOMATED 297 10^3/uL (150-450); RED BLOOD COUNT 4.42 10^6/uL (4.00-5.40); RED CELL DISTRIBUTION WIDTH 14.6 % (11.5-14.5)
[2018-07-14 13:09] LABS: CONTROL LINE HCG INT CTR LINE PRESENT; HCG, SERUM QUALITATIVE NEGATIVE (NEGATIVE)
[2018-07-14 13:18] LABS: ALBUMIN 3.8 GM/DL (3.2-5.2); ALBUMIN/GLOBULIN RATIO 0.83 (1.00-1.93); ALKALINE PHOSPHATASE 68 U/L (45-117); ALT/SGPT 22 U/L (12-78); ANION GAP 9 MEQ/L (8-16); AST/SGOT 22 U/L (7-37); BILIRUBIN,DIRECT < 0.1 MG/DL (0.0-0.2); BILIRUBIN,TOTAL 0.4 MG/DL (0.2-1.0); BLOOD UREA NITROGEN 12 MG/DL (7-18); CARBON DIOXIDE LEVEL 23 MEQ/L (21-32); CHLORIDE LEVEL 110 MEQ/L (98-107); CPK CREATINE PHOSPHOKINASE 55 U/L (26-192); CREATININE FOR GFR 0.61 MG/DL (0.55-1.30); FREE T4 1.57 NG/DL (0.76-1.46); GLOMERULAR FILTRATION RATE > 60.0 (>60); GLUCOSE, FASTING 78 MG/DL (70-100); LIPASE 175 U/L (73-393); POTASSIUM SERUM 4.5 MEQ/L (3.5-5.1); SODIUM LEVEL 142 MEQ/L (136-145); TOTAL PROTEIN 8.4 GM/DL (6.4-8.2); TROPONIN I < 0.02 NG/ML (< 0.10)
[2018-07-14 13:24] LABS: CK-MB VALUE MASS < 1.0 NG/ML (<3.6); MB/CK RELATIVE INDEX 1.81 (< OR =4)
[2018-07-14] MEDS: MORPHINE 4 MG/ML 1ML VIAL/SYRINGE (J2270) IV (13:46)
== END 2018-07-14 14:24 | disposition home or self-care (01) ==
LOC: M ED 10:54
DX: M94.0 Chondrocostal junction syndrome [Tietze] (principal); R07.89 Other chest pain; K21.9 Gastro-esophageal reflux disease without esophagitis; M06.9 Rheumatoid arthritis, unspecified; Z79.899 Other long term (current) drug therapy; Z88.6 Allergy status to analgesic agent
CPT/HCPCS: J2270

== ENCOUNTER → 2018-08-03 | Outpatient (CLI) | payer OTHER | LOC: M WUC 11:27 | DX: M25.541 Pain in joints of right hand (principal); M25.531 Pain in right wrist; M85.411 Solitary bone cyst, right shoulder; M77.9 Enthesopathy, unspecified | CPT/HCPCS: 73110 ==

== ENCOUNTER 2018-09-11 21:42 | Emergency (ER) | payer OTHER ==
[2018-09-11 22:19] LABS: BASO # 0.1 10^3/uL (0.0-0.2); BASO % 0.6 % (0.0-1.0); EOS # 0.2 10^3/uL (0.0-0.50); EOS % 1.4 % (0.0-3.0); HEMATOCRIT 38.9 % (36.0-47.0); HEMOGLOBIN 12.6 g/dl (12.0-15.5); IMMATURE GRANULOCYTE % 0.3 % (0-3.0); LYMPH % 24.5 % (24.0-44.0); MEAN CORPUSCULAR HEMOGLOBIN 28.5 pg (27.0-33.0); MEAN CORPUSCULAR HGB CONC 32.4 g/dl (32.0-36.5); MONO % 7.9 % (0.0-5.0); NEUTROPHILS # 8.1 10^3/uL (1.8-7.7); NEUTROPHILS % 65.3 % (36.0-66.0); PLATELET COUNT, AUTOMATED 253 10^3/uL (150-450); RED BLOOD COUNT 4.42 10^6/uL (4.00-5.40); RED CELL DISTRIBUTION WIDTH 15.5 % (11.5-14.5); WHITE BLOOD COUNT 12.4 10^3/uL (4.0-10.0)
[2018-09-11 22:27] LABS: BEDSIDE GLUCOSE 95 MG/DL (70-105)
[2018-09-11] MEDS: NS 1,000 ML IV (22:38)
[2018-09-11 22:42] LABS: CK-MB VALUE MASS < 1.0 NG/ML (<3.6); CPK CREATINE PHOSPHOKINASE 49 U/L (26-192); MB/CK RELATIVE INDEX 2.04 (< OR =4); TROPONIN I < 0.02 NG/ML (< 0.10)
[2018-09-11 22:43] LABS: KETONE, URINE AUTO RFX NEGATIVE (NEGATIVE); LEUKOCYTE ESTERASE UR AUTO RFX NEGATIVE (NEGATIVE); NITRITE, URINE AUTO RFX NEGATIVE (NEGATIVE); RBC, URINE AUTO RFX 0 /HPF (0-3); SPECIFIC GRAVITY UR AUTO RFX 1.002 (1.002-1.035); SQUAM EPITHELIAL CELL UR AURFX 1 /HPF (0-6); WBC, URINE AUTO RFX 0 /HPF (0-3)
[2018-09-11 23:07] LABS: ANION GAP 6 MEQ/L (8-16); BLOOD UREA NITROGEN 8 MG/DL (7-18); CALCIUM LEVEL 8.3 MG/DL (8.5-10.1); CARBON DIOXIDE LEVEL 28 MEQ/L (21-32); CHLORIDE LEVEL 106 MEQ/L (98-107); CREATININE FOR GFR 0.77 MG/DL (0.55-1.30); ETHYL ALCOHOL (ETHANOL) < 0.003 % (0.000-0.010); GLOMERULAR FILTRATION RATE > 60.0 (>60); GLUCOSE, FASTING 63 MG/DL (70-100); POTASSIUM SERUM 3.6 MEQ/L (3.5-5.1); SODIUM LEVEL 140 MEQ/L (136-145)
== END 2018-09-12 01:25 | disposition home or self-care (01) ==
LOC: M ED 09-12 01:25
DX: R55 Syncope and collapse (principal)
CPT/HCPCS: 93005

== ENCOUNTER → 2018-10-04 | Outpatient (CLI) | payer OTHER ==
[~2018-10-04] MED LIST changes: +GASTROGRAFIN SOLUTION 30ML (Q9963) As Ordered; +ISOVUE-370 76% 100ML VIAL (Q9967) As Ordered; -ONDA8TAB8 PO; -OXYC1TAB23 PO; -PHEN1SUP6 PR; -PRENTAB9 PO; -PROM25TA PO; -VITACHTA PO
[2018-10-04 16:53] LABS: BASO # 0.1 10^3/uL (0.0-0.2); BASO % 0.6 % (0.0-1.0); EOS # 0.3 10^3/uL (0.0-0.50); EOS % 1.7 % (0.0-3.0); HEMATOCRIT 39.2 % (36.0-47.0); HEMOGLOBIN 12.8 g/dl (12.0-15.5); IMMATURE GRANULOCYTE % 0.5 % (0-3.0); LYMPH # 3.3 10^3/uL (1.5-6.5); LYMPH % 22.2 % (24.0-44.0); MEAN CORPUSCULAR HGB CONC 32.7 g/dl (32.0-36.5); MEAN CORPUSCULAR VOLUME 88.9 fl (80.0-96.0); MONO # 0.9 10^3/uL (0.0-0.8); MONO % 6.1 % (0.0-5.0); NEUTROPHILS # 10.2 10^3/uL (1.8-7.7); NEUTROPHILS % 68.9 % (36.0-66.0); PLATELET COUNT, AUTOMATED 284 10^3/uL (150-450); RED BLOOD COUNT 4.41 10^6/uL (4.00-5.40); RED CELL DISTRIBUTION WIDTH 15.9 % (11.5-14.5); WHITE BLOOD COUNT 14.8 10^3/uL (4.0-10.0)
[2018-10-04 17:24] LABS: ALBUMIN 3.5 GM/DL (3.2-5.2); ALBUMIN/GLOBULIN RATIO 0.83 (1.00-1.93); ALKALINE PHOSPHATASE 67 U/L (45-117); ALT/SGPT 25 U/L (12-78); ANION GAP 7 MEQ/L (8-16); AST/SGOT 13 U/L (7-37); BILIRUBIN,TOTAL 0.3 MG/DL (0.2-1.0); BLOOD UREA NITROGEN 16 MG/DL (7-18); CALCIUM LEVEL 8.7 MG/DL (8.5-10.1); CARBON DIOXIDE LEVEL 26 MEQ/L (21-32); CHLORIDE LEVEL 106 MEQ/L (98-107); CREATININE FOR GFR 0.59 MG/DL (0.55-1.30); GLOMERULAR FILTRATION RATE > 60.0 (>60); GLUCOSE, FASTING 67 MG/DL (70-100); POTASSIUM SERUM 3.7 MEQ/L (3.5-5.1); SODIUM LEVEL 139 MEQ/L (136-145); TOTAL PROTEIN 7.7 GM/DL (6.4-8.2)
[2018-10-04 22:08] LABS: CHLAMYDIA DNA AMPLIFICATION NEGATIVE (NEGATIVE); GC DNA AMPLIFICATION NEGATIVE (NEGATIVE)
== END ==
LOC: M RAD 15:55
DX: N83.202 Unspecified ovarian cyst, left side (principal); R10.31 Right lower quadrant pain
CPT/HCPCS: Q9963

== ENCOUNTER → 2018-12-31 | Outpatient (REF) | payer OTHER ==
[~2018-12-31] MED LIST changes: +ENBR50IN4; -GASTROGRAFIN SOLUTION 30ML (Q9963) As Ordered; -ISOVUE-370 76% 100ML VIAL (Q9967) As Ordered; +NORCOTAB PO; +ONDA8TAB8 PO; +OXYC1TAB23 PO; +PHEN1SUP6 PR; +PRENTAB9 PO; +PROM25TA12 PO; +ROBA500T PO; +VITACHTA PO
[2018-12-31 21:34] LABS: HCG, SERUM QUALITATIVE NEGATIVE (NEGATIVE)
== END ==
LOC: M SFHCADAM 15:07
PROVIDERS: ATTEND Physician Assistant Medical
DX: N93.9 Abnormal uterine and vaginal bleeding, unspecified (principal); R63.5 Abnormal weight gain

== ENCOUNTER → 2019-03-22 | Outpatient (REF) | payer OTHER ==
[~2019-03-22] MED LIST changes: +HYDR-3715 PO; -NORCOTAB PO
[2019-03-22 13:41] LABS: HCG, SERUM QUALITATIVE NEGATIVE (NEGATIVE)
== END ==
LOC: M SFHCADAM 08:03
PROVIDERS: ATTEND Physician Assistant Medical
DX: N91.2 Amenorrhea, unspecified (principal)

== ENCOUNTER → 2019-07-26 | Outpatient (REF) | payer OTHER ==
[~2019-07-26] MED LIST changes: -ENBR50IN4; +ETAN50PE
== END ==
LOC: M LAB REF 17:11
PROVIDERS: ATTEND Obstetrics & Gynecology
DX: Z12.4 Encounter for screening for malignant neoplasm of cervix (principal)

== ENCOUNTER → 2019-09-07 | Outpatient (CLI) | payer OTHER ==
--- NOTE | 2019-09-07 14:53 | REP ---
Pelvic ultrasound including transabdominal, endovaginal and Doppler ultrasound assessment for ovarian cyst: The bladder is adequately distended. The uterus is enlarged measuring 11.3 x 4.3 x 5.2 cm. The uterus is retroverted. The endometrium is not thickened measuring 8.2 mm. There is a trace of free fluid within the endometrial canal. Right ovary: Right ovary measures 4.2 x 2. The tip of 1 cm and is normal size. There is a 2.2 x 2.2 x 2.3 cm right ovarian cyst. There is right ovarian vascular flow with the Doppler resistive index in the parenchymal arteries measuring 0.43. Left ovary: The left ovary measures 3.7 x 1.6 x 3.1 cm and is normal size. There is no dominant mass or cyst. There is vascular flow with the Doppler resistive index in the parenchymal arteries measuring 0.44. Impression: There is a 2.3 cm right ovarian cyst. There is a trace of free fluid in the endometrial canal. There is vascular flow in both ovaries. Electronically Signed by Fredy Hernandez MD 09/07/2019 02:44 P
== END ==
LOC: M RAD 12:38
PROVIDERS: ATTEND Obstetrics & Gynecology
DX: N83.209 Unspecified ovarian cyst, unspecified side (principal)

== ENCOUNTER 2019-09-22 23:25 | Emergency (ER) | payer OTHER ==
[~2019-09-22] VITALS: Ht 154.9 cm; Wt 81.8 kg
[2019-09-22] MEDS ORDERED: METH4TAB28 PO (23:33)
[2019-09-23] MEDS ORDERED: NS 1,000 ML IV ONE (00:30)
[2019-09-23 01:05] LABS: BASO # 0.1 10^3/uL (0.0-0.2); BASO % 0.6 % (0.0-1.0); EOS # 0.3 10^3/uL (0.0-0.5); EOS % 2.8 % (0.0-3.0); HEMATOCRIT 38.1 % (36.0-47.0); HEMOGLOBIN 12.8 g/dl (12.0-15.5); LYMPH # 3.2 10^3/uL (1.5-5.0); LYMPH % 29.3 % (24.0-44.0); MEAN CORPUSCULAR HEMOGLOBIN 31.4 pg (27.0-33.0); MEAN CORPUSCULAR HGB CONC 33.6 g/dl (32.0-36.5); MEAN CORPUSCULAR VOLUME 93.4 fl (80.0-96.0); MONO # 0.7 10^3/uL (0.0-0.8); MONO % 6.5 % (0.0-5.0); NEUTROPHILS # 6.7 10^3/uL (1.5-8.5); NEUTROPHILS % 60.3 % (36.0-66.0); PLATELET COUNT, AUTOMATED 285 10^3/uL (150-450); RED BLOOD COUNT 4.08 10^6/uL (4.00-5.40)
[2019-09-23 01:15] LABS: INR 1.11; PARTIAL THROMBOPLASTIN TIME 28.5 SECONDS (25.0-38.4); PROTHROMBIN TIME 14.1 SECONDS (11.8-14.0)
[2019-09-23 01:36] LABS: ALBUMIN 3.5 GM/DL (3.2-5.2); ALT/SGPT 28 U/L (12-78); BILIRUBIN,DIRECT < 0.1 MG/DL (0.0-0.2); BILIRUBIN,TOTAL 0.4 MG/DL (0.2-1.0); BLOOD UREA NITROGEN 6 MG/DL (7-18); CALCIUM LEVEL 8.6 MG/DL (8.5-10.1); CARBON DIOXIDE LEVEL 27 MEQ/L (21-32); CHLORIDE LEVEL 106 MEQ/L (98-107); CREATININE FOR GFR 0.77 MG/DL (0.55-1.30); FREE T4 1.33 NG/DL (0.76-1.46); GLOMERULAR FILTRATION RATE > 60.0 (>60); GLUCOSE, FASTING 93 MG/DL (70-100); POTASSIUM SERUM 3.6 MEQ/L (3.5-5.1); SODIUM LEVEL 140 MEQ/L (136-145)
--- NOTE | 2019-09-23 02:03 | REPVR ---
PROCEDURE INFORMATION: Exam: US Pelvis Complete, Transabdominal Exam date and time: 09/23/2019 12:44 AM Clinical history: 29 years old, female; Pelvic pain; Additional info: Heavy vaginal bleeding/rlq pain TECHNIQUE: Imaging protocol: Real-time transabdominal pelvic ultrasound with image documentation. Complete exam. COMPARISON: US PELVIC NON-OB COMPLETE 09/07/2019 1:02 PM FINDINGS: Uterus/cervix: Anteverted 10.6 x 4.8 x 6.5 cm uterus with 13 mm endometrium. No uterine masses. Right adnexa: 1.9 x 1.8 x 2 cm right ovary with normal follicular architecture and blood flow. Left adnexa: 2.3 x 2.2 x 2.3 cm left ovary with normal follicular architecture and blood flow. Free fluid: None. Bladder: Normal. IMPRESSION: No acute abnormality. Electronically signed by: Ham Lara On 09/23/2019 02:03:02 AM
[2019-09-23 02:36] VITALS: BP 127/92
== END 2019-09-23 02:43 | disposition home or self-care (01) ==
LOC: M ED 23:25
DX: N93.9 Abnormal uterine and vaginal bleeding, unspecified (principal); E66.9 Obesity, unspecified; Z87.42 Personal history of other diseases of the female genital tract; Z98.890 Other specified postprocedural states; Z88.8 Allergy status to other drugs, medicaments and biological substances

== ENCOUNTER 2019-11-27 04:57 | Emergency (ER) | payer OTHER ==
[~2019-11-27] VITALS: Ht 157.5 cm; Wt 85.0 kg
[~2019-11-27 04:57] MED LIST changes: +METH4TAB8 PO
[2019-11-27] MEDS ORDERED: NS 1,000 ML IV ONE (05:30)
[2019-11-27 05:39] LABS: BASO # 0.1 10^3/uL (0.0-0.2); BASO % 0.9 % (0.0-1.0); EOS # 0.2 10^3/uL (0.0-0.5); EOS % 2.4 % (0.0-3.0); HEMATOCRIT 39.8 % (36.0-47.0); HEMOGLOBIN 12.9 g/dl (12.0-15.5); LYMPH # 3.2 10^3/uL (1.5-5.0); LYMPH % 31.8 % (24.0-44.0); MEAN CORPUSCULAR HEMOGLOBIN 30.5 pg (27.0-33.0); MEAN CORPUSCULAR HGB CONC 32.4 g/dl (32.0-36.5); MEAN CORPUSCULAR VOLUME 94.1 fl (80.0-96.0); MONO # 0.7 10^3/uL (0.0-0.8); MONO % 6.8 % (0.0-5.0); NEUTROPHILS # 5.9 10^3/uL (1.5-8.5); NEUTROPHILS % 57.6 % (36.0-66.0); PLATELET COUNT, AUTOMATED 281 10^3/uL (150-450); RED BLOOD COUNT 4.23 10^6/uL (4.00-5.40); WHITE BLOOD COUNT 10.2 10^3/uL (4.0-10.0)
[2019-11-27 06:00] LABS: ALBUMIN 3.5 GM/DL (3.2-5.2); ALT/SGPT 30 U/L (12-78); BILIRUBIN,DIRECT < 0.1 MG/DL (0.0-0.2); BILIRUBIN,TOTAL 0.3 MG/DL (0.2-1.0); LIPASE 159 U/L (73-393); TOTAL PROTEIN 7.1 GM/DL (6.4-8.2)
[2019-11-27] MEDS ORDERED: MORPHINE 4 MG/ML 1ML VIAL/SYRINGE (J2270) IV PRN (06:30)
[2019-11-27] MEDS ORDERED: ONDANSETRON 4MG/2ML VIAL (J2405) IV ONE (06:30)
[2019-11-27] MEDS ORDERED: ISOVUE-370 76% 100ML VIAL (Q9967) As Ordered ONE (06:30)
--- NOTE | 2019-11-27 07:57 | REPVR ---
PROCEDURE INFORMATION: Exam: CT Abdomen And Pelvis With Contrast Exam date and time: 11/27/2019 6:37 AM Age: 29 years old Clinical indication: Abdominal pain; Localized; Right lower quadrant (rlq); Additional info: Rlq pain R/O appendicitis TECHNIQUE: Imaging protocol: Computed tomography of the abdomen and pelvis with intravenous contrast. Radiation optimization: All CT scans at this facility use at least one of these dose optimization techniques: automated exposure control; mA and/or kV adjustment per patient size (includes targeted exams where dose is matched to clinical indication); or iterative reconstruction. Contrast material: ISOVUE 370; Contrast volume: 100 ml; Contrast route: IV; COMPARISON: CT ABD PELVIS WITH CONTRAST 10/04/2018 6:00 PM FINDINGS: Lungs: Mild basilar airspace disease. Liver: Fatty infiltration of the liver. Gallbladder and bile ducts: Contracted gallbladder limiting evaluation. No biliary ductal dilatation. Pancreas: No pancreatic mass or ductal dilatation. Spleen: Enlarged spleen measuring 13.0 cm in length. Adrenals: Unremarkable adrenals. Kidneys and ureters: Normal renal morphology. No hydronephrosis. Stomach and bowel: No significant small bowel dilatation. Prominent stool. Diverticula, without pericolonic inflammation. Appendix: No acute appendicitis. Intraperitoneal space: No significant free fluid. Vasculature: Normal caliber of the abdominal aorta. Lymph nodes: Subcentimeter lymph nodes. Bladder: Normal bladder morphology. Reproductive: 1.7 cm left ovarian cyst. Bones/joints: No acute osseous pathology. IMPRESSION: 1. No acute appendicitis. 2. 1.7 cm left ovarian cyst. 3. Additional findings as described above. Electronically signed by: Abhilash Vivas On 11/27/2019 07:57:35 AM
[2019-11-27 08:53] LABS: MONO SCRN NEGATIVE (NEGATIVE)
--- NOTE | 2019-11-27 09:06 | REP ---
Clinical: Right lower quadrant pain. Technique: Transabdominal pelvic ultrasound with color Doppler evaluation of the ovaries. Findings: Bladder is normal and measures 13.8 x 10.1 x 7.0 cm. Normal anteverted uterus measures 12.2 x 4.4 x 6.4 cm. Endometrial complex measures 14 mm thickness. No discrete uterine or endometrial abnormalities are appreciated. The bilateral ovaries are normal in appearance and vascularity without torsion. Right ovary measures 3.3 x 1.5 x 2.2 cm (RI 0.72). Left ovary measures 3.3 x 2.4 x 3.5 cm (RI 0.47) and includes 1.6 cm physiologic cyst / dominant follicle. No pelvic free fluid or adnexal mass lesion. Impression: Normal pelvic ultrasound. Electronically Signed by Dante Beauchamp MD 11/27/2019 08:57 A
[2019-11-27 10:12] LABS: CHLAMYDIA DNA AMPLIFICATION NEGATIVE (NEGATIVE); GC DNA AMPLIFICATION NEGATIVE (NEGATIVE)
[2019-11-27] MEDS ORDERED: PERC5TAB12 PO (11:09)
[2019-11-27 11:18] VITALS: BP 122/77
[2019-11-27] MEDS ORDERED: OXYCODONE/APAP 5MG/325MG(BULK FOR ED) 1 TABLET PO ONE (11:30)
== END 2019-11-27 11:34 | disposition home or self-care (01) ==
LOC: M ED 04:57
DX: R10.31 Right lower quadrant pain (principal); R93.5 Abnormal findings on diagnostic imaging of other abdominal regions, including retroperitoneum; R16.1 Splenomegaly, not elsewhere classified; K76.0 Fatty (change of) liver, not elsewhere classified; N83.292 Other ovarian cyst, left side; K21.9 Gastro-esophageal reflux disease without esophagitis; Z88.6 Allergy status to analgesic agent
CPT/HCPCS: 74177; 76856; 80047; 80076; 81001; 83690; 84702; 85025; 86308; 87661; 93041; 96361; 96374; 96375; 99284; J2270; J2405; Q9967

== ENCOUNTER → 2019-11-28 | Outpatient (CLI) | payer OTHER ==
[~2019-11-28] MED LIST changes: +PERC5TAB12 PO
[2019-11-28 18:52] LABS: BASO # 0.1 10^3/uL (0.0-0.2); BASO % 0.9 % (0.0-1.0); EOS # 0.4 10^3/uL (0.0-0.5); EOS % 4.2 % (0.0-3.0); HEMATOCRIT 40.6 % (36.0-47.0); HEMOGLOBIN 13.1 g/dl (12.0-15.5); LYMPH # 1.7 10^3/uL (1.5-5.0); LYMPH % 18.6 % (24.0-44.0); MEAN CORPUSCULAR HEMOGLOBIN 30.9 pg (27.0-33.0); MEAN CORPUSCULAR HGB CONC 32.3 g/dl (32.0-36.5); MEAN CORPUSCULAR VOLUME 95.8 fl (80.0-96.0); MONO # 0.7 10^3/uL (0.0-0.8); MONO % 7.4 % (0.0-5.0); NEUTROPHILS # 6.2 10^3/uL (1.5-8.5); NEUTROPHILS % 68.6 % (36.0-66.0); PLATELET COUNT, AUTOMATED 299 10^3/uL (150-450); RED BLOOD COUNT 4.24 10^6/uL (4.00-5.40); WHITE BLOOD COUNT 9.1 10^3/uL (4.0-10.0)
[2019-11-28 18:58] LABS: ALBUMIN 3.7 GM/DL (3.2-5.2); ALT/SGPT 52 U/L (12-78); AMYLASE 46 U/L (25-115); BILIRUBIN,TOTAL 0.8 MG/DL (0.2-1.0); BLOOD UREA NITROGEN 9 MG/DL (7-18); CALCIUM LEVEL 8.8 MG/DL (8.5-10.1); CARBON DIOXIDE LEVEL 28 MEQ/L (21-32); CHLORIDE LEVEL 105 MEQ/L (98-107); CREATININE FOR GFR 0.81 MG/DL (0.55-1.30); GLOMERULAR FILTRATION RATE > 60.0 (>60); GLUCOSE, FASTING 92 MG/DL (70-100); LIPASE 176 U/L (73-393); POTASSIUM SERUM 3.8 MEQ/L (3.5-5.1); SODIUM LEVEL 139 MEQ/L (136-145); TOTAL PROTEIN 7.4 GM/DL (6.4-8.2)
== END ==
LOC: M PLALAB 12:13
PROVIDERS: ATTEND Physician Assistant Medical
DX: R10.31 Right lower quadrant pain (principal)

== ENCOUNTER → 2020-05-23 | Outpatient (CLI) | payer OTHER ==
[2020-05-28 14:11] LABS: BETA-2 GLYCOPROTEIN I ABY IGA 12 (0-25); BETA-2 GLYCOPROTEIN I ABY IGG 11 (0-20); BETA-2 GLYCOPROTEIN I ABY IGM <9 (0-32); CARDIOLIPIN IGA ANTIBODY <9 APL U/mL (0-11); CARDIOLIPIN IGG ANTIBODY <9 GPL U/mL (0-14); CARDIOLIPIN IGM ANTIBODY <9 MPL U/mL (0-12)
== END ==
LOC: M LAB 10:06
PROVIDERS: ATTEND Internal Medicine Rheumatology
DX: R76.8 Other specified abnormal immunological findings in serum (principal)

== ENCOUNTER → 2020-10-09 | Outpatient (REF) | payer OTHER ==
[2020-10-09 16:00] LABS: HEMATOCRIT 40.2 % (36.0-47.0); HEMOGLOBIN 12.6 g/dl (12.0-15.5); MEAN CORPUSCULAR HEMOGLOBIN 29.4 pg (27.0-33.0); MEAN CORPUSCULAR HGB CONC 31.3 g/dl (32.0-36.5); MEAN CORPUSCULAR VOLUME 93.7 fl (80.0-96.0); PLATELET COUNT, AUTOMATED 281 10^3/uL (150-450); RED BLOOD COUNT 4.29 10^6/uL (4.00-5.40); WHITE BLOOD COUNT 10.6 10^3/uL (4.0-10.0)
== END ==
LOC: M PLALAB 11:41
PROVIDERS: ATTEND Obstetrics & Gynecology
DX: N93.9 Abnormal uterine and vaginal bleeding, unspecified (principal)

== ENCOUNTER → 2020-10-12 | Outpatient (CLI) | payer OTHER ==
--- NOTE | 2020-10-12 11:48 | REP ---
INDICATION: N93.9 AUB. COMPARISON: Comparison pelvic sonography 11/27/2019.. TECHNIQUE: Transabdominal and transvaginal scanning were performed. FINDINGS: Uterus is somewhat elongate measuring 11.1 x 4.5 x 5.9 cm. Endometrial echo is 0.3 cm thick. Patient declined transvaginal imaging. No focal uterine mass is seen. No free fluid is noted. Visualized bladder pompa are smooth.. The right ovary has dimensions of 2.1 x 2.7 x 3.5 cm. It's Doppler flow is normal with a resistive index of 0.32. The left ovary dimensions are normal as well at 2.6 x 1.3 x 2.6 cm. It's Doppler flow was normal with resistive index of 0.51. IMPRESSION: Elongate uterus again noted. Otherwise, no morphologic abnormality.. <Electronically signed by Reyes Feliz > 10/12/20 [id number]
== END ==
LOC: M WHC 09:24
PROVIDERS: ATTEND Obstetrics & Gynecology
DX: N93.9 Abnormal uterine and vaginal bleeding, unspecified (principal); Q51.9 Congenital malformation of uterus and cervix, unspecified

== ENCOUNTER → 2021-04-09 | Outpatient (REF) | payer OTHER ==
[2021-04-09 13:33] LABS: HEMOGLOBIN 12.9 g/dl (12.0-15.5); MEAN CORPUSCULAR HEMOGLOBIN 30.6 pg (27.0-33.0); MEAN CORPUSCULAR HGB CONC 32.3 g/dl (32.0-36.5); MEAN CORPUSCULAR VOLUME 94.8 fl (80.0-96.0); PLATELET COUNT, AUTOMATED 293 10^3/uL (150-450); RED BLOOD COUNT 4.22 10^6/uL (4.00-5.40); WHITE BLOOD COUNT 11.2 10^3/uL (4.0-10.0)
[2021-04-09 14:11] LABS: HEMOGLOBIN A1c 4.6 %
== END ==
LOC: M PLALAB 10:42
PROVIDERS: ATTEND Obstetrics & Gynecology
DX: N97.0 Female infertility associated with anovulation (principal)

== ENCOUNTER → 2021-10-01 | Outpatient (REF) | payer OTHER ==
[2021-10-01 18:15] LABS: BASO # 0.1 10^3/uL (0.0-0.2); BASO % 0.9 % (0.0-1.0); EOS # 0.3 10^3/uL (0.0-0.5); EOS % 2.2 % (0.0-3.0); HEMATOCRIT 40.7 % (36.0-47.0); HEMOGLOBIN 13.3 g/dl (12.0-15.5); LYMPH # 2.8 10^3/uL (1.5-5.0); MEAN CORPUSCULAR HEMOGLOBIN 31.4 pg (27.0-33.0); MEAN CORPUSCULAR HGB CONC 32.7 g/dl (32.0-36.5); MONO # 0.8 10^3/uL (0.0-0.8); MONO % 6.1 % (2.0-8.0); NEUTROPHILS # 8.6 10^3/uL (1.5-8.5); NEUTROPHILS % 68.2 % (36.0-66.0); PLATELET COUNT, AUTOMATED 299 10^3/uL (150-450); RED BLOOD COUNT 4.24 10^6/uL (4.00-5.40); WHITE BLOOD COUNT 12.6 10^3/uL (4.0-10.0)
[2021-10-01 18:29] LABS: APPEARANCE, URINE CLEAR (CLEAR); BACTERIA, URINE AUTO NEGATIVE (NEGATIVE); BILIRUBIN, URINE AUTO NEGATIVE (NEGATIVE); BLOOD, URINE BLOOD NEGATIVE (NEGATIVE); COLOR, URINE YELLOW (YELLOW); GLUCOSE, URINE (UA) AUTO NEGATIVE (NEGATIVE); KETONE, URINE AUTO NEGATIVE (NEGATIVE); LEUKOCYTE ESTERASE, URINE AUTO NEGATIVE (NEGATIVE); MUCUS, URINE SMALL (NEGATIVE); NITRITE, URINE AUTO NEGATIVE (NEGATIVE); PROTEIN, URINE AUTO NEGATIVE (NEGATIVE); RBC, URINE AUTO 1 /HPF (0-3); SPECIFIC GRAVITY URINE AUTO 1.019 (1.002-1.035); SQUAMOUS EPITHELIAL CELL UR AU 1 /HPF (0-6); UROBILINOGEN, URINE AUTO 0.2 mg/dL (0.0-2.0); WBC, URINE AUTO 1 /HPF (0-3)
[2021-10-01 18:41] LABS: ALBUMIN 3.8 GM/DL (3.2-5.2); ALT/SGPT 31 U/L (12-78); BILIRUBIN,DIRECT < 0.1 MG/DL (0.0-0.2); BILIRUBIN,TOTAL 0.3 MG/DL (0.2-1.0); BLOOD UREA NITROGEN 10 MG/DL (7-18); C REACTIVE PROTEIN QUANTITATIV 0.42 MG/DL (0.00-0.30); CALCIUM LEVEL 8.9 MG/DL (8.5-10.1); CARBON DIOXIDE LEVEL 27 MEQ/L (21-32); CHLORIDE LEVEL 108 MEQ/L (98-107); COMPLEMENT C3 145 MG/DL (90-180); COMPLEMENT C4 23 MG/DL (10-40); CPK CREATINE PHOSPHOKINASE 62 U/L (26-192); CREATININE FOR GFR 0.65 MG/DL (0.55-1.30); GLOMERULAR FILTRATION RATE > 60.0 (>60); GLUCOSE, FASTING 74 MG/DL (70-100); IRON (FE) 62 UG/DL (50-170); MAGNESIUM LEVEL 2.2 MG/DL (1.8-2.4); PHOSPHORUS LEVEL 3.9 MG/DL (2.5-4.9); POTASSIUM SERUM 3.7 MEQ/L (3.5-5.1); SODIUM LEVEL 140 MEQ/L (136-145); TOTAL PROTEIN 7.3 GM/DL (6.4-8.2)
[2021-10-01 19:12] LABS: HEPATITIS B SURFACE ANTIBODY POSITIVE (POSITIVE); HEPATITIS B SURFACE ANTIGEN NEGATIVE (NEGATIVE); TOTAL 25(OH) VITAMIN D 29.5 NG/ML (30.0-100.0); VITAMIN B12 LEVEL 472 PG/ML (247-911)
[2021-10-01 19:33] LABS: ERYTHROCYTE SEDIMENTATION RATE 12 mm/hr (0-20)
[2021-10-01 19:47] LABS: HEPATITIS C VIRUS ABY INDEX < 0.0 INDEX (<0.8)
[2021-10-03 15:08] LABS: COMPLEMENT TOTAL (CH50) > 60 U/mL (>41); HEPATITIS B CORE ANTIBODY IGG Negative (Negative)
== END ==
LOC: M SFHCRHEU 14:41
PROVIDERS: ATTEND Internal Medicine
DX: M79.10 Myalgia, unspecified site (principal); M06.4 Inflammatory polyarthropathy; N96 Recurrent pregnancy loss; Z11.59 Encounter for screening for other viral diseases

== ENCOUNTER → 2021-10-03 | Outpatient (CLI) | payer OTHER ==
--- NOTE | 2021-10-03 10:31 | REP ---
INDICATION: OTHER JUVENILE ARTHRITIS, UNSPECIFIED SITE. COMPARISON: None. TECHNIQUE: Four views each ankle FINDINGS: Bilateral: No acute fracture or destructive osseous lesion. The mortise is intact. IMPRESSION: Within normal limits bilateral <Electronically signed by Thang Mcclure > 10/03/21 [id number]
--- NOTE | 2021-10-03 11:53 | REP ---
INDICATION: OTHER JUVENILE ARTHRITIS, UNSPECIFIED SITE. COMPARISON: Right hand of 08/03/2018 TECHNIQUE: Four views each hand FINDINGS: Right hand: There is no significant change compared to the prior exam. Degenerative changes are again seen involving the 1st metacarpal phalangeal joint with asymmetric joint space narrowing and slight osteophytosis. The joint spaces are otherwise symmetric and well maintained throughout. There is no marginal osteophytosis, marginal erosions, or periarticular osteopenia. There is no acute fracture, dislocation, or subluxation. Degenerative changes are seen involving the wrist status quo. Left hand: Rather advanced appearing degenerative changes seen involving the 1st metacarpal phalangeal joint with asymmetric joint space narrowing and evidence of ventral subluxation. There is no prominent marginal osteophytosis there are no sancho marginal erosions. The remainder of the joint spaces are symmetric and well maintained throughout without evidence of marginal osteophytosis, marginal erosions, or periarticular osteopenia. Degenerative changes are seen involving the wrist. IMPRESSION: Chronic changes seen bilaterally particularly affecting the 1st metacarpal phalangeal joint. <Electronically signed by Thang Mcclure > 10/03/21 [id number]
--- NOTE | 2021-10-03 11:57 | REP ---
INDICATION: OTHER JUVENILE ARTHRITIS, UNSPECIFIED SITE COMPARISON: 05/26/2014 right knee TECHNIQUE: Five views each knee FINDINGS: Right knee: Medial compartmental narrowing and medial compartmental marginal osteophytosis has developed since the last exam. There is no acute fracture, dislocation, or subluxation. Left knee: There is minimal medial compartmental marginal osteophytosis. There is mild medial compartmental narrowing. There is no acute fracture, dislocation, or subluxation IMPRESSION: Chronic changes seen bilaterally as described above. <Electronically signed by Thang Mcclure > 10/03/21 [id number]
--- NOTE | 2021-10-03 13:11 | REP ---
INDICATION: OTHER JUVENILE ARTHRITIS, UNSPECIFIED SITE. COMPARISON: Right wrist of 08/03/2018 the only prior TECHNIQUE: Four views each wrist FINDINGS: Right wrist: There is a small cyst in the navicular which is unchanged. There is no acute fracture or destructive osseous lesion. The articular surfaces appears move Left wrist: There is no acute fracture or destructive osseous lesion. There tracheal ir surfaces are smooth IMPRESSION: No acute osseous abnormality seen bilateral <Electronically signed by Thang Mcclure > 10/03/21 [id number]
== END ==
LOC: M RAD 09:31
PROVIDERS: ATTEND Internal Medicine
DX: M08.80 Other juvenile arthritis, unspecified site (principal); M06.4 Inflammatory polyarthropathy

== ENCOUNTER → 2022-06-20 | Outpatient (REF) | payer OTHER ==
[2022-06-20 21:44] LABS: SOURCE, BODY FLUID RT KNEE
[2022-06-20 21:45] LABS: CRYSTALS, BODY FLUID NONE SEEN (NONE SEEN); SOURCE, BODY FLUID CRYSTALS RT KNEE; SYNOVIAL FLUID COLOR YELLOW (COLORLESS)
[2022-06-20 21:47] LABS: SOURCE, BODY FLUID GLUCOSE RT KNEE
== END ==
LOC: M SFHCRHEU 21:09
PROVIDERS: ATTEND Internal Medicine
DX: M17.10 Unilateral primary osteoarthritis, unspecified knee (principal)

== ENCOUNTER → 2022-07-29 | Outpatient (CLI) | payer OTHER ==
[2022-07-29 09:57] LABS: ESTRADIOL 56.3 PG/ML; LUTEINIZING HORMONE 5.7 mIU/mL; PROGESTERONE 0.63 NG/ML
== END ==
LOC: M LAB 08:26
PROVIDERS: ATTEND Obstetrics & Gynecology Reproductive Endocrinology
DX: N97.9 Female infertility, unspecified (principal)

== ENCOUNTER → 2022-07-29 | Outpatient (CLI) | payer OTHER | LOC: M WHC 08:51 | PROVIDERS: ATTEND Obstetrics & Gynecology Reproductive Endocrinology | DX: N97.9 Female infertility, unspecified (principal); N88.8 Other specified noninflammatory disorders of cervix uteri ==

== ENCOUNTER → 2022-08-07 | Outpatient (CLI) | payer OTHER ==
[2022-08-07 10:30] LABS: ESTRADIOL 168.3 PG/ML; PROGESTERONE 10.15 NG/ML
== END ==
LOC: M LAB 08:05
PROVIDERS: ATTEND Obstetrics & Gynecology Reproductive Endocrinology
DX: Z31.49 Encounter for other procreative investigation and testing (principal)

== ENCOUNTER → 2022-08-14 | Outpatient (CLI) | payer OTHER ==
[2022-08-14 09:20] LABS: HCG, SERUM QUANTITATIVE < 1.0 MIU/ML
[2022-08-14 11:49] LABS: PROGESTERONE 1.33 NG/ML
== END ==
LOC: M LAB 07:55
PROVIDERS: ATTEND Obstetrics & Gynecology Reproductive Endocrinology
DX: Z32.00 Encounter for pregnancy test, result unknown (principal)

== ENCOUNTER → 2022-12-08 | Outpatient (REF) | payer OTHER ==
[2022-12-08 15:03] LABS: BASO # 0.1 10^3/uL (0.0-0.2); BASO % 0.9 % (0.0-1.0); EOS # 0.2 10^3/uL (0.0-0.5); EOS % 2.9 % (0.0-3.0); HEMATOCRIT 36.6 % (36.0-47.0); HEMOGLOBIN 12.1 g/dl (12.0-15.5); LYMPH # 1.1 10^3/uL (1.5-5.0); LYMPH % 19.9 % (24.0-44.0); MEAN CORPUSCULAR HEMOGLOBIN 29.3 pg (27.0-33.0); MEAN CORPUSCULAR HGB CONC 33.1 g/dl (32.0-36.5); MEAN CORPUSCULAR VOLUME 88.6 fl (80.0-96.0); MONO # 0.5 10^3/uL (0.0-0.8); MONO % 9.4 % (2.0-8.0); NEUTROPHILS # 3.7 10^3/uL (1.5-8.5); NEUTROPHILS % 66.5 % (36.0-66.0); PLATELET COUNT, AUTOMATED 260 10^3/uL (150-450); RED BLOOD COUNT 4.13 10^6/uL (4.00-5.40); WHITE BLOOD COUNT 5.5 10^3/uL (4.0-10.0)
[2022-12-08 15:20] LABS: ERYTHROCYTE SEDIMENTATION RATE 21 mm/hr (0-20)
[2022-12-08 15:32] LABS: BILIRUBIN,DIRECT 0.2 MG/DL (<0.4)
[2022-12-08 15:33] LABS: TOTAL 25(OH) VITAMIN D 41.5 NG/ML (20.0-100.0)
[2022-12-08 16:03] LABS: ALKALINE PHOSPHATASE 54 U/L (46-116); ALT/SGPT 22 U/L (7.0-40); AST/SGOT 21 U/L (<34); BILIRUBIN,TOTAL 0.4 MG/DL (0.3-1.2); BLOOD UREA NITROGEN 10 MG/DL (9-23); CALCIUM LEVEL 8.9 MG/DL (8.5-10.1); CARBON DIOXIDE LEVEL 25 MMOL/L (20-31); CHLORIDE LEVEL 105 MMOL/L (98-107); CREATININE FOR GFR 0.67 MG/DL (0.55-1.30); GLOMERULAR FILTRATION RATE > 60.0 (>60); GLUCOSE, FASTING 83 MG/DL (60-100); SODIUM LEVEL 140 MMOL/L (136-145)
== END ==
LOC: M SFHCRHEU 12:10
PROVIDERS: ATTEND Internal Medicine
DX: M08.80 Other juvenile arthritis, unspecified site (principal); E55.9 Vitamin D deficiency, unspecified

== ENCOUNTER 2023-01-10 10:37 | Emergency (ER) | payer OTHER ==
[~2023-01-10] VITALS: Ht 154.9 cm; Wt 74.5 kg
[2023-01-10 10:38] VITALS: BP 130/88
[2023-01-10] MEDS ORDERED: HYDR200T3 (10:51)
[2023-01-10 11:19] LABS: BASO # 0.1 10^3/uL (0.0-0.2); BASO % 0.3 % (0.0-1.0); EOS # 0.3 10^3/uL (0.0-0.5); EOS % 1.5 % (0.0-3.0); HEMATOCRIT 39.9 % (36.0-47.0); LYMPH # 0.9 10^3/uL (1.5-5.0); LYMPH % 4.9 % (24.0-44.0); MEAN CORPUSCULAR HEMOGLOBIN 28.8 pg (27.0-33.0); MEAN CORPUSCULAR HGB CONC 32.6 g/dl (32.0-36.5); MEAN CORPUSCULAR VOLUME 88.5 fl (80.0-96.0); MONO # 0.8 10^3/uL (0.0-0.8); MONO % 4.4 % (2.0-8.0); NEUTROPHILS # 15.6 10^3/uL (1.5-8.5); NEUTROPHILS % 88.4 % (36.0-66.0); PLATELET COUNT, AUTOMATED 298 10^3/uL (150-450); RED BLOOD COUNT 4.51 10^6/uL (4.00-5.40); WHITE BLOOD COUNT 17.6 10^3/uL (4.0-10.0)
[2023-01-10] MEDS ORDERED: ONDANSETRON 4MG 2ML VIAL IV ONE (11:35)
[2023-01-10] MEDS ORDERED: MORPHINE 4 MG/ML 1ML VIAL IV ONE (11:35)
[2023-01-10] MEDS ORDERED: NS 1,000 ML IV ONE (11:35)
[2023-01-10 11:38] LABS: LIPASE 31 U/L (12-53)
[2023-01-10 11:40] LABS: ALKALINE PHOSPHATASE 66 U/L (46-116); ALT/SGPT 25 U/L (7.0-40); AST/SGOT < 8 U/L (<34); BILIRUBIN,DIRECT 0.3 MG/DL (<0.4); BILIRUBIN,TOTAL 0.6 MG/DL (0.3-1.2); BLOOD UREA NITROGEN 10 MG/DL (9-23); CARBON DIOXIDE LEVEL 26 MMOL/L (20-31); CHLORIDE LEVEL 106 MMOL/L (98-107); CREATININE FOR GFR 0.61 MG/DL (0.55-1.30); GLOMERULAR FILTRATION RATE > 60.0 (>60); GLUCOSE, FASTING 89 MG/DL (60-100); POTASSIUM SERUM 4.2 MMOL/L (3.5-5.1); SODIUM LEVEL 139 MMOL/L (136-145); TOTAL PROTEIN 7.5 G/DL (5.7-8.2)
[2023-01-10 11:44] LABS: HCG, SERUM QUALITATIVE NEGATIVE (NEGATIVE)
[2023-01-10] MEDS ORDERED: ISOVUE-370 76% 100ML VIAL As Ordered ONE (11:55)
[2023-01-10] MEDS ORDERED: SIMETHICONE 80MG CHEW TAB PO STA (12:59)
[2023-01-10] MEDS ORDERED: DICYCLOMINE 10 MG CAP PO ONE (13:00)
[2023-01-10] MEDS ORDERED: MIRA3350 PO (15:41)
[2023-01-10] MEDS ORDERED: ONDA4TAB6 PO (15:41)
[2023-01-10] MEDS ORDERED: SIME180C25 PO (15:42)
== END 2023-01-10 15:51 | disposition home or self-care (01) ==
LOC: M ED 10:37
DX: R10.31 Right lower quadrant pain (principal); R11.2 Nausea with vomiting, unspecified; R19.7 Diarrhea, unspecified; K21.9 Gastro-esophageal reflux disease without esophagitis; Z79.899 Other long term (current) drug therapy
CPT/HCPCS: 74177; 76856; 80048; 80076; 81002; 83690; 84703; 85025; 93976; 96361; 96374; 96375; 99284; J2270; J2405

== ENCOUNTER → 2024-05-18 | Outpatient (CLI) | payer OTHER ==
[~2024-05-18] MED LIST changes: +HYDR200T46; +MIRA3350 PO; +ONDA-282 PO; +ONDA-284 PO; -ONDA8TAB8 PO; +SIME180C25 PO
== END ==
LOC: M SOG 08:11
PROVIDERS: ATTEND Physician Assistant
DX: M25.561 Pain in right knee (principal); M17.11 Unilateral primary osteoarthritis, right knee

== ENCOUNTER → 2025-07-14 | Outpatient (CLI) | payer OTHER ==
[~2025-07-14] MED LIST changes: -SIME180C25 PO; +SIME1CAP4 PO
[2025-07-14 13:02] LABS: SOURCE, BODY FLUID RT KNEE
[2025-07-14 13:21] LABS: CRYSTALS, BODY FLUID NONE SEEN (NONE SEEN); SOURCE, BODY FLUID CRYSTALS RT KNEE
[2025-07-14 13:54] LABS: BASO # 0.1 10^3/uL (0.0-0.2); BASO % 1.0 % (0.0-1.0); EOS # 0.4 10^3/uL (0.0-0.5); EOS % 5.1 % (0.0-3.0); LYMPH # 1.2 10^3/uL (1.5-5.0); LYMPH % 17.4 % (24.0-44.0); MONO # 0.4 10^3/uL (0.0-0.8); MONO % 5.1 % (2.0-8.0); NEUTROPHILS # 5.0 10^3/uL (1.5-8.5); NEUTROPHILS % 71.1 % (36.0-66.0); PLATELET COUNT, AUTOMATED 278 10^3/uL (150-450)
[2025-07-14 13:58] LABS: ERYTHROCYTE SEDIMENTATION RATE 15 mm/hr (0-20)
[2025-07-14 13:59] LABS: ALT/SGPT 16 U/L (7.0-40); AST/SGOT 19 U/L (<34); C REACTIVE PROTEIN QUANTITATIV 0.56 MG/DL (<1.0); CALCIUM LEVEL 9.1 MG/DL (8.5-10.1); CARBON DIOXIDE LEVEL 28 MMOL/L (20-31); CHLORIDE LEVEL 107 MMOL/L (98-107); CREATININE FOR GFR 0.63 MG/DL (0.55-1.30); GLOMERULAR FILTRATION RATE > 90.0 (>60); POTASSIUM SERUM 4.5 MMOL/L (3.5-5.1); SODIUM LEVEL 143 MMOL/L (136-145)
[2025-07-14 14:01] LABS: RHEUMATOID FACTOR QUANT < 3.5 IU/ML (<14)
[2025-07-19 20:57] LABS: LYME TOTAL ANTIBODY CIA <= 0.90 Index (<=0.90)
== END ==
LOC: M PLALAB 10:51
PROVIDERS: ATTEND Orthopaedic Surgery
DX: M25.461 Effusion, right knee (principal); M17.11 Unilateral primary osteoarthritis, right knee; M25.561 Pain in right knee

== ENCOUNTER → 2025-07-14 | Outpatient (CLI) | payer OTHER | LOC: M SOG 06:51 | PROVIDERS: ATTEND Orthopaedic Surgery | DX: M25.561 Pain in right knee (principal); M25.461 Effusion, right knee; M17.11 Unilateral primary osteoarthritis, right knee ==

== ENCOUNTER → 2025-07-24 | Outpatient (REF) | payer OTHER ==
[2025-07-25 15:08] LABS: SOURCE, BODY FLUID RT KNEE
== END ==
LOC: M LAB REF 16:45
PROVIDERS: ATTEND Physician Assistant
DX: M25.461 Effusion, right knee (principal)

== ENCOUNTER → 2025-08-01 | Outpatient (CLI) | payer OTHER | LOC: M RAD 08:27 | PROVIDERS: ATTEND Physician Assistant | DX: M25.561 Pain in right knee (principal); S83.241A Other tear of medial meniscus, current injury, right knee, initial encounter; X58.XXXA Exposure to other specified factors, initial encounter; Y92.9 Unspecified place or not applicable; Y93.9 Activity, unspecified; Y99.9 Unspecified external cause status; M94.261 Chondromalacia, right knee; M25.461 Effusion, right knee; M65.961 Unspecified synovitis and tenosynovitis, right lower leg ==

== ENCOUNTER 2025-10-17 07:54 | Day surgery (SDC) | payer OTHER ==
[~2025-10-17] VITALS: Ht 154.9 cm; Wt 78.9 kg
[~2025-10-17 07:54] MED LIST changes: +CELE0.09 PO; +ELIQ2.5T PO; -HYDR200T46; +HYDR200T46 PO
[2025-10-17] MEDS ORDERED: LR 1,000 ML IV SCH (08:30)
[2025-10-17] MEDS ORDERED: LIDOCAINE 2% 100 MG/5 ML SDV (FOR ANES.) As Ordered ONE (09:04)
[2025-10-17] MEDS ORDERED: dexAMETHasone 4 MG/ML 1 ML VIAL As Ordered ONE (09:04)
[2025-10-17] MEDS ORDERED: KETOROLAC 30 MG/ML 1 ML VIAL As Ordered ONE (09:04)
[2025-10-17] MEDS ORDERED: ONDANSETRON 4MG/2ML VIAL As Ordered ONE (09:04)
[2025-10-17] MEDS ORDERED: MIDAZOLAM INJ 2 MG/2 ML VIAL As Ordered ONE (09:05)
[2025-10-17] MEDS ORDERED: ceFAZolin SOD 2 GM IV ONCE IV ONE (09:55)
[2025-10-17] MEDS: LIDOCAINE W/EPINEPHrine 1% 20 ML VIAL As Ordered ONE (10:33)
[2025-10-17] MEDS: MORPHINE 10 MG/ML 1 ML VIAL As Ordered ONE (11:02)
[2025-10-17] MEDS ORDERED: HYDROMORPHONE HCL 0.5 MG/0.5 ML SYRINGE IV PRN (11:05)
[2025-10-17] MEDS: ONDANSETRON 4MG/2ML VIAL IV PRN (11:55)
[2025-10-17] MEDS: LR 1,000 ML IV SCH (12:29)
[2025-10-17 13:26] VITALS: BP 130/68; TEMP 97.5; O2SAT 98
== END 2025-10-17 13:29 | disposition home or self-care (01) ==
LOC: M SDC 07:54
PROVIDERS: ATTEND Neuromusculoskeletal Medicine, Sports Medicine
DX: M22.41 Chondromalacia patellae, right knee (principal); M23.303 Other meniscus derangements, unspecified medial meniscus, right knee
CPT/HCPCS: 29881; 81025; J0665; J0688; J1100; J1885; J2250; J2405; J2765; J3010